=== PATIENT | female | born 1950 | race Caucasian/White ===

== ENCOUNTER 2023-07-10 11:33 | Outpatient (OUT) | payer MEDICARE, SELFPAY ==
[2023-07-10 12:34] LABS: Basophils Absolute Auto 0.1 10^3/uL (0.0-0.1); Basophils Percent Auto 0.8 % (0.2-2.0); Eosinophils Absolute Auto 0.2 10^3/uL (0.0-0.7); Hematocrit 40.8 % (36.0-48.0); Hemoglobin 13.3 g/dL (12.0-16.0); Immature Granulocytes Abs Auto 0.01 10^3/uL (0.00-0.03); Immature Granulocytes Pct Auto 0.2 % (0.0-0.5); Lymphocytes Percent Auto 33.3 % (20.5-60.0); Mean Corpuscular HGB Conc 32.6 g/dL (29.9-35.2); Mean Corpuscular Hemoglobin 31.3 pg (26.7-34.0); Monocytes Absolute Auto 0.5 10^3/uL (0.3-0.8); Monocytes Percent Auto 9.1 % (1.7-12.0); Neutrophils Absolute Auto 3.2 10^3/uL (1.4-6.5); Neutrophils Percent Auto 53.6 % (43.0-75.0); Platelet Count 264 10^3/uL (150-450); Red Blood Count 4.25 10^6/uL (4.20-5.40); White Blood Count 5.9 10^3/uL (4.0-11.0)
[2023-07-10 12:41] LABS: Estimated Average Glucose 114 mg/dL; Glycohemoglobin A1C 5.6 % (4.5-6.2)
[2023-07-10 13:47] LABS: Erythrocyte Sedimentation Rate 62 mm/hr (<=30)
[2023-07-10 13:53] LABS: Alanine Aminotransferase 17 U/L (14-59); Albumin Globulin Ratio 0.9; Albumin Level 3.8 g/dL (3.4-5.0); Alkaline Phosphatase 75 U/L (46-116); Anion Gap 12.5; Aspartate Amino Transferase 24 U/L (15-37); BUN Creatinine Ratio 17.1; Bilirubin Total 0.5 mg/dL (0.2-1.0); Calcium 9.6 mg/dL (8.5-10.1); Carbon Dioxide 29.8 mmol/L (21.0-32.0); Chloride 102 mmol/L (98-107); Chol HDL Ratio 5.9; Cholesterol 287 mg/dL (<=200); Estimated GFR (African America >60 (>=60); Estimated GFR (Non-African Ame >60 (>=60); Glucose 101 mg/dL (74-106); HDL Cholesterol 49 mg/dL (40-60); Potassium 4.3 mmol/L (3.5-5.1); Sodium 140 mmol/L (136-145); Thyroid Stimulating Hormone 1.142 uIU/mL (0.358-3.740); Total Protein 7.8 g/dL (6.4-8.2); Triglycerides 162 mg/dL (<=150); VLDL CHOLESTEROL 32.4 mg/dL
[2023-07-10 16:19] LABS: Free T4 1.15 ng/dL (0.76-1.46)
== END 2023-07-10 11:34 | disposition home or self-care (01) ==
LOC: LAB 11:40
PROVIDERS: PCP Family Medicine; Visit Provider Family Medicine
DX: E55.9 Vitamin D deficiency, unspecified (principal); E78.5 Hyperlipidemia, unspecified; R73.09 Other abnormal glucose
CPT/HCPCS: 36415; 80053; 80061; 83036; 84439; 84443; 85025; 85652

== ENCOUNTER 2024-02-26 09:57 | Outpatient (OUT) | payer MEDICARE, SELFPAY ==
[2024-02-26 10:31] LABS: Basophils Absolute Auto 0.1 10^3/uL (0.0-0.1); Basophils Percent Auto 0.9 % (0.2-2.0); Eosinophils Absolute Auto 0.2 10^3/uL (0.0-0.7); Eosinophils Percent Auto 4.3 % (0.9-7.0); Hematocrit 39.8 % (36.0-48.0); Hemoglobin 12.9 g/dL (12.0-16.0); Immature Granulocytes Abs Auto 0.01 10^3/uL (0.00-0.03); Immature Granulocytes Pct Auto 0.2 % (0.0-0.5); Lymphocytes Absolute Auto 1.8 10^3/uL (1.2-3.8); Lymphocytes Percent Auto 32.4 % (20.5-60.0); Mean Corpuscular HGB Conc 32.4 g/dL (29.9-35.2); Mean Corpuscular Hemoglobin 30.8 pg (26.7-34.0); Mean Platelet Volume 8.8 fL (9.5-13.5); Monocytes Absolute Auto 0.5 10^3/uL (0.3-0.8); Monocytes Percent Auto 9.5 % (1.7-12.0); Neutrophils Absolute Auto 2.9 10^3/uL (1.4-6.5); Neutrophils Percent Auto 52.7 % (43.0-75.0); Platelet Count 247 10^3/uL (150-450); Red Blood Count 4.19 10^6/uL (4.20-5.40); Red Cell Distribution Width 12.8 % (11.0-15.0); White Blood Count 5.6 10^3/uL (4.0-11.0)
[2024-02-26 11:43] LABS: Estimated Average Glucose 117 mg/dL; Glycohemoglobin A1C 5.7 % (4.5-6.2)
[2024-02-26 11:49] LABS: Alanine Aminotransferase 22 U/L (14-59); Albumin Globulin Ratio 0.9; Albumin Level 3.4 g/dL (3.4-5.0); Alkaline Phosphatase 74 U/L (46-116); Aspartate Amino Transferase 18 U/L (15-37); BUN Creatinine Ratio 14.3; Bilirubin Total 0.4 mg/dL (0.2-1.0); Calcium 9.3 mg/dL (8.5-10.1); Carbon Dioxide 29.4 mmol/L (21.0-32.0); Chloride 105 mmol/L (98-107); Chol HDL Ratio 5.8; Cholesterol 280 mg/dL (<=200); Estimated GFR (African America >60 (>=60); Estimated GFR (Non-African Ame >60 (>=60); Free T3 2.71 pg/mL (2.18-3.98); Glucose 95 mg/dL (74-106); HDL Cholesterol 48 mg/dL (40-60); Potassium 4.4 mmol/L (3.5-5.1); Sodium 142 mmol/L (136-145); Thyroid Stimulating Hormone 1.972 uIU/mL (0.358-3.740); Total Protein 7.4 g/dL (6.4-8.2); Triglycerides 233 mg/dL (<=150); VLDL CHOLESTEROL 46.6 mg/dL
== END 2024-02-26 09:58 | disposition home or self-care (01) ==
LOC: LAB 10:00
PROVIDERS: PCP Family Medicine; Visit Provider Family Medicine
DX: R41.3 Other amnesia (principal); E55.9 Vitamin D deficiency, unspecified; M79.7 Fibromyalgia; E78.5 Hyperlipidemia, unspecified; R73.09 Other abnormal glucose; D64.9 Anemia, unspecified
CPT/HCPCS: 36415; 80053; 80061; 82306; 83036; 83540; 84436; 84443; 84481; 85025

== ENCOUNTER 2024-03-02 12:39 | Outpatient (OUT) | payer MEDICARE, SELFPAY ==
--- NOTE | 2024-03-02 12:44 | XR_ITS ---
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 FINDINGS: SPINE ANALYSIS: Average bone mineral density is 0.862 g/cm2. T-score (standard deviation relative to young adult mean): -2.8 . +0.4% change since prior study. HIP ANALYSIS: Lowest bone mineral density is within the right femoral neck, 0.67 g/cm2. T-score (standard deviation relative to young adult mean): -3.0 . -3.3% change since prior study. XR/XR DEXA axial skeleton IMPRESSION: [employer] Classification: Osteoporosis - High Fracture Risk FRAX: Unable to be calculated. Electronically authenticated by: ARMAND BOGGS Date: 03/02/2024 13:38
--- NOTE | 2024-03-02 12:44 | US_ITS ---
[address] [address] Patient Name: DENI WORTHY MRN: [id number] date: 1950 Sex: F Assigned Patient Location: Current Patient Location: Accession/Order Number: [id number] Exam Date: 03/02/2024 12:46 Report Date: 03/03/2024 05:58 At the request of: TOSHIA MAHARAJ Procedure: US carotid duplex BI EXAMINATION: US carotid duplex BI HISTORY: Occlusion and stenosis of bilateral carotid arteries I65.23 COMPARISON: No relevant comparison available. TECHNIQUE: Duplex Doppler ultrasound analysis of carotid and vertebral arteries. . Bilateral carotid arterial duplex examination was performed using B-mode, color flow and spectral analysis. Carotid stenosis is reported according to validated velocity parameters, similar to NASCET criteria. FINDINGS: RIGHT CAROTID ARTERY: Mild plaque without significant stenosis. RIGHT VERTEBRAL: Antegrade flow. Subclavian: PSV: 143.7 cm/s EDV: 0.0 cm/s CCA: Prox: PSV: 118.1 cm/s EDV: 19.5 cm/s Mid: PSV: 112.1 cm/s EDV: 17.5 cm/s Distal: PSV: 98.4 cm/s EDV: 19.5 cm/s BULB: PSV: 78.6 cm/s EDV: 15.6 cm/s ICA: Prox: PSV: 101.6 cm/s EDV: 22.4 cm/s Mid: PSV: 64.4 cm/s EDV: 17.6 cm/s Distal: PSV: 129.0 cm/s EDV: 37.0 cm/s ECA: PSV: 112.3 cm/s EDV: 5.8 cm/s VERTEBRAL: PSV: 72.0 cm/s EDV: 15.5 cm/s ICA/CCA ratio: PSV: 1.3 EDV: 1.9 LEFT CAROTID ARTERY: Mild plaque without significant stenosis. LEFT VERTEBRAL: Antegrade flow. Subclavian: PSV: 189.4 cm/s EDV: 0.0 cm/s CCA: Prox: PSV: 145.1 cm/s EDV: 28.8 cm/s Mid: PSV: 91.4 cm/s EDV: 23.6 cm/s Distal: PSV: 118.9 cm/s EDV: 23.6 cm/s BULB: PSV: 101.1 cm/s EDV: 18.7 cm/s ICA: Prox: PSV: 91.4 cm/s EDV: 31.7 cm/s Mid: PSV: 86.6 cm/s EDV: 22.0 cm/s Distal: PSV: 67.2 cm/s EDV: 18.7 cm/s ECA: PSV: 99.4 cm/s EDV: 5.8 cm/s VERTEBRAL: PSV: 91.4 cm/s EDV: 26.8 cm/s ICA/CCA ratio: PSV: 0.9 EDV: 0.8 US/US carotid duplex BI IMPRESSION: 1. 0-49% flow stenosis within the right and left carotid arteries. 2. Mild atherosclerotic disease bilaterally. Spectral Doppler US Thresholds Stenosis (%) PSV (cm/sec) VICA/VCCA 0-49 <150 <2.5 50-69 150-225 2.5-4.0 >70 >225 >4.0 Electronically authenticated by: ARMAND BOGGS Date: 03/03/2024 05:58
== END 2024-03-02 12:40 | disposition home or self-care (01) ==
LOC: US 12:40
PROVIDERS: PCP Family Medicine; Visit Provider Family Medicine
DX: I65.23 Occlusion and stenosis of bilateral carotid arteries (principal); E28.39 Other primary ovarian failure; M81.0 Age-related osteoporosis without current pathological fracture
CPT/HCPCS: 77080; 93880

== ENCOUNTER 2024-03-17 07:35 | Outpatient (RCR) | payer MEDICARE, SELFPAY ==
--- NOTE | 2024-03-17 14:04 | PC.NURSE ---
1400 tolerated injection without any s/s of reaction, educated on need to be taking calcium 1200 mg with vitamin. patient and daughter verbalize understanding. Released ambulatory
[2024-03-17] MEDS: DENOSUMAB 60 MG/ML SYRINGE SUBQ (14:40)
== END 2024-03-19 23:59 | disposition home or self-care (01) ==
LOC: INF 07:35
PROVIDERS: PCP Family Medicine; Visit Provider Family Medicine
DX: R41.3 Other amnesia (principal); I67.82 Cerebral ischemia; M81.0 Age-related osteoporosis without current pathological fracture
CPT/HCPCS: 70551; 96372; J0897

== ENCOUNTER 2024-03-17 12:27 | Outpatient (OUT) | payer MEDICARE, SELFPAY ==
--- OUTSIDE RECORDS SUMMARY | 2024-03-17 12:31 | XMS_ITS ---
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 Name Role Phone CAROL ANN, DR POPE Attending Unavailable HOY, DR POPE Primary Care Unavailable HOY, DR POPE Admitting Unavailable HOY, DR POPE Primary Care Unavailable HOY, DR POPE Consulting Unavailable HOY, DR POPE Admitting Unavailable HOY, DR POPE Attending Unavailable HOY, DR POPE Attending Unavailable HOY, DR POPE Primary Care Unavailable HOY, DR POPE Consulting Unavailable HOY, DR POPE Admitting Unavailable ZIEBER, DR ARMAND Pedro Consulting Unavailable HOY, DR POPE Attending Unavailable HOY, DR POPE Primary Care Unavailable HOY, DR POPE Consulting Unavailable HOY, DR POPE Admitting Unavailable ZIEBER, DR ARMAND Pedro Consulting Unavailable NILL, DR PARKS Admitting Unavailable HOY, DR POPE Primary Care Unavailable NILL, DR PARKS Consulting Unavailable NILL, DR PARKS Attending Unavailable HOY, DR POPE Attending Unavailable HOY, DR POPE Admitting Unavailable HOY, DR POPE Primary Care Unavailable HOY, DR POPE Primary Care Unavailable HOY, DR POPE Admitting Unavailable HOY, DR POPE Attending Unavailable HOY, DR POPE Primary Care Unavailable HOY, DR POPE Admitting Unavailable HOY, DR POPE Attending Unavailable HEREDIA, DR MIKE Pedro Consulting Unavailable HOY, DR POPE Consulting Unavailable WEST, DR TONJA Gray Consulting Unavailable PAY, DR WRIGHT Consulting Unavailable Violet, Kasey Consulting Unavailable HOY, DR POPE Attending Unavailable HOY, DR POPE Primary Care Unavailable HOY, DR POPE Admitting Unavailable HOY, DR POPE Primary Care Unavailable REQUEST, DR CHATTERJEE LISTED Consulting Unavaila ble REQUEST, DR CHATTERJEE LISTED Attending Unavaila ble REQUEST, DR CHATTERJEE LISTED Admitting Unavaila ble CAROL ANN, DR POPE Primary Care Unavailable REQUEST, NONE LISTED Consulting Unavaila ble REQUEST, NONE LISTED Attending Unavaila ble REQUEST, DR CHATTERJEE LISTED Admitting Unavaila ble HOY, DR POPE Consulting Unavailable HOY, DR POPE Attending Unavailable HOY, DR POPE Admitting Unavailable HOY, DR POPE Primary Care Unavailable HOY, DR POPE Consulting Unavailable HOY, DR POPE Attending Unavailable HOY, DR POPE Admitting Unavailable HOY, DR POPE Primary Care Unavailable WEST, DR TONJA Gray Consulting Unavailable CAROL ANN, DR POPE Primary Care Unavailable RAMCYNKLIZ Admitting Unavailable RAMCYNKLIZ Consulting Unavailable RAMBASEK, LIZ Attending Unavailable Tonja Fink Unavailable Allergies Allergy Classification Reported Allergen(s) Allergy Type Date of Onset Reaction(s) Facility (2 sources) Codeine Drug Allergy [facility] Repository (2 sources) house dust allergenic extract Drug Allergy [facility] (2 sources) [place] Containing Products Drug allergy (disorder) [facility] (2 sources) pine oil (Pinus sylvestris) Drug allergy (disorder) [facility] (2 sources) Codeine Drug Allergy vomiting [facility] Other (2 sources) multiple food allergies Propensity to adverse reactions Unknown Vascular Magnetics [facility] Social Intelligence Other Encounters Encounter Date Encounter Type Care Provider Facility Start: 08-30-2021 End: 08-30-2021 ambulatory Tonja Fink Other [facility] Other Start: 08-30-2021 Telephone encounter Tonja Fink [facility] Gastroenter[facility] Start: 08-10-[address] TOSHIA MAY Facility :[facility] Start: 08-07-2021 Office outpatient visit 25 minutes Tonja Fink [facility] Start: 08-01-2021 End: 08-02-[address] TOSHIA MAY Facility:[facility] Start: 07-10-2021 End: 07-11-[address] TOSHIA MAY Facility:[facility] Start: 06-13-2021 End: 06-13-[address] KASEY URIBE Facility:[facility] Start: 03-30-2021 End: 03-31-[address] TOSHIA MAY Facility:[facility] Start: 03-27-[address] TOSHIA MAY Facility :[facility] Start: 01-09-2021 End: 01-10-[address] TOSHIA MAY Facility:[facility] Start: 12-25-2020 End: 12-26-[address] TOSHIA MAY Facility:[facility] Start: 12-20-2020 End: 12-21-[address] TOSHIA MAY Facility:[facility] Start: 12-19-2020 End: 12-20-[address] TOSHIA MAY Facility:[facility] Start: 12-18-2020 End: 12-19-[address] TOSHIA MAY Facility:[facility] Start: 11-03-2020 End: 11-04-[address] TOSHIA MAY Facility:[facility] Start: 10-31-[address] TOSHIA MAY Facility :[facility] Medications Current Medications Medication Drug Class(es) Dates Sig (Normalized) Sig (Original) Citalopram (2 sources) Serotonin Reuptake Inhibitor CeleXA Active colestipol hydrochloride 1000 mg oral tablet (2 sources) Bile Acid Sequestrant Start: 08-07-2021 take 2 tablets by mouth every twenty-four hours Colestipol HCl 1 GM 2 tablets Orally Once a day for 30 days Jul, Active Completed/Discontinued Medications Medication Drug Class(es) Dates Sig (Normalized) Sig (Original) dicyclomine hydrochloride 20 mg oral tablet (2 sources) Anticholinergic Start: 08-01-2020 take 1 tablet by mouth every twelve hours Dicyclomine HCl 20 MG 1 tablet Orally TWICE A DAY for 30 day(s) Jul, Not-Taking metroNIDAZOLE 500 mg oral tablet (2 sources) Nitroimidazole Antimicrobial Start: 08-01-2020 take 1 tablet by mouth every eight hours metroNIDAZOLE 500 MG 1 tablet Orally Three times a day for 10 day(s) Jul, Not-Taking pantoprazole 40 mg delayed release oral tablet (2 sources) Proton Pump Inhibitor Start: 02-04-2019 take 1 tablet by mouth every twenty-four hours Pantoprazole Sodium 40 MG 1 tablet Orally Once a day for 30 day(s) Jan, Not-Taking Psyllium (2 sources) Metamucil Not-Taking Simvastatin (2 sources) HMG-CoA Reductase Inhibitor Simvastatin Not-Taking Suprep Bowel Prep Kit 17.5-3.13-1.6 GM/180ML (2 sources) Start: 05-07-2019 take 177 mL by mouth in the evening, then take 177 mL by mouth twice daily in the evening Suprep Bowel Prep Kit 17.5-3.13-1.6 GM/180ML 177 ml bottle at 4 pm and 177 ml bottle at 11 pm Orally Twice a day for 1 day(s) PLEASE CHECK ALLERGIES Apr, Not-Taking Payers Date Payer Category Payer Medicare [id number] 1961 Medicare [id number] 1961 Self-pay 1961 Unknown [id number] 1950 Unknown [id number] 2.16.84 [id number] 1950 Unknown [id number] 2.16.84 [id number] 1950 Unknown [id number] 2.16.84 [id number] 1950 Unknown [id number] 2.16.84 0.1.457152.3.579.2.593 1950 Unknown [id number] 2.16.84 0.1.842841.3.579.2.593 1950 Unknown [id number] 2.16.84 0.1.036007.3.579.2.593 1950 Unknown [id number] 2.16.84 0.1.076816.3.579.2.593 1950 Unknown [id number] 2.16.84 0.1.258926.3.579.2.593 1950 Unknown [id number] 2.16.84 0.1.108222.3.579.2.593 1950 Unknown [id number] 2.16.84 0.1.317734.3.579.2.593 1950 Unknown [id number] 2.16.84 0.1.664082.3.579.2.593 1950 Unknown [id number] 2.16.84 0.1.372644.3.579.2.593 Unknown [id number] 2.16.84 0.1.948697.3.579.2.593 Unknown [id number] 2.16.84 0.1.696677.3.579.2.593 Problems Active Problems Problem Classification Problem Date Documented Da te Episodic/Chronic Esophageal disorders (2 sources) Gastro-esophageal reflux disease without esophagitis; Translations: [Esophageal obstruction] Onset: 04-04-2021 Chronic Essential hypertension (1 source) Essential (primary) hypertension; Translations: [ESSENTIAL PRIMARY HYPERTENSION] Onset: 04-04-2021 Chronic Genitourinary symptoms and ill-defined conditions (5 sources) Dysuria; Translations: [Personal history of urinary (tract) infections] Onset: 04-04-2021 Episodic Mood disorders (1 source) Major depressive disorder, single episode, unspecified; Translations: [JULIAN DEPRESS D/O SINGLE EPIS UNS] Onset: 04-04-2021 Chronic Other connective tissue disease (1 source) Presence of unspecified artificial shoulder joint; Translations: [PRESENCE UNS ARTFICIAL SHOULDR JNT] Onset: 04-04-2021 Chronic Other gastrointestinal disorders (2 sources) Irritable bowel syndrome with diarrhea; Translations: [Irritable bowel syndrome with diarrhea] Chronic Other gastrointestinal disorders (1 source) Irritable bowel syndrome with diarrhea; Translations: [Irritable bowel syndrome with diarrhea K58.0] Onset: 08-07-2021 Resolved: 08-07-2021 Chronic Other non-traumatic joint disorders (4 sources) Pain in right hip; Translations: [PAIN IN RIGHT HIP] Onset: 07-10-2021 Episodic Other non-traumatic joint disorders (1 source) Pain in left hip; Translations: [PAIN IN LEFT HIP] Onset: 07-20-2021 Episodic Other skin disorders (4 sources) Sebaceous cyst; Translations: [SEBACEOUS CYST] Onset: 06-13-2021 Episodic Spondylosis; intervertebral disc disorders; other back problems (1 source) Other intervertebral disc degeneration, lumbosacral region; Translations: [OTH IV DISC DEGEN LUMBOSACRAL RGN] Onset: 11-09-2020 Chronic Unclassified (1 source) CONTACT W/AND (SUSP) EXPOS COVID-19; Translations: [CONTACT W/AND (SUSP) EXPOS COVID-19] Onset: 04-04-2021 Past or Other Problems Problem Classification Problem Date Documented Da te Episodic/Chronic Abdominal pain (6 sources) Unspecified abdominal pain; Translations: [Right lower quadrant pain] Onset: 12-19-2020 Resolved: 08-07-2021 Episodic Calculus of urinary tract (1 source) Personal history of urinary calculi; Translations: [PERSONAL HISTORY OF URINARY CALCULI] Onset: 04-04-2021 Episodic Hemorrhoids (1 source) Unspecified hemorrhoids; Translations: [UNSPECIFIED HEMORRHOIDS] Onset: 04-04-2021 Episodic Nonspecific chest pain (5 sources) Chest pain, unspecified; Translations: [Other chest pain] Onset: 03-30-2021 Episodic Other aftercare (1 source) Other coding file clerk (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; Translations: [OTH AMERICAN SIGN LANGUAGE INTERPRETER CURRENT DRUG THERAPY] Onset: 04-04-2021 Episodic Other and unspecified benign neoplasm (2 sources) Personal history of colonic polyps; Translations: [PERSONAL HISTORY OF COLONIC POLYPS] Onset: 04-04-2021 Resolved: 08-07-2021 Episodic Other and unspecified benign neoplasm (2 sources) History of polyp of colon; Translations: [Personal history of colonic polyps] Episodic Other connective tissue disease (1 source) Fibromyalgia; Translations: [FIBROMYALGIA] Onset: 04-04-2021 Episodic Other gastrointestinal disorders (1 source) Diarrhea, unspecified; Translations: [DIARRHEA UNSPECIFIED] Onset: 04-04-2021 Episodic Other lower respiratory disease (1 source) Shortness of breath; Translations: [SHORTNESS OF BREATH] Onset: 04-04-2021 Episodic Other lower respiratory disease (4 sources) Cough; Translations: [COUGH] Onset: 12-25-2020 Episodic Other screening for suspected conditions (not mental disorders or infectious disease) (4 sources) Other abnormal tumor markers; Translations: [OTHER ABNORMAL TUMOR MARKERS] Onset: 12-20-2020 Episodic Residual codes; unclassified (1 source) Acquired absence of both cervix and uterus; Translations: [ACQUIRED ABSENCE BOTH CERVIX AND UTERUS] Onset: 04-04-2021 Episodic Residual codes; unclassified (1 source) Acquired absence of other specified parts of digestive tract; Translations: [ACQ ABSENCE OTH PART DIGESTV TRACT] Onset: 04-04-2021 Episodic Residual codes; unclassified (2 sources) History of partial resection of colon; Translations: [Acquired absence of other specified parts of digestive tract] Episodic Results Test Name Value Interpretation Reference Range Facility CULTURE URINEon 08-01-2021 CULTURE URINE Culture Observations : No growth Normal [facility] Comment on above: Performed By: #### C MADM, CMP #### [facility] [address] [place] [address] Shakila Reardon UA (CLEAN/CATCH) MICROSCOPIC IF INDICATEon 08-01-2021 Bilirubin Ql (U) Negative Normal NEGATIVE [facility] Comment on above: Performed By: #### U ARMICR #### [facility] [address] [place] [address] Dr. Jarett Chou Clarity (U) CLEAR Normal CLEAR [facility] Comment on above: Performed By: #### U ARMICR #### [facility] [address] [place] [address] Dr. Jarett Chou Color (U) YELLOW Normal YELLOW [facility] Comment on above: Performed By: #### U ARMICR #### [facility] [address] [place] [address] Dr. Jarett Chou Glucose Ql (U) Negative Normal NEGATIVE [facility] Comment on above: Performed By: #### U ARMICR #### [facility] [address] [place] [address] Dr. Jarett Chou Hemoglobin Ql (U) Negative Normal NEGATIVE [facility] Comment on above: Performed By: #### U ARMICR #### [facility] [address] [place] [address] Dr. Jarett Chou Ketones Ql (U) Negative Normal NEGATIVE [facility] Comment on above: Performed By: #### U ARMICR #### [facility] [address] [place] [address] Dr. Jarett Chou LEUKOCYTES Negative Normal NEGATIVE [facility] Comment on above: Performed By: #### U ARMICR #### [facility] [address] [place] [address] Dr. Jarett Chou Nitrite Ql (U) Negative Normal NEGATIVE [facility] Comment on above: Performed By: #### U ARMICR #### [facility] [address] [address] [address] Jarett Chou pH (U) 5.5 [pH] Normal 5-9 [facility] Comment on above: Performed By: #### U ARMICR #### [facility] [address] [address] [address] Jarett Chou SPEC GRAVITY 1.025 Normal 1.005-<=1.025 [facility] Comment on above: Performed By: #### U ARMICR #### [facility] [address] [address] [address] Jarett Chou UA PROTEIN Negative Normal NEGATIVE/ TRACE [facility] Comment on above: Performed By: #### U ARMICR #### [facility] [address] [place] [address] Dr. Jarett Chou UR MICRO IND NOT INDICATED Normal [facility] Comment on above: Performed By: #### U ARMICR #### [facility] [address] [address] [address] Jarett Chou Urobilinogen Qn (U) 0.2 {Inocencio'U}/dL Normal 0.2 - 1.0 [facility] Comment on above: Performed By: #### U ARMICR #### [facility] [address] [place] [address] Dr. Jarett Chou Provider Letter [facility]-20 Provider Letter [facility] June 20, 2021 Toshia May, [facility] [place] [address] Re: MARCIA WORTHY Date of : 1950 Thank you for your referral of Marcia Worthy who was seen on consultation on June 19, 2021, for sebaceous cyst right breast. I have enclosed my consultation notes for your review. I will be happy to follow Marcia should her symptoms persist. Sincerely, Kasey Uribe MD General Surgery [facility] Provider Letter [facility] June 20, 2021 Toshia May, [address] [place] [address] Re: MARCIA WORTHY Date of : 1950 Thank you for your referral of Joseph Galarza who was seen on consultation on June 12, 2021, for epigastric pain with cramping, bloating, and nausea. Testing is planned for further evaluation. I have enclosed my consultation note for your review. I will be happy to follow Joseph should his symptoms persist. Sincerely, Kasey Uribe MD General Surgery Normal [facility] Ambulatory Clinical Summaryo n 06-19-2021 Ambulatory Clinical Summary {[id number]}CD:[id number] Normal [facility] General Surgery Office/Clini c Noteon 06-19-2021 General Surgery Office/Clinic Note Chief Complaint follow up I&D HPI Staff 7 day post operative follow up post in-office I&D sebaceous cyst right breast. Scant brown discharge. Redness and tenderness resolved. Keeping area covered with band-aid. History of Present Illness 6 days s/p I & D of left medial chest wall/breast abscess; doing well, no pain, no drainage; cx with light growth of Proteus; completed antibiotic therapy. Review of Systems ROS - Provider Constitutional: no fever, no sweats, no weight loss. Eyes: no glasses, no blurred vision, no visual loss. ENMT: no dentures, no hoarseness, no swallowing difficulties, no hearing loss, no ear infection(s), no nose bleeds. Cardiovascular: normal blood pressure, no chest pain, regular heartbeat, no heart murmur. Respiratory: no shortness of breath, no cough, no asthma, no wheezing. Gastrointestinal: no nausea, no vomiting, no diarrhea, no constipation, no blood in stool, no change in bowel habits, no abdominal pain, no hepatitis. Genitourinary: no kidney stones, no urine infection, no dysuria. Musculoskeletal: mild pain, no weakness. Skin: no changing moles, no rash, no skin lumps. Neurologic: no seizures, no epilepsy, no headache. Psychiatric: no emotional or psychiatric problem. Heme/Lymph: no bleeding problems, no anemia, no blood clots, no transfusions. Allergy/Immunologic: no swollen lymph nodes/glands, no IV drug abuse. Other: Additional ROS info: Except as noted in the above Review of Systems and in the History of Present Illness, all other systems have been reviewed and are negative or noncontributory. Physical Exam Vitals & Measurements T: 36.6 ?C (Temporal Artery) skin: abscess site without drainage; no open areas, minimal induration, no cellulitis, no fluctuance. Assessment/Plan 1. Furuncle of breast (N61.1: Abscess of the breast and nipple) doing well, keep area clean and dry; no ointments; call with problems/questions. Follow-up No qualifying data available Problem List/Past Medical History Ongoing BMI 23.0-23.9, adult Depression Fibromyalgia Furuncle of breast Hypercholesterolemia Infected sebaceous cyst Lumbar disc disease Historical No qualifying data Procedure/Surgical History Colonoscopy, Partial resection of colon, Vaginal hysterectomy. Medications cephalexin 500 mg Cap citalopram 10 mg Tab clindamycin 300 mg oral cap Allergies codeine (Nausea and vomiting) Social History Alcohol - Denies Alcohol Use, 06/12/2021 Substance Abuse - Denies Substance Abuse, 06/12/2021 Tobacco Former smoker, quit more than 30 days ago Tobacco Use:. Never Smokeless Tobacco Use:. Cigarettes, 10 per day. Started age 18.0 Years. Stopped age 29 Years., 06/19/2021 Family History Cardiac arrest: Father. Hypertension: Brother. Primary malignant neoplasm of colon: Mother. Normal [facility] Comment on above: Result Comment: Elec tronically Signed By: RODDY WILSON, Kasey Burton\Date and Time Signed: 06/19/21 14:48 EDT Lab Reportson 06-19-2021 Lab Reports [id number]:[id number] Normal [facility] CULTURE WOUNDon 06-16-2021 CULTURE WOUND Isolate 1 Proteus mirabilis Light growth of ORGANISM 1 Proteus mirabilis ANTIBIOTIC M.I.C RX STATUS Ampicillin >=32 R F Ampicillin/Sulbactam 8 S F Piperacillin/Tazobactam <=4 S F Cefazolin 8 S F Ceftazidime <=1 S F Ceftriaxone <=1 S F Ertapenem <=0.5 S F Imipenem 1 S F Amikacin <=2 S F Gentamicin <=1 S F Tobramycin <=1 S F Ciprofloxacin <=0.25 S F Levofloxacin <=0.12 S F Trimethoprim/Sulfamethoxazo le >=320 R F Normal [facility] Comment on above: Performed By: #### C [place], [facility] #### [facility] [address] [place], [place] [address] Shakila Reardon Ambulatory Clinical Summaryo n 06-12-2021 Ambulatory Clinical Summary {[id number]}CD:61 [id number] Normal [facility] XR pre/post mri xrayon 04-05 XR pre/post mri xray [facility] [place] [address] MRI Report Signed Patient: Marcia Worthy MR#: [id number] : 1950 Acct:[id number] Age/Sex: 70 / F ADM Date: 04/05/21 Loc: [facility] Room: Type: [facility] Attending Dr: Toshia May MD Ordering Provider: Toshia May MD Date of Service: 04/05/21 MR/MR lumbar spine wo con: m32.89, m51.9, r10.31 ([id number]) XR/XR pre/post mri xray: N32.89, M51.9 Copies to: Toshia May MD MRI lumbar spine withoutcontrast TECHNIQUE: Multiplanar T1 and T2-weighted imaging of lumbar spine obtained without contrast. HISTORY:Right-sided radiculopathy. Lower back pain. COMPARISON:None Lumbar lordosis is adequate. No listhesis is identified in supine position. No lumbar spine fracture is identified. No hydronephrosis is identified. No aortic aneurysm is seen. The distal spinal cord is in adequate position without abnormality.No hydronephrosis. T11-12 level is unremarkable. T12-L1 level is unremarkable. L1-2:Disc desiccation. Mild diffuse disc bulge. Patent central canal and neural foramen. L2-3: Disc desiccation. Mild diffuse disc bulge. The central canal. Mild bilateral neural foraminal narrowing. L3-4:Disc desiccation. Mild diffuse disc bulge. Patent central canal. Mild bilateral neural foraminal narrowing. L4-5:Disc desiccation. Mild diffuse disc bulge. Patent central canal. Mild to moderate bilateral neural foraminal narrowing. L5-S1:Disc space narrowing and disc desiccation. Anterior osteophytosis and disc bulge. There are reactive degenerative endplate changes. Posterior diffuse disc bulge. Mild to moderate bilateral neural foraminal narrowing. MR/MR lumbar spine wo con IMPRESSION:Multilevel discovertebral degenerative changes. Diffuse disc bulge. Patent central canal. Neuroforaminal narrowing as above. 2 views of the lumbar spine Diffuse osteopenia. No compression fracture. Disc space narrowing most prevalent the L5-S1 level. Anterior endplate spurring. Lower lumbar hypertrophic facet changes. RIGHT upper quadrant surgical clips. IMPRESSION: Diffuse osteopenia. Lower lumbar degeneration. No acute findings. Impression dictated by: Thomas Morton M.D.04/05/2021 3:05 PM Dictation Location: [place] [address] Transcribed By: [facility] 04/05/21 1505 Dictated By: Thomas Morton DO 04/05/21 1459 Signed By: 04/05/21 1505 [facility] AMYLASEon 03-31-2021 Amylase [Catalytic activity/Vol] 75 U/L Normal 31-110 [facility] Comment on above: Performed By: #### C BC #### [facility] [address] [place], [place] [id number] Shakila Caron CBC AUTO DIFFon 03-31-2021 BASO # 0.0 103/ul Normal 0.0-0.1 [facility] Comment on above: Performed By: #### C BC #### [facility] [address] [place], [place] [id number] Shakila Caron Basophils/100 WBC (Bld) 0.1 % Critically low 0.2-2.0 [facility] Comment on above: Performed By: #### C BC #### [facility] [address] [place], [place] [address] Shakila Caron EO # 0.0 103/ul Normal 0.0-0.7 [facility] Comment on above: Performed By: #### C BC #### [facility] [address] [place], [place] [id number] Shakila Caron Eosinophils/100 WBC (Bld) 0.0 % Critically low 0.9-7.0 [facility] Comment on above: Performed By: #### C BC #### [facility] [address] [place] [address] Shakila Reardon Erythrocyte distribution width (RBC) [Ratio] 12.8 % Normal 11.0-15.0 [facility] Comment on above: Performed By: #### C BC #### [facility] [address] [place] [address] Shakila Reardon Hematocrit (Bld) [Volume fraction] 36.8 % Normal 36.0-48.0 [facility] Comment on above: Performed By: #### C BC #### [facility] [address] [place] [address] Shakila Reardon Hemoglobin (Bld) [Mass/Vol] 12.2 g/dL Normal 12.0-16.0 [facility] Comment on above: Performed By: #### C BC #### [facility] [address] [place] [address] Shakiladomingo Reardon IG # 0.05 10e3/ul Critically high 0.00-0.03 [facility] Comment on above: Performed By: #### C BC #### [facility] [address] [place] [address] Shakila Reardon IG % 0.4 % Normal 0.0-0.5 [facility] Comment on above: Performed By: #### C BC #### [facility] [address] [place] [address] Shakila Tellezen LYMPH # 1.5 103/ul Normal 1.2-3.8 [facility] Comment on above: Performed By: #### C BC #### [facility] [address] [place] [address] Shakila Reardon Lymphocytes/100 WBC (Bld) 11.8 % Critically low 20.5-60.0 [facility] Comment on above: Performed By: #### C BC #### [facility] [address] [place] [address] Shakila Reardon MANUAL DIFF REQ NO Normal [facility] Comment on above: Performed By: #### C BC #### [facility] [address], [place] [address] Shakila Reardon MCH (RBC) [Entitic mass] 31.7 pg Normal 26.7-34.0 [facility] Comment on above: Performed By: #### C BC #### [facility] [address] [id number] Shakila Reardon MCHC (RBC) [Mass/Vol] 33.2 g/dL Normal 29.9-35.2 [facility] Comment on above: Performed By: #### C BC #### [facility] [address] [id number] Shakila Reardon MCV (RBC) [Entitic vol] 95.6 fL Normal 81.0-99.0 [facility] Comment on above: Performed By: #### C BC #### [facility] [address] [place], [place] [id number] Shakila Reardon MONO # 0.4 103/ul Normal 0.3-0.8 [facility] Comment on above: Performed By: #### C BC #### [facility] [address] [id number] Shakila Reardon Monocytes/100 WBC (Bld) 3.0 % Normal 1.7-12.0 [facility] Comment on above: Performed By: #### C BC #### [facility] [address] [id number] Shakila Reardon NEUT # 11.0 103/ul Critically high 1.4-6.5 [facility] Comment on above: Performed By: #### C BC #### [facility] [address] [place], [place] [phone] Shakila Reardon Neutrophils/100 WBC (Bld) 84.7 % Critically high 43.0-75.0 [facility] Comment on above: Performed By: #### C BC #### [facility] [address], [place] [address] Shakiladomingo Reardon Platelet mean volume (Bld) [Entitic vol] 9.0 fL Critically low 9.5-13.5 [facility] Comment on above: Performed By: #### C BC #### [facility] [address] [place] [address] Shakila Caron PLT 223 103/ul Normal 150-450 [facility] Comment on above: Performed By: #### C BC #### [facility] [address] [place] [address] Shakila Caron RBC 3.85 106/ul Critically low 4.20-5.40 [facility] Comment on above: Performed By: #### C BC #### [facility] [address] [place] [address] Shakila Caron WBC 12.9 103/ul Critically high 4.0-11.0 [facility] Comment on above: Performed By: #### C BC #### [facility] [address] [place] [address] Shakila Caron LIPASEon 03-31-2021 Lipase [Catalytic activity/Vol] 205.0 U/L Normal 23.0-300.0 [facility] Comment on above: Performed By: #### C BC #### [facility] [address] [place] [address] Shakila Reardon PROF 14(COMP METB)on 021 Albumin [Mass/Vol] 3.4 g/dL Critically low 3.5-5.0 [facility] Comment on above: Performed By: #### C BC #### [facility] [address] [place] [address] Shakila Caron Albumin/Globulin [Mass ratio] 0.8 {ratio} Normal [facility] Comment on above: Performed By: #### C BC #### [facility] [address] [place] [address] Shakila Caron ALP [Catalytic activity/Vol] 54 U/L Normal 38-126 [facility] Comment on above: Performed By: #### C BC #### [facility] [address] [place] [address] Shakila Caron ALT [Catalytic activity/Vol] 29 U/L Normal 9-52 [facility] Comment on above: Performed By: #### C BC #### [facility] [address] [id number] Shakila Caron Anion gap [Moles/Vol] 15.2 mmol/L Normal [facility] Comment on above: Performed By: #### C BC #### [facility] [address] [id number] Shakila Caron AST [Catalytic activity/Vol] 31 U/L Normal 14-36 [facility] Comment on above: Performed By: #### C BC #### [facility] [address] [place] [address] Shakila Caron Bilirubin [Mass/Vol] 0.3 mg/dL Normal 0.2-1.3 [facility] Comment on above: Performed By: #### C BC #### [facility] [address] [place] [address] Shakila Caron Calcium [Mass/Vol] 9.2 mg/dL Normal 8.4-10.2 [facility] Comment on above: Performed By: #### C BC #### [facility] [address] [place] [address] Shakila Caron Chloride [Moles/Vol] 106 mmol/L Normal 98-107 [facility] Comment on above: Performed By: #### C BC #### [facility] [address] [place] [address] Shakila Caron CO2 [Moles/Vol] 23.4 mmol/L Normal 22.0-30.0 [facility] Comment on above: Performed By: #### C BC #### [facility] [address] [place] [address] Shakila Caron Creatinine [Mass/Vol] 0.89 mg/dL Normal 0.52-1.04 [facility] Comment on above: Performed By: #### C BC #### [facility] [address] [place], [place] [phone] Shakila Caron EGFR-AF DJIBOUTIAN >60 Normal >=60 [facility] Comment on above: Performed By: #### C BC #### [facility] [address] [place], [place] [phone] Shakila Caron EGFR-NON AF DJIBOUTIAN >60 Normal >=60 [facility] Comment on above: Performed By: #### C BC #### [facility] [address], [place] [address] Shakila Caron Globulin (S) [Mass/Vol] 4.1 g/dL Normal [facility] Comment on above: Performed By: #### C BC #### [facility] [address], [place] [address] Shakila Caron Glucose [Mass/Vol] 145 mg/dL Critically high 74-106 [facility] Comment on above: Performed By: #### C BC #### [facility] [address], [place] [address] Shakila Caron Potassium [Moles/Vol] 4.6 mmol/L Normal 3.4-5.0 [facility] Comment on above: Performed By: #### C BC #### [facility] [address] [place], [place] [phone] Shakila Caron Protein [Mass/Vol] 7.5 g/dL Normal 6.1-8.2 [facility] Comment on above: Performed By: #### C BC #### [facility] [address] [place], [place] [phone] Shakila Caron Sodium [Moles/Vol] 140 mmol/L Normal 137-145 [facility] Comment on above: Performed By: #### C BC #### [facility] [address] [place] [address] Shakila Caron Urea nitrogen [Mass/Vol] 31.0 mg/dL Critically high 7.0-17.0 [facility] Comment on above: Performed By: #### C BC #### [facility] [address] [place] [address] Shakila Caron Urea nitrogen/Creatinin e [Mass ratio] 34.8 mg/mg Normal [facility] Comment on above: Performed By: #### C BC #### [facility] [address] [place] [address] Shakila Caron C. DIFF PCRon 03-30-2021 C. DIFFICILE PCR Negative Normal NEGATIVE [facility] Comment on above: Performed By: #### C DIFPOC #### [facility] [address], [place] [address] Shakila Caron CARDIAC MIKE 3-6on 1 CK [Catalytic activity/Vol] 58 U/L Normal 30-135 [facility] Comment on above: Performed By: #### C MREP #### [facility] [address], [place] [address] Shakila Caron CK [Catalytic activity/Vol] 53 U/L Normal 30-135 [facility] Comment on above: Performed By: #### C MADM, CMP #### [facility] [address] [place] [address] Shakila Caron CK.MB [Mass/Vol] 0.84 ng/mL Normal <=2.37 [facility] Comment on above: Performed By: #### C MREP #### [facility] [address] [place] [address] Shakila Caron CK.MB [Mass/Vol] 0.85 ng/mL Normal <=2.37 [facility] Comment on above: Performed By: #### C MADM, CMP #### [facility] [address] [place], [place] [phone] Shakila Caron HSTROP 5.0 pg/mL Normal 4.0-35.5 [facility] Comment on above: Result Comment: CUT- OFF POINTS HAVE BEEN ESTABLISHED BASED ON THE FOURTH UNIVERSAL DEFINITIONS OF MYOCARDIAL INFARCTION. THE UPPER REFERENCE LIMIT (URL) OF TROPONIN, DEFINED THE 99TH PERCENTILE OF cTnI DISTRIBUTION IN A REFERENCE POPULATION, HAS BEEN CONFIRMED THE DECISION THRESHOLD FOR KS DIAGNOSIS. Performed By: #### C MREP #### [facility] [address] [place] [address] Shakila Caron HSTROP 7.9 pg/mL Normal 4.0-35.5 [facility] Comment on above: Result Comment: CUT- OFF POINTS HAVE BEEN ESTABLISHED BASED ON THE FOURTH UNIVERSAL DEFINITIONS OF MYOCARDIAL INFARCTION. THE UPPER REFERENCE LIMIT (URL) OF TROPONIN, DEFINED THE 99TH PERCENTILE OF cTnI DISTRIBUTION IN A REFERENCE POPULATION, HAS BEEN CONFIRMED THE DECISION THRESHOLD FOR [place] DIAGNOSIS. Performed By: #### C MADM, CMP #### [facility] [address] [id number] Shakiladomingo Reardon CARDIAC MIKE ADMITon 021 CK [Catalytic activity/Vol] 53 U/L Normal 30-135 [facility] Comment on above: Performed By: #### C RAIN, CMP #### [facility] [address] [address] Shakila Caron CK.MB [Mass/Vol] 0.62 ng/mL Normal <=2.37 [facility] Comment on above: Performed By: #### C RAIN, CMP #### [facility] [address] [address] Shakila Caron HSTROP <4.0 Normal 4.0-35.5 [facility] Comment on above: Result Comment: CUT- OFF POINTS HAVE BEEN ESTABLISHED BASED ON THE FOURTH UNIVERSAL DEFINITIONS OF MYOCARDIAL INFARCTION. THE UPPER REFERENCE LIMIT (URL) OF TROPONIN, DEFINED THE 99TH PERCENTILE OF cTnI DISTRIBUTION IN A REFERENCE POPULATION, HAS BEEN CONFIRMED THE DECISION THRESHOLD FOR KS DIAGNOSIS. Performed By: #### C RAIN, CMP #### [facility] [address] [place] [address] Shakila Caron JESSICA 28.0 ng/mL Normal <=61.5 [facility] Comment on above: Performed By: #### C RAIN, CMP #### [facility] [address] [place] [address] Shakila Caron CBC AUTO DIFFon 03-30-2021 BASO # 0.1 103/ul Normal 0.0-0.1 [facility] Comment on above: Performed By: #### C BC #### [facility] [address] [place] [address] Shakila Caron Basophils/100 WBC (Bld) 0.8 % Normal 0.2-2.0 [facility] Comment on above: Performed By: #### C BC #### [facility] [address] [place], [place] [address] Shakila Caron EO # 0.2 103/ul Normal 0.0-0.7 [facility] Comment on above: Performed By: #### C BC #### [facility] [address] [place], [place] [address] Shakila Caron Eosinophils/100 WBC (Bld) 3.1 % Normal 0.9-7.0 [facility] Comment on above: Performed By: #### C BC #### [facility] [address] [place], [place] [address] Shakila Caron Erythrocyte distribution width (RBC) [Ratio] 12.6 % Normal 11.0-15.0 [facility] Comment on above: Performed By: #### C BC #### [facility] [address] [place], [place] [address] Shakila Caron Hematocrit (Bld) [Volume fraction] 40.6 % Normal 36.0-48.0 [facility] Comment on above: Performed By: #### C BC #### [facility] [address] [place] [address] Shakila Caron Hemoglobin (Bld) [Mass/Vol] 13.6 g/dL Normal 12.0-16.0 [facility] Comment on above: Performed By: #### C BC #### [facility] [address] [place] [address] Shakila Caron IG # 0.01 10e3/ul Normal 0.00-0.03 [facility] Comment on above: Performed By: #### C BC #### [facility] [address] [place] [address] Shakila Caron IG % 0.2 % Normal 0.0-0.5 [facility] Comment on above: Performed By: #### C BC #### [facility] [address] [place] [address] Shakila Caron LYMPH # 2.0 103/ul Normal 1.2-3.8 [facility] Comment on above: Performed By: #### C BC #### [facility] [address] [place], [place] [phone] Shakila Caron Lymphocytes/100 WBC (Bld) 31.0 % Normal 20.5-60.0 [facility] Comment on above: Performed By: #### C BC #### [facility] [address] [place] [address] Shakila Reardon MANUAL DIFF REQ NO Normal [facility] Comment on above: Performed By: #### C BC #### [facility] [address] [place] [address] Shakila Reardon MCH (RBC) [Entitic mass] 31.9 pg Normal 26.7-34.0 [facility] Comment on above: Performed By: #### C BC #### [facility] [address] [place] [address] Shakila Reardon MCHC (RBC) [Mass/Vol] 33.5 g/dL Normal 29.9-35.2 [facility] Comment on above: Performed By: #### C BC #### [facility] [address] [place] [address] Shakila Reardon MCV (RBC) [Entitic vol] 95.1 fL Normal 81.0-99.0 [facility] Comment on above: Performed By: #### C BC #### [facility] [address] [place] [address] Shakila Reardon MONO # 0.7 103/ul Normal 0.3-0.8 [facility] Comment on above: Performed By: #### C BC #### [facility] [address] [place] [address] Shakila Reardon Monocytes/100 WBC (Bld) 10.7 % Normal 1.7-12.0 [facility] Comment on above: Performed By: #### C BC #### [facility] [address] [place] [address] Shakila Reardon NEUT # 3.5 103/ul Normal 1.4-6.5 [facility] Comment on above: Performed By: #### C BC #### [facility] [address] [place] [address] Shakila Reardon Neutrophils/100 WBC (Bld) 54.2 % Normal 43.0-75.0 [facility] Comment on above: Performed By: #### C BC #### [facility] [address] [place] [address] Shakiladomingo Reardon Platelet mean volume (Bld) [Entitic vol] 8.9 fL Critically low 9.5-13.5 [facility] Comment on above: Performed By: #### C BC #### [facility] [address], [place] [address] Shakila Reardon PLT 231 103/ul Normal 150-450 [facility] Comment on above: Performed By: #### C BC #### [facility] [address], [place] [address] Shakila Tellezen RBC 4.27 106/ul Normal 4.20-5.40 [facility] Comment on above: Performed By: #### C BC #### [facility] [address], [place] [address] Shakila Reardon WBC 6.5 103/ul Normal 4.0-11.0 [facility] Comment on above: Performed By: #### C BC #### [facility] [address], [place] [address] ABD/PELV W CONon 03-30-20 CT ABD/PELV W CON EXAMINATION: CT ABD/ PELV W CON HISTORY: Upper abdominal pain for a day. COMPARISON: CT dated 05/08/2020 TECHNIQUE: A contrast-enhanced scan was performed. Sagittal and coronal reformatted images were produced. Dose reduction techniques were achieved by using automated exposure control and/or adjustment of mA and/or kV according to patient size and/or use of iterative reconstruction technique. FINDINGS: The lung bases are clear. Lower mediastinal structures are stable in appearance. The liver shows stable mild fatty change with stable distention of the central bile ducts after cholecystectomy. The spleen, adrenal glands, and pancreas are normal. There is a simple appearing cyst in the tail of the pancreas. This is stable. The kidneys enhance symmetrically and show no hydronephrosis. There is a 4 mm calcification in the right lower pole kidney. Stable calcified plaque in the aorta and branch vessels. The large and small bowel are normal caliber. Surgical changes of hysterectomy. The urinary bladder is normal. There is no free air or free fluid and no inflammatory stranding is seen. Osseous structures are stable in appearance. IMPRESSION: No acute process. No abnormality is seen to clearly account for the symptoms. Other stable findings as above. Electronically authenticated by: KASEY CAVAZOS Date: 2021-03-30 11:15 Normal [facility] CULTURE URINEon 03-30-2021 CULTURE URINE Culture Observations : NO GROWTH. Normal [facility] Comment on above: Performed By: #### C RAIN, [facility] #### [facility] [address] [place] [address] Shakila Reardon Covid-19 PCR ([facility])on 03-20 SARS-CoV-2 (COVID-19) RNA LISA+probe Ql (Unsp spec) Not detected Normal NOT DETECTED [facility] Comment on above: Result Comment: This test is not yet approved or cleared by the [place] FDA. When there are no FDA-approved or cleared tests available, and other criteria are met, FDA can make tests available under an emergency access mechanism called an Emergency Use Authorization (EUA). The EUA for this test is supported by the [employer] Operator of Health and Human Service's (HHS's) declaration that circumstances exist to justify the emergency use of in vitro diagnostics for the detection and/or diagnosis of the virus that causes COVID-19. This EUA will remain in effect (meaning this test can be used) for the duration of the COVID-19 declaration justifying emergency of IVDs, unless it is terminated or revoked by FDA (after which the test may no longer be used). When diagnostic testing is negative, the possibility of a false negative should be considered in the context of a patient's recent exposures and the presence of clinical signs and symptoms consistent with SARS-CoV-2. Performed By: #### [facility] #### [facility] [address] [place] [address] Shakila Reardon ECHOCARDIO M/2D COMPLETEon 0 03-30-2021 ECHOCARDIO M/2D COMPLETE Patient: MARCIA WORTHY Exam Date: 03/30/2021 : 1950 Gender:F Ordering : DR TOSHIA MAY . Admission #: [id number] Family : Order #: [id number] CLICK HERE TO VIEW EXAM ECHOCARDIOGRAM REPORT PROCEDURE: CARDIO PULMONARY ECHOCARDIO M/2D COMP INDICATIONS: Chest pain, hypertension COMPARISON: None. DESCRIPTION: COMPLETE ECHOCARDIOGRAM Real-time transthoracic echocardiography with 2D, M-mode, spectral and color flow Doppler performed. QUALITY: Technical quality was good. LEFT VENTRICLE: Normal chamber size. Borderline left ventricular hypertrophy. LV EF: Global left ventricular systolic function is hyperdynamic; ejection fraction is estimated to be 65 to 70%. No regional wall motion abnormalities. DIASTOLIC: Normal diastolic function. ATRIAL SEPTUM: Inadequately seen. LEFT ATRIUM: Normal chamber size. RIGHT ATRIUM: Normal chamber size. RIGHT VENTRICLE: Normal chamber size. Normal systolic function. TRICUSPID VALVE: Normal mobility and thickness. No stenosis with trace regurgitation. No evidence of pulmonary hypertension. RVSP 16 mmHg MITRAL VALVE: Normal mobility and thickness. No evidence of mitral valve stenosis. There is no mitral annular calcification. Trace mitral regurgitation. AORTIC VALVE: Normal trileaflet appearance. Thickened aortic valve. Normal leaflet mobility. No evidence of aortic valve stenosis. No aortic regurgitation. AORTIC ROOT: Normal diameter and appearance. PULMONIC VALVE: Normal thickness and mobility. No stenosis. No regurgitation. PERICARDIUM: No evidence of pericardial effusion. IVC: Collapses with inspirations. CONCLUSION: Global left ventricular systolic function is hyperdynamic; visually estimated ejection fraction 65 to 70%. The right ventricle is normal in size and systolic function. No significant valvular abnormalities. Adult Echocardiography Procedure Report Left Ventricle LVEDD (3.7 - 5.6 cm): 2.84 cm LVESD (2.2 - 4.0 cm): 1.85 cm LVIVS thickness (0.6 - 1.2 cm): 9.14 mm LVPW thickness (0.5 - 1.0 cm): 1.01 cm e': 10.30 cm/s E - e': 10 LVOT Area (cm2): 3.46 cm2 LVOT Diameter 2.10 cm Left Ventricular Ejection Fraction: 66 % Left Atrium LA Volume Index (2D A2C): 12.30 ml/m2 Left Atrium Systolic Dimension: 3.30 cm Left Atrium Systolic Area(A2C): 10.00 cm2 Left Atrium Systolic Area(A4C): 12.80 cm2 Left Atrium Systolic Volume(A2C): 27302 mm3 Left Atrium Systolic Volume(A4C): 69529 mm3 Mitral Valve MV E to A Ratio: 1.10 Mitral Valve A-Wave Peak Velocity: 89.80 cm/s Mitral Valve E-Wave Peak Velocity: 103.00 cm/s Deceleration Time: 185 ms Right Ventricle Aorta AO Root Diam: 2.90 cm Aortic Valve AoV Area (Peak Nelson): 2.02 cm2 Peak Velocity(Antegrade Flow): 133.00 cm/s Peak Gradient(Antegrade Flow): 7 mm[Hg] Tricuspid Valve Pulmonic Valve Peak Velocity: 81.90 cm/s Peak Gradient: 3 mm[Hg] Right Atrium Dictated by: Ricardo Tripp M.D. on 03/30/2021 at 16:29 Approved by: Ricardo Tripp M.D. on 03/30/2021 at 16:31 Normal [facility] GI PANEL (PCR)on 03-30-2021 Adenovirus F 40/41 Not detected Normal NOT DETECTED [facility] Comment on above: Performed By: #### C BC #### [facility] [address] [place] [address] Shakila Caron Astrovirus Not detected Normal NOT DETECTED [facility] Comment on above: Performed By: #### C BC #### [facility] [address] [place] [address] Shakiladomingo Reardon C. Diff toxin A/B Not detected Normal NOT DETECTED [facility] Comment on above: Performed By: #### C BC #### [facility] [address] [place] [address] Shakila Caron Campylobacter Not detected Normal NOT DETECTED [facility] Comment on above: Performed By: #### C BC #### [facility] [address] [place] [address] Shakila Caron Cryptosporidium Not detected Normal NOT DETECTED [facility] Comment on above: Performed By: #### C BC #### [facility] [address] [place] [address] Shakila Caron Cyclos. Cayetanensis Not detected Normal NOT DETECTED [facility] Comment on above: Performed By: #### C BC #### [facility] [address] [place] [address] Shakila Caron E. Coli O157 Not Applicable Normal Not Applicable [facility] Comment on above: Performed By: #### C BC #### [facility] [address] [place] [address] Shakila Caron E. histolytica Not detected Normal NOT DETECTED [facility] Comment on above: Performed By: #### C BC #### [facility] [address] [place] [address] Shakila Caron EAEC Not detected Normal NOT DETECTED [facility] Comment on above: Performed By: #### C BC #### [facility] [address] [place] [address] Shakila Caron EIEC Not detected Normal NOT DETECTED [facility] Comment on above: Performed By: #### C BC #### [facility] [address] [place] [address] Shakila Caron EPEC Not detected Normal NOT DETECTED [facility] Comment on above: Performed By: #### C BC #### [facility] [address] [place] [address] Shakila Caron ETEC Not detected Normal NOT DETECTED [facility] Comment on above: Performed By: #### C BC #### [facility] [address] [place] [address] Shakila Caron G. Lamblia Not detected Normal NOT DETECTED [facility] Comment on above: Performed By: #### C BC #### [facility] [address] [place] [address] Shakila Caron GIPANEL CONTROLS PASSED Normal [facility] Comment on above: Performed By: #### C BC #### [facility] [address] [place] [address] Shakila Caron GIPNL RISSA HEADER GI PANEL BACTERIA Normal [facility] Comment on above: Performed By: #### C BC #### [facility] [address] [place] [address] Shakila Caron GIPNLHD ECOLI GI PANEL DIARRHEAGEN IC E.COLI / SHIGELLA Normal [facility] Comment on above: Performed By: #### C BC #### [facility] [address] [place] [address] Shakila Caron GIPNLHD INFO SEE BELOW Normal [facility] Comment on above: Result Comment: EAEC - Enteroaggregative E. Coli EPEC- Enteropathogenic E. Coli ETEC- Enterotoxigenic E. Coli lt/st STEC- Shigella-like toxin-producing E. Coli stx1/stx2 EIEC- Shigella/Enteroinvasive E. Coli Performed By: #### C BC #### [facility] [address] [place] [address] Shakila Caron GIPNLHD PARASITES GI PANEL PARASITES Normal [facility] Comment on above: Performed By: #### C BC #### [facility] [address] [place] [address] Shakila Caron GIPNLHD VIRUS GI PANEL VIRUSES Normal [facility] Comment on above: Performed By: #### C BC #### [facility] [address] [place] [address] Shakila Caron Norovirus GI/GII Not detected Normal NOT DETECTED [facility] Comment on above: Performed By: #### C BC #### [facility] [address] [place] [address] Shakila Caron P. Shigelloides Not detected Normal NOT DETECTED [facility] Comment on above: Performed By: #### C BC #### [facility] [address] [place] [address] Shakila Caron Rotavirus A Not detected Normal NOT DETECTED [facility] Comment on above: Performed By: #### C BC #### [facility] [address] [place] [address] Shakila Caron Salmonella Not detected Normal NOT DETECTED [facility] Comment on above: Performed By: #### C BC #### [facility] [address] [place] [address] Shakila Caron Sapovirus Not detected Normal NOT DETECTED [facility] Comment on above: Performed By: #### C BC #### [facility] [address] [place] [address] Shakila Caron STEC Not detected Normal NOT DETECTED [facility] Comment on above: Performed By: #### C BC #### [facility] [address] [place] [address] Shakila Caron Vibrio Not detected Normal NOT DETECTED [facility] Comment on above: Performed By: #### C BC #### [facility] [address] [place] [address] Shakila Caron Vibrio Cholera Not detected Normal NOT DETECTED [facility] Comment on above: Performed By: #### C BC #### [facility] [address] [place], [place] [id number] Shakila Reardon Y. Enterocolitica Not detected Normal NOT DETECTED [facility] Comment on above: Performed By: #### C BC #### [facility] [address] [place], [place] [id number] Shakila Reardon LIPASEon 03-30-2021 Lipase [Catalytic activity/Vol] 419.0 U/L Critically high 23.0-300.0 [facility] Comment on above: Performed By: #### C BC #### [facility] [address] [place], [place] [id number] Shakila Tellezen OCC BLD IMMUNOASSAYon 2020 OCCULT BLOOD Negative Normal NEGATIVE [facility] Comment on above: Performed By: #### C BC #### [facility] [address] [place], [place] [address] Shakila eRardon PROF 14(COMP METB)on 021 Albumin [Mass/Vol] 4.0 g/dL Normal 3.5-5.0 [facility] Comment on above: Performed By: #### C RAIN, CMP #### [facility] [address] [place], [place] [address] Shakila Reardon Albumin/Globulin [Mass ratio] 0.9 {ratio} Normal [facility] Comment on above: Performed By: #### C RAIN, CMP #### [facility] [address] [place], [place] [address] Shakila Caron ALP [Catalytic activity/Vol] 59 U/L Normal 38-126 [facility] Comment on above: Performed By: #### C RAIN, CMP #### [facility] [address] [place], [place] [address] Shakila Caron ALT [Catalytic activity/Vol] 17 U/L Normal 9-52 [facility] Comment on above: Performed By: #### C RAIN, CMP #### [facility] [address] [place], [place] [address] Shakila Caron Anion gap [Moles/Vol] 17.7 mmol/L Normal [facility] Comment on above: Performed By: #### C RAIN, CMP #### [facility] [address] [place] [address] Shakila Caron AST [Catalytic activity/Vol] 31 U/L Normal 14-36 [facility] Comment on above: Performed By: #### C RAIN, CMP #### [facility] [address] [place] [address] Shakila Caron Bilirubin [Mass/Vol] 0.4 mg/dL Normal 0.2-1.3 [facility] Comment on above: Performed By: #### C RAIN, CMP #### [facility] [address] [place] [address] Shakila Caron Calcium [Mass/Vol] 9.3 mg/dL Normal 8.4-10.2 [facility] Comment on above: Performed By: #### C RAIN, CMP #### [facility] [address] [place] [address] Shakila Caron Chloride [Moles/Vol] 105 mmol/L Normal 98-107 [facility] Comment on above: Performed By: #### C RAIN, CMP #### [facility] [address] [place] [address] Shakila Caron CO2 [Moles/Vol] 24.5 mmol/L Normal 22.0-30.0 [facility] Comment on above: Performed By: #### C RAIN, CMP #### [facility] [address] [place] [address] Shakila Caron Creatinine [Mass/Vol] 0.89 mg/dL Normal 0.52-1.04 [facility] Comment on above: Performed By: #### C RAIN, CMP #### [facility] [address] [place], [place] [address] Shakila Caron EGFR-AF DJIBOUTIAN >60 Normal >=60 [facility] Comment on above: Performed By: #### C RAIN, CMP #### [facility] [address] [place], [place] [address] Shakila Caron EGFR-NON AF DJIBOUTIAN >60 Normal >=60 [facility] Comment on above: Performed By: #### C MILTONM, CMP #### [facility] [address] [id number] Shakila Caron Globulin (S) [Mass/Vol] 4.3 g/dL Normal [facility] Comment on above: Performed By: #### C MILTONM, CMP #### [facility] [address] [id number] Shakila Caron Glucose [Mass/Vol] 104 mg/dL Normal 74-106 [facility] Comment on above: Performed By: #### C RAIN, CMP #### [facility] [address] [id number] Shakila Caron Potassium [Moles/Vol] 4.2 mmol/L Normal 3.4-5.0 [facility] Comment on above: Performed By: #### C RAIN, CMP #### [facility] [address] [place], [place] [address] Shakila Caron Protein [Mass/Vol] 8.3 g/dL Critically high 6.1-8.2 [facility] Comment on above: Performed By: #### C RAIN, CMP #### [facility] [address] [place], [place] [address] Shakila Caron Sodium [Moles/Vol] 143 mmol/L Normal 137-145 [facility] Comment on above: Performed By: #### C RAIN, CMP #### [facility] [address] [id number] Shakila Caron Urea nitrogen [Mass/Vol] 17.0 mg/dL Normal 7.0-17.0 [facility] Comment on above: Performed By: #### C RAIN, CMP #### [facility] [address] [place], [place] [address] Shakila Caron Urea nitrogen/Creatinin e [Mass ratio] 19.1 mg/mg Normal [facility] Comment on above: Performed By: #### C RAIN, CMP #### [facility] [address] [id number] Shakila Caron RAPID COVID-19 ANTIGENon EUA Statement SEE BELOW Normal [facility] Comment on above: Result Comment: This test has not been FDA cleared or approved, but has been authorized by the FDA under an Emergency Use Authorization (EUA) for use by authorized laboratories certified under CLIA that meet the requirements to perform moderate or high complexity testing. This test has been authorized only for the detection of proteins from SARS-CoV-2, not for any other viruses or pathogens. The emergency use of this test is authorized for the duration of the declaration that circumstances exist justifying the authorization of emergency use of in vitro diagnostic tests for detection and/or diagnosis of Covid-19 under section 564(b)(1) of the Act, 21 U.S.C. 360bbb-3(b)(1), unless the declaration is terminated or authorization is revoked sooner. Performed By: #### C VDAG #### [facility] [address] [place] [address] Shakiladomingo Reardon SARS-CoV-2 (COVID-19) RNA LISA+probe Ql (Unsp spec) Negative Normal NEGATIVE [facility] Comment on above: Result Comment: Nega tive results are presumptive. They do not preclude infection and should not be used as the sole basis for treatment decisions. Additional confirmatory testing by a molecular method should be considered. Performed By: #### C VDAG #### [facility] [address] [place] [address] Shakiladomingo Reardon UA RANDOM W/MICROSCOPICon BACTERIA NONE SEEN Normal NONE SEEN [facility] Comment on above: Performed By: #### U AMIC #### [facility] [address] [place] [address] Shakiladomingo Tellezen Bilirubin Ql (U) Negative Normal NEGATIVE [facility] Comment on above: Performed By: #### U AMIC #### [facility] [address] [place] [address] Shakiladomingo Tellezen CAST NONE SEEN Normal NONE SEEN [facility] Comment on above: Performed By: #### U AMIC #### [facility] [address] [place] [address] Shakila Caron Clarity (U) CLEAR Normal CLEAR [facility] Comment on above: Performed By: #### U AMIC #### [facility] [address] [id number] Shakila Caron Color (U) LT. YELLOW Normal YELLOW [facility] Comment on above: Performed By: #### U AMIC #### [facility] [address] [id number] Shakila Caron Crystals LM Nom (Urine sed) NONE SEEN Normal NONE SEEN [facility] Comment on above: Performed By: #### U AMIC #### [facility] [address] [place] [address] Shakila Caron Epithelial cells LM Ql (Urine sed) RARE Normal NONE SEEN /RARE [facility] Comment on above: Performed By: #### U AMIC #### [facility] [address] [place] [address] Shakila Caron Glucose Ql (U) Negative Normal NEGATIVE [facility] Comment on above: Performed By: #### U AMIC #### [facility] [address] [place] [address] Shakila Caron Hemoglobin Ql (U) Negative Normal NEGATIVE [facility] Comment on above: Performed By: #### U AMIC #### [facility] [address] [place] [address] Shakila Caron Ketones Ql (U) Negative Normal NEGATIVE [facility] Comment on above: Performed By: #### U AMIC #### [facility] [address] [place] [address] Shakila Caron LEUKOCYTES Negative Normal NEGATIVE [facility] Comment on above: Performed By: #### U AMIC #### [facility] [address] [place] [address] Shakila Caron MUCOUS NONE SEEN Normal NONE SEEN [facility] Comment on above: Performed By: #### U AMIC #### [facility] [address] [place] [address] Shakila Caron Nitrite Ql (U) Negative Normal NEGATIVE [facility] Comment on above: Performed By: #### U AMIC #### [facility] [address] [place] [address] Shakila Caron pH (U) 7.0 [pH] Normal 5-9 [facility] Comment on above: Performed By: #### U AMIC #### [facility] [address] [place], [place] [address] Shakila Reardon RBC NONE SEEN Abnormal 0-2 [facility] Comment on above: Performed By: #### U AMIC #### [facility] [address] [place], [place] [address] Shakila Reardon SPEC GRAVITY <=1.005 Abnormal 1.005-<=1.025 [facility] Comment on above: Performed By: #### U AMIC #### [facility] [address] [place], [place] [address] Shakila Reardon UA PROTEIN Negative Normal NEGATIVE/ TRACE [facility] Comment on above: Performed By: #### U AMIC #### [facility] [address], [place] [address] Shakila Reardon Urobilinogen Qn (U) 0.2 {Inocencio'U}/dL Normal 0.2 - 1.0 [facility] Comment on above: Performed By: #### U AMIC #### [facility] [address] [place], [place] [address] Shakila Reardon WBC NONE SEEN Normal NONE SEEN [facility] Comment on above: Performed By: #### U AMIC #### [facility] [address] [place], [place] [address] Shakila Reardon XR CHEST 1 Von 03-30-2021 XR CHEST 1 V EXAMINATION: XR CHES T 1 V HISTORY: CHEST PAIN, UNSPECIFIED COMPARISON: No relevant comparison available. TECHNIQUE: FINDINGS: LUNGS: No significant pulmonary parenchymal abnormalities. VASCULATURE: No increased pulmonary vasculature. PLEURA: No pneumothorax, effusion, or pleural thickening. CARDIAC: No cardiomegaly or cardiac silhouette abnormality. MEDIASTINUM: No visible mass or adenopathy. Aortic atherosclerosis BONES: No fracture or visible bone lesion. Right shoulder arthroplasty OTHER: EKG wires IMPRESSION: No acute disease. Electronically authenticated by: TONJA MADSION Date: 2021-03-30 07:02 Normal [facility] CA 19-9on 12-21-2020 CA 19-9 26 U/mL Normal 0-35 [facility] Comment on above: Result Comment: [employer] Electrochemiluminescence Immunoassay (ECLIA) . Values obtained with different assay methods or kits cannot be used interchangeably. Results cannot be interpreted as absolute evidence of the presence or absence of malignant disease. Performed By: #### C BC #### [facility] [address] [address] Shakila Reardon US Dominga 12-19-2020 US ABD EXAMINATION: US ABD HISTORY: Abdominal pain , chronic COMPARISON: No relevant comparison available. TECHNIQUE: High resolution sonographic examination of the abdomen was performed. FINDINGS: LIVER: Normal. Normal size and echotexture. No significant masses. Normal waveform and flow within the main portal vein, 42 cm/s. BILIARY: Cholecystectomy. Normal appearance and caliber of the common bile duct, 6 mm. PANCREAS: 9 mm hypoechoic structure between the kidney and spleen shown on the prior CT study to represent a pancreatic cyst.. No visible mass, abnormal atrophy, or ductal dilatation. SPLEEN: Normal. Normal size and echotexture. KIDNEYS: Normal. No mass or obstruction. AORTA/VASCULAR: Normal. No aneurysm. Duplex Doppler demonstrates normal waveform and flow, 81/13 cm/s. Patent inferior vena cava. OTHER: Negative. IMPRESSION: 1. No acute or suspicious findings to account for the patient's symptoms. 2. Prior cholecystectomy. 3. Incidental small pancreatic pseudocyst projecting from the tail of the pancreas. Electronically authenticated by: ARMAND BOGGS Date: 2020-12-19 09:09 Normal [facility] US PELVISon 12-19-2020 US PELVIS EXAMINATION: US PELV IS HISTORY: Abdominal pain COMPARISON: No relevant comparison available. TECHNIQUE: Transabdominal and transvaginal sonographic examination. FINDINGS: Prior hysterectomy. Suspect bilateral oophorectomy. Neither ovary could be identified. No abnormal or suspicious adnexal findings. CUL-DE-SAC: Unremarkable. No significant free fluid. BLADDER: Unremarkable. OTHER: None. IMPRESSION: 1. No abnormal or suspicious findings. Electronically authenticated by: ARMAND BOGGS Date: 2020-12-19 10:07 Normal [facility] XR LSPINE MIN 4 VIEWSon 10-20 XR LSPINE MIN 4 VIEWS EXAMINATION: XR LSPINE MIN 4 VIEWS HISTORY: Pain in right hip joint ; chronic lumbar pain radiating to hips COMPARISON: No relevant comparison available. FINDINGS: BONES: Mild degenerative facet arthropathy L4-5, L5-S1. No fracture or spondylolisthesis. DISC SPACES: Moderate narrowing L5-S1. PARASPINOUS: Negative. No paraspinous abnormality is seen. OTHER: Negative. IMPRESSION: 1. L5-S1 moderate degenerative disc disease and facet arthropathy. Electronically authenticated by: ARMAND BOGGS Date: 2020-11-03 15:41 Normal [facility] Social History Date Type Detail Facility Sex Assigned At [facility] Other Vital Signs Date Time Vital Sign Value Performing Clinician Masha renner 08-07-2021 17:00-0400 Body height 147.32 cm Tonja Fink Other [facility] Other 08-07-2021 17:00-0400 Body mass index (BMI) [Ratio] 25.91 kg/m2 Tonja Fink Other [facility] Other 08-07-2021 17:00-0400 Body weight 56.25 kg Tonja Fink Other [facility] Other Evaluation note 08-07-2021 Note Date & Type Note Facility 08-07-2021 Evaluation note Encounter Date Diagnosis Assessment Notes Jul, RLQ abdominal pain (ICD-10 - R10.31) Jul, Irritable bowel syndrome with diarrhea (ICD-10 - K58.0) Jul, Personal history of colonic polyps (ICD-10 - Z86.010) Jul, Other START TRIAL OF COLESTIPOL 1 GRAM 2 TABS DAILY IF NOT IMPROVED MAY CONSIDER REPEATING COLONOSCOPY NOW F/U HERE 6 WEEKS [facility] Other Clinical Note 07-10-2021 Note Date & Type Note Facility 07-10-2021 Note PROCEDURE: XR HIP RT 2 3V W PELVIS COMPARISON: None. HISTORY: Pain in right hip joint FINDINGS: BONES:No fracture, acute abnormality, or significant arthropathy. SOFT TISSUES:Negative. No visible soft tissue swelling. EFFUSION:None visible. OTHER: Negative. IMPRESSION: No acute abnormality Electronically authenticated by: TONJA MADISON Date: 2021-07-10 13:15 [facility] Clinical Note 06-14-2021 Note Date & Type Note Facility 06-14-2021 Note Chief Complaint referral for breast lump HPI Staff 70 year old female presents on consultation from Dy. May for right breast lump. Present for 3 months. Prescribed Cipro 500mg BID and Doxycycline 100mg BID; completed roughly half the prescription before changing to Keflex and Clindamycin due to GI upset. History of Present Illness 70 yo female with h/o fibromyalgia, referred by Dr May for infection of right medial breast; patient reports small lump in skin at that site in past, nontender, tried to squeeze area, then developed increased swelling and pain, seen by Dr May, tried to I & D area but did not get anything out; patient treated with Cipro and Doxycycline, had GI upset, so switched to Keflex and Clindamycin; still with swelling and pain in area, no drainage, no fever; no h/o similar problems in past; no asa or NSAID use. Review of Systems PHQ Score Initial Depression Screen Score: 0 ROS - Provider Constitutional: no fever, no sweats, no weight loss. Eyes: no glasses, no blurred vision, no visual loss. ENMT: no dentures, no hoarseness, no swallowing difficulties, no hearing loss, no ear infection(s), no nose bleeds. Cardiovascular: normal blood pressure, no chest pain, regular heartbeat, no heart murmur. Respiratory: no shortness of breath, no cough, no asthma, no wheezing. Gastrointestinal: no nausea, no vomiting, no diarrhea, no constipation, no blood in stool, no change in bowel habits, no abdominal pain, no hepatitis. Genitourinary: no kidney stones, no urine infection, no dysuria. Musculoskeletal: yes pain, no weakness. Skin: no changing moles, no rash, yes skin lumps. Neurologic: no seizures, no epilepsy, no headache. Psychiatric: no emotional or psychiatric problem. Heme/Lymph: no bleeding problems, no anemia, no blood clots, no transfusions. Allergy/Immunologic: no swollen lymph nodes/glands, no IV drug abuse. Other: Additional ROS info: Except as noted in the above Review of Systems and in the History of Present Illness, all other systems have been reviewed and are negative or noncontributory. Physical Exam Vitals & Measurements T: 36.7 ?C (Temporal Artery) HR: 76(Peripheral) RR: 16 BP: 120/66 HT: 154.9 cm HT: 154.94 cm WT: 56.3 kg WT: 56.3 kg BMI: 23.45 HEENT: normal conjunctiva, sclera clear, no scleral icterus, EOM intact, PERRLA. oral mucosa moist without lesions Neck: trachea midline , no mass, symmetric, no thyromegaly or nodules. no adenopathy Respiratory: lungs CTA, respirations non labored. Cardiovascular: regular rate and rhythm, no murmur, , no pedal edema or varicosities. Chest (Breasts): no discharge, right medial beast with 2.5 cm abscess, no drainage, fluctuant with superficial areas of skin necrosis, tender; no surrounding cellulitis. Lymphatic: no cervical adenopathy, Musculoskeletal: normalgait, digits and nails without infection, nodes, cyanosis, clubbing. Skin: no rashes, no lesions, no ulcers, no subcutaneous nodules, induration. Psychiatric/Neuro: oriented to time, place, person, judgement normal, affect appropriate for age, insight intact, no focal deficits. Tests: review of old records completed, Discussed surgical options, risks, and possible complications with patient. Procedure patient placed in supine position, abscess prepped and draped, anesthetized with 1 % lidocaine with epinephrine; fluctuant area incised with # 11 blade, 1.5 cm incision, thick purulent material expressed; sent for culture; sterile gauze dressing applied; ebl < 1 ml; patient tolerated well. Assessment/Plan 1. Infected sebaceous cyst (L72.3: Sebaceous cyst) drained under local anesthesia, culture obtained; area completely decompressed; keep clean and dry, wash with soap and water and cover with gauze dressing; follow up in 1 week, call sooner if problems/questions. Follow-up No qualifying data available Problem List/Past Medical History Ongoing BMI 23.0-23.9, adult Depression Fibromyalgia Furuncle of breast Hypercholesterolemia Infected sebaceous cyst Lumbar disc disease Historical No qualifying data Procedure/Surgical History Colonoscopy, Partial resection of colon, Vaginal hysterectomy. Medications cephalexin 500 mg Cap citalopram 10 mg Tab clindamycin 300 mg oral cap Allergies codeine (Nausea and vomiting) Social History Alcohol - Denies Alcohol Use, 06/12/2021 Substance Abuse - Denies Substance Abuse, 06/12/2021 Tobacco Former smoker, quit more than 30 days ago Tobacco Use:. Never Smokeless Tobacco Use:. Cigarettes, 10 per day. Started age 18.0 Years. Stopped age 29 Years., 06/12/2021 Family History Cardiac arrest: Father. Hypertension: Brother. Primary malignant neoplasm of colon: Mother. [facility] [place] Comment on above: Result Comment: Elec tronically Signed By: RODDY WILSON, Kasey Burton\Date and Time Signed: 06/14/21 10:22 EDT Clinical Note 11-03-2020 Note Date & Type Note Facility 11-03-2020 Note PROCEDURE: XR HIPS B IL 5V W PELVIS HISTORY: Pain in right hip joint ; chronic lumbar pain radiating to bilateral hips COMPARISON: None. FINDINGS: BONES:No fracture, acute abnormality, or significant arthropathy. SOFT TISSUES:No visible soft tissue swelling. EFFUSION:None visible. OTHER: Bowel sutures within the right abdomen. IMPRESSION: 1. Minimal degenerative changes of the hip joints. No suspicious bone abnormality. Electronically authenticated by: ARMAND BOGGS Date: 2020-11-03 15:33 [facility] Evaluation note Note Date & Type Note Facility Evaluation note No Information [facility] Other History general Narrative - Reported Note Date & Type Note Facility History general Narrative - Reported Type Medical History anxiety Medical History colon polyps Surgical History appendectomy Surgical History colon resection Surgical History CHOLECYSTECTOMY Hospitalization History SEE ABOVE [facility] Other Summary Purpose Family History No Family History Records FoundNo Family History Records FoundNo Family History Records Found Advance Directives No Advanced Directives Records FoundNo Advanced Directives Records FoundNo Advanced Directives Records Found Additional Source Comments INFORMATION SOURCE (unrecogn ized section and content) DATE CREATED AUTHOR 04/09/2021 [facility] DATE CREATED AUTHOR AUTHOR'S ORGANIZ ATION 06/21/2021 [facility] DATE CREATED AUTHOR AUTHOR'S ORGANIZ ATION 08/11/2021 [facility] REASON FOR VISIT (unrecogniz ed section and content) PATIENT HERE AT THE REQUEST OF DR MAY FOR DIARRHEA, HER DIARRHEA HAS BEEN CHRONIC FOR SEVERAL YEARS UP TO 4 TIMES DAILY, SHE DENIES BLOOD IN STOOLNo Information FOR RECORDS PERTAINING TO PATIENTS WHO ARE OR HAVE BEEN ENROLLED IN A CHEMICAL DEPENDENCY/SUBSTANCEABUSE PROGRAM, SOME INFORMATION MAY BE OMITTED. This clinical summary was aggregated from multiple sources. Caution should be exercised in using it in the provision of clinical care. This summary normalizes information from multiple sources, and as a consequence, information in this document may materially change the coding, format and clinical context of patient data. In addition, data may be omitted in some cases. CLINICAL DECISIONS SHOULD BE BASED ON THE PRIMARY CLINICAL RECORDS. [facility]. provides no warranty or guarantee of the accuracy or completeness of information in this document.
--- NOTE | 2024-03-17 12:33 | MR_ITS ---
The [address] [address] Patient Name: DENI WORTHY MRN: [id number] date: 1950 Sex: F Assigned Patient Location: MRI Current Patient Location: MRI Accession/Order Number: [id number] Exam Date: 03/17/2024 12:40 Report Date: 03/17/2024 15:12 At the request of: TOSHIA MAHARAJ Procedure: MR head/brain wo con EXAM: MR head/brain wo con HISTORY: Memory loss R41.3 COMPARISON: None. TECHNIQUE: MRI of the brain was performed without contrast. FINDINGS: There is no restricted diffusion to suggest acute infarct. There is no midline shift, mass effect, or abnormal extraaxial fluid collections. The cortical sulci are mildly enlarged, consistent with mild age appropriate cerebral atrophy. There is no hydrocephalus. There are a few nonspecific scattered foci of T2/FLAIR signal abnormality in the subcortical and periventricular white matter, likely reflect chronic microvascular ischemic changes. The major intracranial flow voids are visualized. The cerebellar tonsils are normal in position. The orbits are unremarkable. The paranasal sinuses show no air-fluid level. The mastoid air cells are clear. The calvarium and extracranial soft tissues are unremarkable. MR/MR head/brain wo con IMPRESSION: No acute intracranial abnormality. Mild chronic microvascular ischemia and involutional changes. Electronically authenticated by: CHARLIE KRISHNA Date: 03/17/2024 15:12
== END 2024-03-17 12:28 | disposition home or self-care (01) ==
LOC: MRI 12:27
PROVIDERS: PCP Family Medicine; Visit Provider Family Medicine
DX: R41.3 Other amnesia (principal); I67.82 Cerebral ischemia
CPT/HCPCS: 70551

== ENCOUNTER 2024-05-31 09:33 | Outpatient (OUT) | payer MEDICARE, SELFPAY ==
--- OUTSIDE RECORDS SUMMARY | 2024-05-31 09:59 | XMS_ITS | CCD ---
Author Organization [facility]iniSy[facility] Care Team Providers Care Smoke Jumper Name Role Phone LALO, DR POPE Attending Unavailable HOY, DR POPE [...] Consulting Unavailable PAY, DR WRIGHT Consulting Unavailable VioletKasey Consulting Unavailable HOY, DR POPE Attending Unavailable HOY, DR POPE Primary Care Unavailable HOY, DR POPE Admitting Unavailable HOY, DR POPE Primary Care Unavailable REQUEST, DR CHATTERJEE LISTED Consulting Unavaila ble REQUEST, DR CHATTERJEE LISTED Attending Unavaila ble REQUEST, DR CHATTERJEE LISTED Admitting Unavaila ble HOY, DR POPE Primary Care Unavailable REQUEST, DR CHATTERJEE LISTED Consulting Unavaila ble REQUEST, NONE LISTED Attending Unavaila ble REQUEST, DR CHATTERJEE LISTED Admitting Unavaila brandt MAY, DR POPE Consulting Unavailable JANAEY, DR POPE Attending Unavailable HOY, DR POPE Admitting Unavailable JANAEY, DR POPE Primary Care Unavailable JANAEY, DR POPE Consulting Unavailable JANAEY, DR POPE Attending Unavailable HOY, DR POPE Admitting Unavailable HOY, DR POPE Primary Care Unavailable WEST, DR TONJA Gray Consulting Unavailable LALO, DR POPE Primary Care Unavailable RAMBASEKLIZ Admitting Unavailable RAMBASEK, ILZ Consulting Unavailable RAMBASEK, LIZ Attending Unavailable Tonja Fink Unavailable Allergies Allergy Classification Reported Allergen(s) Allergy Type Date of Onset Reaction(s) Facility (2 sources) Codeine Drug Allergy [facility] Repository (2 sources) house dust allergenic extract Drug Allergy [facility] Repository (2 sources) Pelican Containing Products Drug allergy (disorder) [facility] Repository (2 sources) pine oil (Pinus sylvestris) Drug allergy (disorder) [facility] Repository (2 sources) Codeine Drug Allergy vomiting [employer]ify Other (2 sources) multiple food allergies Propensity to adverse reactions Unknown [employer] [facility] Immy Other Medications Current Medications Medication Drug Class(es) Dates [...] 1 day(s) PLEASE CHECK ALLERGIES Apr, Not-Taking Problems Active Problems Problem Classification Problem Date [...] 03-30-2021 Episodic Other aftercare (1 source) Other emt intermediate (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; Translations: [OTH COMMERCIAL TITLE EXAMINER CURRENT DRUG THERAPY] Onset: 04-04-2021 Episodic Other [...] URINE Culture Observations : No growth Normal [facility] Comment on above: Performed By: #### C RAIN, CMP #### [facility] [address] [place] [address] Shakila Reardon UA (CLEAN/CATCH) MICROSCOPIC IF INDICATEon 08-01-2021 Bilirubin Ql (U) Negative Normal NEGATIVE [facility] Comment on above: Performed By: #### U ARMICR #### [facility] [address] [place] [address] Dr. Jarett Chou Clarity (U) CLEAR Normal CLEAR [facility] Comment on above: Performed By: #### U ARMICR #### [facility] [address] [place] [address] Dr. Jarett Chou Color (U) YELLOW Normal YELLOW [facility] Comment on above: Performed By: #### U ARMICR #### [facility] [address] [place] [address] Dr. Jarett Chou Glucose Ql (U) Negative Normal NEGATIVE [facility] Comment on above: Performed By: #### U ARMICR #### [facility] [address] [place] [address] Dr. Jarett Chou Hemoglobin Ql (U) Negative Normal NEGATIVE [facility] Comment on above: Performed By: #### U ARMICR #### [facility] [address] [place] [address] Dr. Jarett Chou Ketones Ql (U) Negative Normal NEGATIVE [facility] Comment on above: Performed By: #### U ARMICR #### [facility] [address] [address] [address] Jarett hCou LEUKOCYTES Negative Normal NEGATIVE [facility] Comment on above: Performed By: #### U ARMICR #### [facility] [address] [address] [address] Jarett Chou Nitrite Ql (U) Negative Normal NEGATIVE [facility] Comment on above: Performed By: #### U ARMICR #### [facility] [address] [address] [address] Jarett Chou pH (U) 5.5 [pH] Normal 5-9 [facility] Comment on above: Performed By: #### U ARMICR #### [facility] [address] [place] [address] Dr. Jarett Chou SPEC GRAVITY 1.025 Normal 1.005-<=1.025 [facility] Comment on above: Performed By: #### U ARMICR #### [facility] [address] [place] [address] Dr. Jarett Chou UA PROTEIN Negative Normal NEGATIVE/ TRACE [facility] Comment on above: Performed By: #### U ARMICR #### [facility] [address] [place] [address] Dr. Jarett Chou UR MICRO IND NOT INDICATED Normal [facility] Comment on above: Performed By: #### U ARMICR #### [facility] [address] [place] [address] Dr. Jarett Chou Urobilinogen Qn (U) 0.2 {Inocencio'U}/dL Normal 0.2 - 1.0 [facility] Comment on above: Performed By: #### U ARMICR #### [facility] [address] [place] [address] Dr. Jarett Chou Provider [facility] Provider Letter [facility] June 20, 2021 Toshia Lalo, [address] [facility] [place] [address] [place] [address] Re: MARCIA WORTHY Date of : 1950 [...] persist. Sincerely, Kasey Uribe MD General Surgery [facility] Provider Letter [facility] June 20, 2021 Toshia May, [address] [facility] [place] [address] [place] [address] Re: MARCIA WORTHY Date of : 1950 Thank you for your referral of Marcia Worthy who was seen on consultation on June 19, 2021, for sebaceous cyst right breast. I have enclosed my consultation notes for your review. I will be happy to follow Marcia should her symptoms persist. Sincerely, Kasey Uribe MD General Surgery [facility] Ambulatory Clinical Summaryo n 06-19-2021 Ambulatory Clinical Summary {[id number]}CD:61 4368 Normal [facility] General Surgery Office/Clini c Noteon 06-19-2021 General [...] Primary malignant neoplasm of colon: Mother. Normal [facility] Comment on above: Result Comment: Elec tronically Signed By: RODDY WILSON, Kasey Burton\Date and Time Signed: 06/19/21 14:48 EDT Lab Reportson 06-19-2021 Lab Reports [id number]:127 Normal [facility] CULTURE WOUNDon 06-16-2021 CULTURE WOUND Isolate 1 [...] Trimethoprim/Sulfamethoxazo le >=[address] F Normal [facility] Comment on above: Performed By: #### C [employer] #### [facility] [address] [place] [address] Shakila Reardon Ambulatory Clinical Summaryo n 06-12-2021 Ambulatory Clinical Summary {[id number]}CD:61 4368 Normal [facility] XR pre/post mri xrayon 04-05 XR pre/post mri xray [facility] [place] [address] MRI Report Signed Patient: Marcia Worthy MR#: [id number] : 1950 Acct:[id number] Age/Sex: 70 / F ADM Date: 04/05/21 Loc: [facility] Room: Type: [facility] Attending Dr: Toshia May MD Ordering Provider: Toshia May MD Date of Service: 04/05/21 MR/MR lumbar spine wo con: m32.89, m51.9, r10.31 ([id number]) XR/XR pre/post mri xray: N32.89, M51.9 Copies [...] Thomas Morton M.D.04/05/2021 3:05 PM Dictation Location: [place] [address] Transcribed By: [facility] 04/05/21 1505 Dictated By: Thomas Morton DO 04/05/21 1459 Signed By: 04/05/21 1505 [facility] AMYLASEon 03-31-2021 Amylase [Catalytic activity/Vol] 75 U/L Normal 31-110 [facility] Comment on above: Performed By: #### C BC #### [facility] [address] [place], [place] [address] Shakila Reardon CBC AUTO DIFFon 03-31-2021 BASO # 0.0 103/ul Normal 0.0-0.1 [facility] Comment on above: Performed By: #### C BC #### [facility] [address] [place], [place] [address] Shakila Reardon Basophils/100 WBC (Bld) 0.1 % Critically low 0.2-2.0 [facility] Comment on above: Performed By: #### C BC #### [facility] [address] [place] [address] Shakila Caron EO # 0.0 103/ul Normal 0.0-0.7 [facility] Comment on above: Performed By: #### C BC #### [facility] [address] [place] [address] Shakila Caron Eosinophils/100 WBC (Bld) 0.0 % Critically low 0.9-7.0 [facility] Comment on above: Performed By: #### C BC #### [facility] [address] [place] [address] Shakila Caron Erythrocyte distribution width (RBC) [Ratio] 12.8 % Normal 11.0-15.0 [facility] Comment on above: Performed By: #### C BC #### [facility] [address] [place] [address] Shakila Caron Hematocrit (Bld) [Volume fraction] 36.8 % Normal 36.0-48.0 [facility] Comment on above: Performed By: #### C BC #### [facility] [address] [place] [address] Shakila Caron Hemoglobin (Bld) [Mass/Vol] 12.2 g/dL Normal 12.0-16.[address] [facility] Comment on above: Performed By: #### C BC #### [facility] [address] [place] [address] Shakila Caron IG # 0.05 10e3/ul Critically high 0.00-0.03 [facility] Comment on above: Performed By: #### C BC #### [facility] [address] [place] [address] Shakila Caron IG % 0.4 % Normal 0.0-0.5 [facility] Comment on above: Performed By: #### C BC #### [facility] [address] [place] [address] Shakila Caron LYMPH # 1.5 103/ul Normal 1.2-3.8 [facility] Comment on above: Performed By: #### C BC #### [facility] [address] [place], [place] [address] Shakila Caron Lymphocytes/100 WBC (Bld) 11.8 % Critically low 20.5-60.0 [facility] Comment on above: Performed By: #### C BC #### [facility] [address] [place], [place] [address] Shakila Caron MANUAL DIFF REQ NO Normal [facility] Comment on above: Performed By: #### C BC #### [facility] [address] [place], [place] [address] Shakiladomingo Reardon MCH (RBC) [Entitic mass] 31.7 pg Normal 26.7-34.[address] [facility] Comment on above: Performed By: #### C BC #### [facility] [address] [place] [address] Shakiladomingo Reardon MCHC (RBC) [Mass/Vol] 33.2 g/dL Normal 29.9-35.[address] [facility] Comment on above: Performed By: #### C BC #### [facility] [address] [place], [place] [address] Shakiladomingo Reardon MCV (RBC) [Entitic vol] 95.6 fL Normal 81.0-99.0 [facility] Comment on above: Performed By: #### C BC #### [facility] [address] [place], [place] [address] Shakila Caron MONO # 0.4 103/ul Normal 0.3-0.[address] [facility] Comment on above: Performed By: #### C BC #### [facility] [address] [place], [place] [address] Shakila Caron Monocytes/100 WBC (Bld) 3.0 % Normal 1.7-12.[address] [facility] Comment on above: Performed By: #### C BC #### [facility] [address] [place], [place] [address] Shakila Caron NEUT # 11.0 103/ul Critically high 1.4-6.[address] [facility] Comment on above: Performed By: #### C BC #### [facility] [address] [place], [place] [address] Shakila Reardon Neutrophils/100 WBC (Bld) 84.7 % Critically high 43.0-75.0 [facility] Comment on above: Performed By: #### C BC #### [facility] [address] [place] [address] Shakila Reardon Platelet mean volume (Bld) [Entitic vol] 9.0 fL Critically low 9.5-13.5 [facility] Comment on above: Performed By: #### C BC #### [facility] [address] [place] [address] Shakila Tellezen PLT 223 103/ul Normal 150-[address] [facility] Comment on above: Performed By: #### C BC #### [facility] [address] [place] [address] Shakila Reardon RBC 3.85 106/ul Critically low 4.20-5.40 [facility] Comment on above: Performed By: #### C BC #### [facility] [address] [place] [address] Shakila Reardon WBC 12.9 103/ul Critically high 4.0-11.0 [facility] Comment on above: Performed By: #### C BC #### [facility] [address] [place] [address] Shakila Reardon LIPASEon 03-31-2021 Lipase [Catalytic activity/Vol] 205.0 U/L Normal 23.0-300.0 [facility] Comment on above: Performed By: #### C BC #### [facility] [address] [place] [address] Shakila Reardon PROF 14(COMP METB)on 021 Albumin [Mass/Vol] 3.4 g/dL Critically low 3.5-5.0 [facility] Comment on above: Performed By: #### C BC #### [facility] [address] [place] [address] Shakila Reardon Albumin/Globulin [Mass ratio] 0.8 {ratio} Normal [facility] Comment on above: Performed By: #### C BC #### [facility] [address] [place], [place] [address] Shakila Caron ALP [Catalytic activity/Vol] 54 U/L Normal 38-[address] [facility] Comment on above: Performed By: #### C BC #### [facility] [address] [place], [place] [address] Shakila Caron ALT [Catalytic activity/Vol] 29 U/L Normal 9-[address] [facility] Comment on above: Performed By: #### C BC #### [facility] [address] [place], [place] [address] Shakila Caron Anion gap [Moles/Vol] 15.2 mmol/L Normal [facility] Comment on above: Performed By: #### C BC #### [facility] [address] [place] [address] Shakila Caron AST [Catalytic activity/Vol] 31 U/L Normal 14-[address] [facility] Comment on above: Performed By: #### C BC #### [facility] [address] [place] [address] Shakila Caron Bilirubin [Mass/Vol] 0.3 mg/dL Normal 0.2-1.[address] [facility] Comment on above: Performed By: #### C BC #### [facility] [address] [place], [place] [address] Shakila Caron Calcium [Mass/Vol] 9.2 mg/dL Normal 8.4-10.[address] [facility] Comment on above: Performed By: #### C BC #### [facility] [address] [place], [place] [address] Shakila Caron Chloride [Moles/Vol] 106 mmol/L Normal 98-[address] [facility] Comment on above: Performed By: #### C BC #### [facility] [address] [place], [place] [address] Shakila Caron CO2 [Moles/Vol] 23.4 mmol/L Normal 22.0-30.[address] [facility] Comment on above: Performed By: #### C BC #### [facility] [address] [place], [place] [address] Shakila Caron Creatinine [Mass/Vol] 0.89 mg/dL Normal 0.52-1.04 [facility] Comment on above: Performed By: #### C BC #### [facility] [address] [place], [place] [address] Shakila Caron EGFR-AF CROATIAN >60 Normal >=60 [facility] Comment on above: Performed By: #### C BC #### [facility] [address] [place], [place] [address] Shakila Caron EGFR-NON AF CROATIAN >60 Normal >=60 [facility] Comment on above: Performed By: #### C BC #### [facility] [address] [place], [place] [address] Shakila Caron Globulin (S) [Mass/Vol] 4.1 g/dL Normal [facility] Comment on above: Performed By: #### C BC #### [facility] [address] [place], [place] [address] Shakila Caron Glucose [Mass/Vol] 145 mg/dL Critically high 74-106 [facility] Comment on above: Performed By: #### C BC #### [facility] [address] [place] [address] Shakila Caron Potassium [Moles/Vol] 4.6 mmol/L Normal 3.4-5.0 [facility] Comment on above: Performed By: #### C BC #### [facility] [address] [place], [place] [address] Shakila Caorn Protein [Mass/Vol] 7.5 g/dL Normal 6.1-8.2 [facility] Comment on above: Performed By: #### C BC #### [facility] [address] [place] [address] Shakila Caron Sodium [Moles/Vol] 140 mmol/L Normal 137-145 [facility] Comment on above: Performed By: #### C BC #### [facility] [address] [place] [address] Shakila Caron Urea nitrogen [Mass/Vol] 31.0 mg/dL Critically high 7.0-17.0 [facility] Comment on above: Performed By: #### C BC #### [facility] [address] [place] [address] Shakila Reardon Urea nitrogen/Creatinin e [Mass ratio] 34.8 mg/mg Normal [facility] Comment on above: Performed By: #### C BC #### [facility] [address] [place] [address] Shakila Reardon C. DIFF PCRon 03-30-2021 C. DIFFICILE PCR Negative Normal NEGATIVE [facility] Comment on above: Performed By: #### C DIFPOC #### [facility] [address] [place] [address] Shakila Tellezen CARDIAC MIKE 3-6on 1 CK [Catalytic activity/Vol] 53 U/L Normal 30-[address] [facility] Comment on above: Performed By: #### C RAIN, CMP #### [facility] [address] [place], [place] [address] Shakila Caron CK.MB [Mass/Vol] 0.85 ng/mL Normal <=2.[address] [facility] Comment on above: Performed By: #### C MADM, CMP #### [facility] [address] [place], [place] [address] Shakila Reardon HSTROP 7.9 pg/mL Normal 4.0-35.[address] [facility] Comment on above: Result Comment: CUT- OFF POINTS HAVE BEEN ESTABLISHED BASED ON THE FOURTH UNIVERSAL DEFINITIONS OF MYOCARDIAL INFARCTION. THE UPPER REFERENCE LIMIT (URL) OF TROPONIN, DEFINED THE 99TH PERCENTILE OF cTnI DISTRIBUTION IN A REFERENCE POPULATION, HAS BEEN CONFIRMED THE DECISION THRESHOLD FOR [place] DIAGNOSIS. Performed By: #### C MADM, CMP #### [facility] [address] [place] [address] Shakila Caron CK [Catalytic activity/Vol] 58 U/L Normal 30-[address] [facility] Comment on above: Performed By: #### C MREP #### [facility] [address] [place] [address] Shakila Caron CK.MB [Mass/Vol] 0.84 ng/mL Normal <=2.[address] [facility] Comment on above: Performed By: #### C MREP #### [facility] [address] [place] [address] Shakila Reardon HSTROP 5.0 pg/mL Normal 4.0-35.[address] [facility] Comment on above: Result Comment: CUT- OFF POINTS HAVE BEEN ESTABLISHED BASED ON THE FOURTH UNIVERSAL DEFINITIONS OF MYOCARDIAL INFARCTION. THE UPPER REFERENCE LIMIT (URL) OF TROPONIN, DEFINED THE 99TH PERCENTILE OF cTnI DISTRIBUTION IN A REFERENCE POPULATION, HAS BEEN CONFIRMED THE DECISION THRESHOLD FOR [place] DIAGNOSIS. Performed By: #### C MREP #### [facility] [address] [place] [address] Shakila Reardon CARDIAC MIKE ADMITon 021 CK [Catalytic activity/Vol] 53 U/L Normal 30-[address] [facility] Comment on above: Performed By: #### C RAIN, CMP #### [facility] [address] [place] [address] Shakila Reardon CK.MB [Mass/Vol] 0.62 ng/mL Normal <=2.[address] [facility] Comment on above: Performed By: #### C RAIN, CMP #### [facility] [address] [place] [address] Shakila Reardon HSTROP <4.0 Normal 4.0-35.[address] [facility] Comment on above: Result Comment: CUT- OFF POINTS HAVE BEEN ESTABLISHED BASED ON THE FOURTH UNIVERSAL DEFINITIONS OF MYOCARDIAL INFARCTION. THE UPPER REFERENCE LIMIT (URL) OF TROPONIN, DEFINED THE 99TH PERCENTILE OF cTnI DISTRIBUTION IN A REFERENCE POPULATION, HAS BEEN CONFIRMED THE DECISION THRESHOLD FOR [place] DIAGNOSIS. Performed By: #### C RAIN, CMP #### [facility] [address] [place] [address] Shakila Reardon JESSICA 28.0 ng/mL Normal <=61.[address] [facility] Comment on above: Performed By: #### C RAIN, CMP #### [facility] [address] [place] [address] Shakila Reardon CBC AUTO DIFFon 03-30-2021 BASO # 0.1 103/ul Normal 0.0-0.[address] [facility] Comment on above: Performed By: #### C BC #### [facility] [address] [place], [place] [address] Shakila Caron Basophils/100 WBC (Bld) 0.8 % Normal 0.2-2.[address] [facility] Comment on above: Performed By: #### C BC #### [facility] [address] [place] [id number] Shakila Caron EO # 0.2 103/ul Normal 0.0-0.[address] [facility] Comment on above: Performed By: #### C BC #### [facility] [address] [place], [place] [address] Shakila Caron Eosinophils/100 WBC (Bld) 3.1 % Normal 0.9-7.[address] [facility] Comment on above: Performed By: #### C BC #### [facility] [address] [place] [address] Shakila Caron Erythrocyte distribution width (RBC) [Ratio] 12.6 % Normal 11.0-15.[address] [facility] Comment on above: Performed By: #### C BC #### [facility] [address] [place], [place] [address] Shakila Caron Hematocrit (Bld) [Volume fraction] 40.6 % Normal 36.0-48.0 [facility] Comment on above: Performed By: #### C BC #### [facility] [address] [place], [place] [address] Shakila Caron Hemoglobin (Bld) [Mass/Vol] 13.6 g/dL Normal 12.0-16.[address] [facility] Comment on above: Performed By: #### C BC #### [facility] [address] [place], [place] [address] Shakila Caron IG # 0.01 10e3/ul Normal 0.00-0.[address] [facility] Comment on above: Performed By: #### C BC #### [facility] [address] [place], [place] [address] Shakila Caron IG % 0.2 % Normal 0.0-0.[address] [facility] Comment on above: Performed By: #### C BC #### [facility] [address] [place] [address] Shakila Caron LYMPH # 2.0 103/ul Normal 1.2-3.8 [facility] Comment on above: Performed By: #### C BC #### [facility] [address] [place], [place] [address] Shakila Reardon Lymphocytes/100 WBC (Bld) 31.0 % Normal 20.5-60.0 [facility] Comment on above: Performed By: #### C BC #### [facility] [address] [place] [address] Shakila Reardon MANUAL DIFF REQ NO Normal [facility] Comment on above: Performed By: #### C BC #### [facility] [address] [place] [address] Shakila Reardon MCH (RBC) [Entitic mass] 31.9 pg Normal 26.7-34.0 [facility] Comment on above: Performed By: #### C BC #### [facility] [address] [place] [address] Shakiladomingo Reardon MCHC (RBC) [Mass/Vol] 33.5 g/dL Normal 29.9-35.[address] [facility] Comment on above: Performed By: #### C BC #### [facility] [address] [place] [address] Shakila Reardon MCV (RBC) [Entitic vol] 95.1 fL Normal 81.0-99.0 [facility] Comment on above: Performed By: #### C BC #### [facility] [address] [place] [address] Shakiladomingo Tellezen MONO # 0.7 103/ul Normal 0.3-0.[address] [facility] Comment on above: Performed By: #### C BC #### [facility] [address] [place] [address] Shakila Reardon Monocytes/100 WBC (Bld) 10.7 % Normal 1.7-12.0 [facility] Comment on above: Performed By: #### C BC #### [facility] [address] [place] [address] Shakila Caron NEUT # 3.5 103/ul Normal 1.4-6.5 [facility] Comment on above: Performed By: #### C BC #### [facility] [address] [place], [place] [address] Shakila Reardon Neutrophils/100 WBC (Bld) 54.2 % Normal 43.0-75.0 [facility] Comment on above: Performed By: #### C BC #### [facility] [address] [place] [address] Shakila Reardon Platelet mean volume (Bld) [Entitic vol] 8.9 fL Critically low 9.5-13.5 [facility] Comment on above: Performed By: #### C BC #### [facility] [address] [place], [place] [id number] Shakila Reardon PLT 231 103/ul Normal 150-[address] [facility] Comment on above: Performed By: #### C BC #### [facility] [address] [place], [place] [id number] Shakila Tellezen RBC 4.27 106/ul Normal 4.20-5.40 [facility] Comment on above: Performed By: #### C BC #### [facility] [address] [place] [address] Shakila Reardon WBC 6.5 103/ul Normal 4.0-11.0 [facility] Comment on above: Performed By: #### C BC #### [facility] [address] [place] [address] ABD/PELV W CONon 03-30-[address] ABD/PELV W CON EXAMINATION: CT ABD/ [...] KASEY CAVAZOS Date: 2021-03-30 11:[address] [facility] CULTURE URINEon 03-30-2021 CULTURE URINE Culture Observations : NO GROWTH. Normal [facility] Comment on above: Performed By: #### C RAIN, [facility] #### [facility] [address] [place] [address] Shakila Reardon Covid-19 PCR (CVDTB)on 03-20 SARS-CoV-2 (COVID-19) RNA LISA+probe Ql (Unsp spec) Not detected Normal NOT DETECTED [facility] Comment on above: Result Comment: This test is not yet approved or cleared by the [place] FDA. When there are no FDA-approved or cleared tests available, and other criteria are met, FDA can make tests available under an emergency access mechanism called an Emergency Use Authorization (EUA). The EUA for this test is supported by the [place] of Health and Human Service's (HHS's) declaration [...] consistent with SARS-CoV-2. Performed By: #### C VDTBH #### [facility] [address] [place] [address] Shakila Reardon ECHOCARDIO M/2D COMPLETEon 0 03-30-2021 ECHOCARDIO M/2D COMPLETE Patient: MARCIA WORTHY Exam Date: 03/30/2021 : 1950 Gender:F Ordering : DR TOSHIA MAY . Admission #: [id number] Family : Order #: [id number] CLICK HERE TO VIEW EXAM ECHOCARDIOGRAM REPORT [...] Area(A4C): 12.80 cm2 Left Atrium Systolic Volume(A2C): 42957 mm3 Left Atrium Systolic Volume(A4C): 08370 mm3 Mitral Valve MV E to A [...] M.D. on 03/30/2021 at 16:[address] [facility] GI PANEL (PCR)on 03-30-2021 Adenovirus F 40/41 Not detected Normal NOT DETECTED [facility] Comment on above: Performed By: #### C BC #### [facility] [address] [place] [address] Shakila Reardon Astrovirus Not detected Normal NOT DETECTED [facility] Comment on above: Performed By: #### C BC #### [facility] [address] [place] [address] Shakila Reardon C. Diff toxin A/B Not detected Normal NOT DETECTED [facility] Comment on above: Performed By: #### C BC #### [facility] [address] [place] [address] Shakila Caron Campylobacter Not detected Normal NOT DETECTED [facility] Comment on above: Performed By: #### C BC #### [facility] [address] [place] [address] Shakila Reardon Cryptosporidium Not detected Normal NOT DETECTED [facility] Comment on above: Performed By: #### C BC #### [facility] [address] [place] [address] Shakila Caron Cyclos. Cayetanensis Not detected Normal NOT DETECTED [facility] Comment on above: Performed By: #### C BC #### [facility] [address] [place] [address] Shakiladomingo Reardon E. Coli O157 Not Applicable Normal Not Applicable [facility] Comment on above: Performed By: #### C BC #### [facility] [address] [place] [address] Shakila Caron E. histolytica Not detected Normal NOT DETECTED [facility] Comment on above: Performed By: #### C BC #### [facility] [address] [place] [address] Shakila Caron EAEC Not detected Normal NOT DETECTED [facility] Comment on above: Performed By: #### C BC #### [facility] [address] [place] [address] Shakila Caron EIEC Not detected Normal NOT DETECTED [facility] Comment on above: Performed By: #### C BC #### [facility] [address] [place] [address] Shakiladomingo Reardon EPEC Not detected Normal NOT DETECTED [facility] Comment on above: Performed By: #### C BC #### [facility] [address] [place] [address] Shakila Caron ETEC Not detected Normal NOT DETECTED [facility] Comment on above: Performed By: #### C BC #### [facility] [address] [place] [address] Shakila Caron G. Lamblia Not detected Normal NOT DETECTED [facility] Comment on above: Performed By: #### C BC #### [facility] [address] [place] [address] Shakila Caron GIPANEL CONTROLS PASSED Normal [facility] Comment on above: Performed By: #### C BC #### [facility] [address] [place] [address] Shakila Caron GIPNL RISSA HEADER GI PANEL BACTERIA Normal [facility] Comment on above: Performed By: #### C BC #### [facility] [address] [place] [address] Shakila Caron ROBERTO ECOLI GI PANEL DIARRHEAGEN IC E.COLI / SHIGELLA Normal [facility] Comment on above: Performed By: #### C BC #### [facility] [address] [place] [address] Shakila Caron GIPESTELITA INFO SEE BELOW Normal [facility] Comment on above: Result Comment: EAEC - Enteroaggregative E. Coli EPEC- Enteropathogenic E. Coli ETEC- Enterotoxigenic E. Coli lt/st STEC- Shigella-like toxin-producing E. Coli stx1/stx2 EIEC- Shigella/Enteroinvasive E. Coli Performed By: #### C BC #### [facility] [address] [place] [address] Shakila Caron GIPESTELITA PARASITES GI PANEL PARASITES Normal [facility] Comment on above: Performed By: #### C BC #### [facility] [address] [place] [address] Shakila Caron GIPJACEK VIRUS GI PANEL VIRUSES Normal [facility] Comment on above: Performed By: #### C BC #### [facility] [address] [place] [address] Shakila Caron Norovirus GI/GII Not detected Normal NOT DETECTED [facility] Comment on above: Performed By: #### C BC #### [facility] [address] [place] [address] Shakila Caron P. Shigelloides Not detected Normal NOT DETECTED [facility] Comment on above: Performed By: #### C BC #### [facility] [address] [place] [address] Shakila Caron Rotavirus A Not detected Normal NOT DETECTED [facility] Comment on above: Performed By: #### C BC #### [facility] [address] [place] [address] Shakila Caron Salmonella Not detected Normal NOT DETECTED [facility] Comment on above: Performed By: #### C BC #### [facility] [address] [place] [address] Shakila Caron Sapovirus Not detected Normal NOT DETECTED [facility] Comment on above: Performed By: #### C BC #### [facility] [address] [place] [address] Shakila Reardon STEC Not detected Normal NOT DETECTED [facility] Comment on above: Performed By: #### C BC #### [facility] [address] [place] [address] Shakila Reardon Vibrio Not detected Normal NOT DETECTED [facility] Comment on above: Performed By: #### C BC #### [facility] [address] [place] [address] Shakila Reardon Vibrio Cholera Not detected Normal NOT DETECTED [facility] Comment on above: Performed By: #### C BC #### [facility] [address] [place] [address] Shakila Reardon Y. Enterocolitica Not detected Normal NOT DETECTED [facility] Comment on above: Performed By: #### C BC #### [facility] [address] [place] [address] Shakila Reardon LIPASEon 03-30-2021 Lipase [Catalytic activity/Vol] 419.0 U/L Critically high 23.0-300.0 [facility] Comment on above: Performed By: #### C BC #### [facility] [address] [place] [address] Shakila Reardon OCC BLD IMMUNOASSAYon 2020 OCCULT BLOOD Negative Normal NEGATIVE [facility] Comment on above: Performed By: #### C BC #### [facility] [address] [place] [address] Shakila Reardon PROF 14(COMP METB)on 021 Albumin [Mass/Vol] 4.0 g/dL Normal 3.5-5.0 [facility] Comment on above: Performed By: #### C RAIN, CMP #### [facility] [address] [place] [address] Shakila Reardon Albumin/Globulin [Mass ratio] 0.9 {ratio} Normal [facility] Comment on above: Performed By: #### C RAIN, CMP #### [facility] [address] [place] [address] Shakila Reardon ALP [Catalytic activity/Vol] 59 U/L Normal 38-[address] [facility] Comment on above: Performed By: #### C RAIN, CMP #### [facility] [address] [place], [place] [address] Shakila Caron ALT [Catalytic activity/Vol] 17 U/L Normal 9-[address] [facility] Comment on above: Performed By: #### C RAIN, CMP #### [facility] [address] [place] [id number] Shakila Caron Anion gap [Moles/Vol] 17.7 mmol/L Normal [facility] Comment on above: Performed By: #### C RAIN, CMP #### [facility] [address] [place] [address] Shakila Caron AST [Catalytic activity/Vol] 31 U/L Normal 14-[address] [facility] Comment on above: Performed By: #### C RAIN, CMP #### [facility] [address] [place] [address] Shakila Caron Bilirubin [Mass/Vol] 0.4 mg/dL Normal 0.2-1.[address] [facility] Comment on above: Performed By: #### C RAIN, CMP #### [facility] [address] [place] [address] Shakila Caron Calcium [Mass/Vol] 9.3 mg/dL Normal 8.4-10.[address] [facility] Comment on above: Performed By: #### C RAIN, CMP #### [facility] [address] [place] [address] Shakila Caron Chloride [Moles/Vol] 105 mmol/L Normal 98-[address] [facility] Comment on above: Performed By: #### C RAIN, CMP #### [facility] [address] [place], [place] [address] Shakila Caron CO2 [Moles/Vol] 24.5 mmol/L Normal 22.0-30.[address] [facility] Comment on above: Performed By: #### C RAIN, CMP #### [facility] [address] [place] [address] Shakila Caron Creatinine [Mass/Vol] 0.89 mg/dL Normal 0.52-1.04 [facility] Comment on above: Performed By: #### C MILTONM, CMP #### [facility] [address] [place], [place] [address] Shakila Caron EGFR-AF CROATIAN >60 Normal >=60 [facility] Comment on above: Performed By: #### C MADM, CMP #### [facility] [address] [place], [place] [address] Shakila Caron EGFR-NON AF CROATIAN >60 Normal >=60 [facility] Comment on above: Performed By: #### C MILTONM, CMP #### [facility] [address] [place], [place] [address] Shakila Caron Globulin (S) [Mass/Vol] 4.3 g/dL Normal [facility] Comment on above: Performed By: #### C MADM, CMP #### [facility] [address] [place] [id number] Shakila Caron Glucose [Mass/Vol] 104 mg/dL Normal 74-106 [facility] Comment on above: Performed By: #### C MILTONM, CMP #### [facility] [address] [place] [id number] Shakila Caron Potassium [Moles/Vol] 4.2 mmol/L Normal 3.4-5.0 [facility] Comment on above: Performed By: #### C MADM, CMP #### [facility] [address] [place] [id number] Shakila Caron Protein [Mass/Vol] 8.3 g/dL Critically high 6.1-8.2 [facility] Comment on above: Performed By: #### C MADM, CMP #### [facility] [address] [place] [id number] Shakila Caron Sodium [Moles/Vol] 143 mmol/L Normal 137-145 [facility] Comment on above: Performed By: #### C MADM, CMP #### [facility] [address] [place], [place] [address] Shakila Caron Urea nitrogen [Mass/Vol] 17.0 mg/dL Normal 7.0-17.[address] [facility] Comment on above: Performed By: #### C RAIN, CMP #### [facility] [address] [place] [address] Shakila Reardon Urea nitrogen/Creatinin e [Mass ratio] 19.1 mg/mg Normal [facility] Comment on above: Performed By: #### C RAIN, CMP #### [facility] [address] [place] [address] Shakila Reardon RAPID COVID-19 ANTIGENon EUA Statement SEE BELOW Normal [facility] Comment on above: Result Comment: This test [...] sooner. Performed By: #### C VDAG #### [facility] [address] [place] [address] Shakila Reardon SARS-CoV-2 (COVID-19) RNA LISA+probe Ql (Unsp spec) Negative Normal NEGATIVE [facility] Comment on above: Result Comment: Nega tive results are presumptive. They do not preclude infection and should not be used as the sole basis for treatment decisions. Additional confirmatory testing by a molecular method should be considered. Performed By: #### C VDAG #### [facility] [address] [place] [address] Shakila Reardon UA RANDOM W/MICROSCOPICon BACTERIA NONE SEEN Normal NONE SEEN [facility] Comment on above: Performed By: #### U AMIC #### [facility] [address] [place] [address] Shakila Caron Bilirubin Ql (U) Negative Normal NEGATIVE [facility] Comment on above: Performed By: #### U AMIC #### [facility] [address] [place] [address] Shakila Caron CAST NONE SEEN Normal NONE SEEN [facility] Comment on above: Performed By: #### U AMIC #### [facility] [address] [place] [address] Shakila Caron Clarity (U) CLEAR Normal CLEAR [facility] Comment on above: Performed By: #### U AMIC #### [facility] [address] [place] [address] Shakila Caron Color (U) LT. YELLOW Normal YELLOW [facility] Comment on above: Performed By: #### U AMIC #### [facility] [address] [place] [address] Shakila Caron Crystals LM Nom (Urine sed) NONE SEEN Normal NONE SEEN [facility] Comment on above: Performed By: #### U AMIC #### [facility] [address] [place] [address] Shakila Caron Epithelial cells LM Ql (Urine sed) RARE Normal NONE SEEN /RARE [facility] Comment on above: Performed By: #### U AMIC #### [facility] [address] [place] [address] Shakila Caron Glucose Ql (U) Negative Normal NEGATIVE [facility] Comment on above: Performed By: #### U AMIC #### [facility] [address] [place] [address] Shakila Caron Hemoglobin Ql (U) Negative Normal NEGATIVE [facility] Comment on above: Performed By: #### U AMIC #### [facility] [address] [place] [address] Shakila Caron Ketones Ql (U) Negative Normal NEGATIVE [facility] Comment on above: Performed By: #### U AMIC #### [facility] [address] [place] [address] Shakila Caron LEUKOCYTES Negative Normal NEGATIVE [facility] Comment on above: Performed By: #### U AMIC #### [facility] [address] [place] [id number] Shakila Caron MUCOUS NONE SEEN Normal NONE SEEN [facility] Comment on above: Performed By: #### U AMIC #### [facility] [address] [place] [id number] Shakila Caron Nitrite Ql (U) Negative Normal NEGATIVE [facility] Comment on above: Performed By: #### U AMIC #### [facility] [address] [place], [place] [address] Shakila Caron pH (U) 7.0 [pH] Normal 5-9 [facility] Comment on above: Performed By: #### U AMIC #### [facility] [address] [place], [place] [id number] Shakila Caron RBC NONE SEEN Abnormal 0-2 [facility] Comment on above: Performed By: #### U AMIC #### [facility] [address] [place], [place] [address] Shakila Caron SPEC GRAVITY <=1.005 Abnormal 1.005-<=1.[address] [facility] Comment on above: Performed By: #### U AMIC #### [facility] [address] [place], [place] [address] Shakila Caron UA PROTEIN Negative Normal NEGATIVE/ TRACE [facility] Comment on above: Performed By: #### U AMIC #### [facility] [address] [place], [place] [address] Shakila Caron Urobilinogen Qn (U) 0.2 {Inocencio'U}/dL Normal 0.2 - 1.[address] [facility] Comment on above: Performed By: #### U AMIC #### [facility] [address] [place], [place] [id number] Shakila Caron WBC NONE SEEN Normal NONE SEEN [facility] Comment on above: Performed By: #### U AMIC #### [facility] [address] [place], [place] [id number] Shakila Caron XR CHEST 1 Von 03-30-2021 XR CHEST [...] No acute disease. Electronically authenticated by: TONJA MADISON Date: 2021-03-30 07:02 Normal [facility] CA 19-9on 12-21-2020 CA 19-9 26 U/mL Normal 0-35 [facility] Comment on above: Result Comment: Guang Lian Shi Dai Electrochemiluminescence Immunoassay (ECLIA) . Values obtained with different assay methods or kits cannot be used interchangeably. Results cannot be interpreted as absolute evidence of the presence or absence of malignant disease. Performed By: #### C BC #### [facility] [address] [place] [address] Shakila Reardon US Dominga 12-19-2020 US ABD [...] by: ARMAND BOGGS Date: 2020-12-19 09:[address] [facility] US PELVISon 12-19-2020 US PELVIS EXAMINATION: US [...] by: ARMAND BOGGS Date: 2020-12-19 10:07 Normal [facility] XR LSPINE MIN 4 VIEWSon 10-20 XR [...] by: ARMAND BOGGS Date: 2020-11-03 15:[address] [facility] Vital Signs Date Time Vital Sign Value Performing Clinician Masha renner 08-07-2021 17:00-0400 Body height 147.32 cm Tonja Tyshawnvaishali Other [facility] Other 08-07-2021 17:00-0400 Body mass index (BMI) [Ratio] 25.91 kg/m2 Tonja Tyshawnvaishali Other [facility] Other 08-07-2021 17:00-0400 Body weight 56.25 kg Tonja Tyshawnvaishali Other [facility] Other Encounters Encounter Date Encounter Type Care Provider Facility Start: 08-30-2021 End: 08-30-2021 ambulatory Tonja Fink Other [facility] Other Start: 08-30-2021 Telephone encounter Tonja Fink [facility] Start: 08-10-[address] TOSHIA MAY Facility : Start: 08-07-2021 Office outpatient visit 25 minutes Tonja Fink [facility] Start: 08-01-2021 End: 08-02-[address] [...] 10-31-[address] TOSHIA MAY Facility :[facility] Payers Date Payer Category Payer Medicare [id number] 1961 Medicare [id number] 1961 Self-pay 1961 Unknown [id number] 1950 Unknown [id number] 1950 Unknown [id number] ..[id number] [id number] 1950 Unknown [id number] ..[id number] [id number] 1950 Unknown [id number] ..[id number] [id number] 1950 Unknown [id number] 2..84 0.1.023990.3.579.2.59 1950 Unknown [id number] 2.16.84 [id number] 1950 Unknown [id number] 2.16.84 0.1.950011.3.579.2.593 1950 Unknown [id number] 2.16.84 0.1.692183.3.579.2.593 1950 Unknown [id number] 2.16.84 0.1.961082.3.579.2.593 1950 Unknown [id number] 2.16.84 0.1.642768.3.579.2.593 1950 Unknown [id number] 2.16.84 0.1.335180.3.579.2.593 1950 Unknown [id number] 2.16.84 0.1.340469.3.579.2.593 Unknown [id number] 2.16.84 [id number] Unknown [id number] 2.16.84 [id number] Social History Date Type Detail Facility Sex Assigned At [facility] Other Evaluation note 08-07-2021 Note Date & [...] REPEATING COLONOSCOPY NOW F/U HERE 6 WEEKS [facility] Other Clinical Note 07-10-2021 Note Date & Type Note Facility 07-10-2021 Note PROCEDURE: XR HIP RT 2 3V W PELVIS COMPARISON: None. HISTORY: Pain in right hip joint FINDINGS: BONES:No fracture, acute abnormality, or significant arthropathy. SOFT TISSUES:Negative. No visible soft tissue swelling. EFFUSION:None visible. OTHER: Negative. IMPRESSION: No acute abnormality Electronically authenticated by: TONJA MADISON Date: 2021-07-10 13:[address] [facility] Clinical Note 06-14-2021 Note Date & Type [...] Brother. Primary malignant neoplasm of colon: Mother. [facility] Comment on above: Result Comment: Elec tronically Signed By: RODDY WILSON, Kasey Tirado.br\Date and Time Signed: 06/14/21 10:22 EDT Clinical [...] by: ARMAND BOGGS Date: 2020-11-03 15:[address] [facility] Evaluation note Note Date & Type Note Facility Evaluation note No Information [facility] [employer] Other History general Narrative - Reported Note Date & Type Note Facility History general Narrative - Reported Type Medical History anxiety Medical History colon polyps Surgical History appendectomy Surgical History colon resection Surgical History CHOLECYSTECTOMY Hospitalization History SEE ABOVE [facility] Other Summary Purpose Family History No Family History Records FoundNo Family History Records FoundNo Family History Records Found Advance Directives No Advanced Directives Records FoundNo Advanced Directives Records FoundNo Advanced Directives Records Found Additional Source Comments INFORMATION SOURCE (unrecogn ized section and content) DATE CREATED AUTHOR 04/09/2021 [facility] DATE CREATED AUTHOR AUTHOR'S ORGANIZ ATION 06/21/2021 [facility] DATE CREATED AUTHOR AUTHOR'S ORGANIZ ATION 08/11/2021 [facility] REASON FOR VISIT (unrecogniz ed section and [...] BE BASED ON THE PRIMARY CLINICAL RECORDS. [employer] [facility] provides no warranty or guarantee of the accuracy or completeness of information in this document.
[2024-05-31 11:16] LABS: Alanine Aminotransferase 13 U/L (14-59); Albumin Level 3.5 g/dL (3.4-5.0); Alkaline Phosphatase 65 U/L (46-116); Aspartate Amino Transferase 15 U/L (15-37); Bilirubin Direct 0.1 mg/dL (0.0-0.2); Bilirubin Total 0.4 mg/dL (0.2-1.0); Chol HDL Ratio 5.2; Cholesterol 254 mg/dL (<=200); Globulin 3.6 g/dL; HDL Cholesterol 49 mg/dL (40-60); Total Protein 7.1 g/dL (6.4-8.2); Triglycerides 230 mg/dL (<=150)
== END 2024-05-31 09:34 | disposition home or self-care (01) ==
LOC: LAB 09:36
PROVIDERS: PCP Family Medicine; Visit Provider Family Medicine
DX: E78.00 Pure hypercholesterolemia, unspecified (principal)
CPT/HCPCS: 36415; 80061; 80076

== ENCOUNTER 2024-09-02 15:12 | Outpatient (OUT) | payer MEDICARE, SELFPAY ==
--- OUTSIDE RECORDS SUMMARY | 2024-09-02 15:29 | XMS_ITS | CCD ---
Author Organization [facility] CliniSynv Care Team Providers Care Biological Scientist Name Role Phone LALO, DR POPE Attending [...] HOY, DR POPE Consulting Unavailable WEST, DR TOJNA Gray Consulting Unavailable PAY, DR WRIGHT Consulting [...] Primary Care Unavailable RAMBASEKLIZ Admitting Unavailable RAMBASEK, LIZ Consulting Unavailable RAMBASEK, LIZ Attending Unavailable Tonja Fink Unavailable Allergies Allergy Classification Reported Allergen(s) Allergy Type Date of Onset Reaction(s) Facility (2 sources) Codeine Drug Allergy [facility] (2 sources) house dust allergenic extract Drug Allergy [facility] (2 sources) [place] Containing Products Drug allergy (disorder) [facility] (2 sources) pine oil (Pinus sylvestris) Drug allergy (disorder) [facility] (2 sources) Codeine Drug Allergy vomiting ServiceRelated Other (2 sources) multiple food allergies Propensity to adverse reactions Unknown [facility] Other Medications Current Medications Medication Drug Class(es) [...] 03-30-2021 Episodic Other aftercare (1 source) Other tire balancer (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; Translations: [OTH RESIDENTIAL CURRENT DRUG THERAPY] Onset: 04-04-2021 Episodic Other [...] URINE Culture Observations : No growth Normal [facility] Comment on above: Performed By: #### C RAIN, CMP #### [facility] [address] [place] [address] Shakila Reardon UA (CLEAN/CATCH) MICROSCOPIC IF INDICATEon 08-01-2021 Bilirubin Ql (U) Negative Normal NEGATIVE [facility] Comment on above: Performed By: #### U ARMICR #### [facility] [address] [place] [address] Dr. Jarett Chou Clarity (U) CLEAR Normal CLEAR [facility] Comment on above: Performed By: #### U ARMICR #### [facility] [address] [place] [address] Dr. Jarett Chou Color (U) YELLOW Normal YELLOW [facility] Comment on above: Performed By: #### U ARMICR #### [facility] [address] [place] [address] Dr. Jarett Chou Glucose Ql (U) Negative Normal NEGATIVE [facility] Comment on above: Performed By: #### U ARMICR #### [facility] [address] [place] [address] Dr. Jarett Chou Hemoglobin Ql (U) Negative Normal NEGATIVE [facility] Comment on above: Performed By: #### U ARMICR #### [facility] [address] [place] [address] Dr. Jarett Chou Ketones Ql (U) Negative Normal NEGATIVE [facility] Comment on above: Performed By: #### U ARMICR #### [facility] [address] [address] [address] Jarett Chou LEUKOCYTES Negative Normal NEGATIVE [facility] Comment on above: Performed By: #### U ARMICR #### [facility] [address] [address] [address] Jarett Chou Nitrite Ql (U) Negative Normal NEGATIVE [facility] Comment on above: Performed By: #### U ARMICR #### [facility] [address] [address] [address] Jarett Chou pH (U) 5.5 [pH] Normal 5-9 [facility] Comment on above: Performed By: #### U ARMICR #### [facility] [address] [place] [address] Dr. Jarett Chou SPEC GRAVITY 1.025 Normal 1.005-<=1.025 [facility] Comment on above: Performed By: #### U ARMICR #### [facility] [address] [place] [address] Dr. Jarett Chou UA PROTEIN Negative Normal NEGATIVE/ TRACE [facility] Comment on above: Performed By: #### U ARMICR #### [facility] [address] [place] [address] Dr. Jarett Chou UR MICRO IND NOT INDICATED Normal [facility] Comment on above: Performed By: #### U ARMICR #### [facility] [address] [place] [address] Dr. Jarett Chou Urobilinogen Qn (U) 0.2 {Inocencio'U}/dL Normal 0.2 - 1.0 [facility] Comment on above: Performed By: #### U ARMICR #### [facility] [address] [place] [address] Dr. Jarett Chou Provider Letter [facility]06-20 Provider Letter [facility] June 20, 2021 Toshia Lalo, [address] [place] [address] [place] [address] Re: MARCIA WORTHY Date of : 1950 [...] persist. Sincerely, Kasey Uribe MD General Surgery [facility] Provider Letter [facility] June 20, 2021 Toshia May, [address] [place] [address] [place] [address] Re: MARCIA WORTHY Date of : 1950 Thank you for your referral of Marcia Worthy who was seen on consultation on June 19, 2021, for sebaceous cyst right breast. I have enclosed my consultation notes for your review. I will be happy to follow Marcia should her symptoms persist. Sincerely, Kasey Uribe MD General Surgery [facility] Ambulatory Clinical Summaryo n 06-19-2021 Ambulatory Clinical Summary {[id number]}CD:61 [id number] Normal [facility] General Surgery Office/Clini c Noteon 06-19-2021 General [...] Primary malignant neoplasm of colon: Mother. Normal [facility] Comment on above: Result Comment: Elec tronically Signed By: RODDY WILSON, Kasey Burton\Date and Time Signed: 06/19/21 14:48 EDT Lab Reportson 06-19-2021 Lab Reports [id number]:[id number] Normal [facility] CULTURE WOUNDon 06-16-2021 CULTURE WOUND Isolate 1 [...] Trimethoprim/Sulfamethoxazo le >=320 R F Normal [facility] Comment on above: Performed By: #### C [facility], [facility] #### [facility] [address] [place] [address] Shakila Reardon Ambulatory Clinical Summaryo n 06-12-2021 Ambulatory Clinical Summary {[id number]}CD:61 4368 Normal [facility] XR pre/post mri xrayon 04-05 XR pre/post mri xray [facility] [place] [address] MRI Report Signed Patient: Marcia Worthy MR#: [id number] : 1950 Acct:[id number] Age/Sex: 70 / F ADM Date: 04/05/21 Loc: [facility] Room: Type: [facility] Attending Dr: Toshia May MD Ordering Provider: Toshia May MD Date of Service: 04/05/21 MR/MR lumbar spine wo con: m32.89, m51.9, r10.31 ([id number]) XR/XR pre/post mri xray: N32.89, M51.9 Copies [...] Thomas Morton M.D.04/05/2021 3:05 PM Dictation Location: [place] [address] Transcribed By: [facility] 04/05/21 1505 Dictated By: Thomas Morton DO 04/05/21 1459 Signed By: 04/05/21 1505 [facility] AMYLASEon 03-31-2021 Amylase [Catalytic activity/Vol] 75 U/L Normal 31-110 [facility] Comment on above: Performed By: #### C BC #### [facility] [address], [place] [address] Shakila Reardon CBC AUTO DIFFon 03-31-2021 BASO # 0.0 103/ul Normal 0.0-0.1 [facility] Comment on above: Performed By: #### C BC #### [facility] [address] [place], [place] [address] Shakila Reardon Basophils/100 WBC (Bld) 0.1 % Critically low 0.2-2.0 [facility] Comment on above: Performed By: #### C BC #### [facility] [address] [place] [address] Shakila Caron EO # 0.0 103/ul Normal 0.0-0.7 [facility] Comment on above: Performed By: #### C BC #### [facility] [address] [place] [address] Shakila Caron Eosinophils/100 WBC (Bld) 0.0 % Critically low 0.9-7.0 [facility] Comment on above: Performed By: #### C BC #### [facility] [address] [place] [address] Shakila Caron Erythrocyte distribution width (RBC) [Ratio] 12.8 % Normal 11.0-15.0 [facility] Comment on above: Performed By: #### C BC #### [facility] [address] [place] [address] Shakila Caron Hematocrit (Bld) [Volume fraction] 36.8 % Normal 36.0-48.0 [facility] Comment on above: Performed By: #### C BC #### [facility] [address] [place] [address] Shakila Caron Hemoglobin (Bld) [Mass/Vol] 12.2 g/dL Normal 12.0-16.0 [facility] Comment on above: Performed By: #### C BC #### [facility] [address] [place] [address] Shakila Caron IG # 0.05 10e3/ul Critically high 0.00-0.03 [facility] Comment on above: Performed By: #### C BC #### [facility] [address] [place] [address] Shakila Caron IG % 0.4 % Normal 0.0-0.5 [facility] Comment on above: Performed By: #### C BC #### [facility] [address] [place] [address] Shakila Caron LYMPH # 1.5 103/ul Normal 1.2-3.8 [facility] Comment on above: Performed By: #### C BC #### [facility] [address] [place], [place] [address] Shakila Caron Lymphocytes/100 WBC (Bld) 11.8 % Critically low 20.5-60.0 [facility] Comment on above: Performed By: #### C BC #### [facility] [address] [place], [place] [address] Shakila Caron MANUAL DIFF REQ NO Normal [facility] Comment on above: Performed By: #### C BC #### [facility] [address] [place], [place] [id number] Shakiladomingo Reardon MCH (RBC) [Entitic mass] 31.7 pg Normal 26.7-34.0 [facility] Comment on above: Performed By: #### C BC #### [facility] [address] [place] [address] Shakiladomingo Reardon MCHC (RBC) [Mass/Vol] 33.2 g/dL Normal 29.9-35.2 [facility] Comment on above: Performed By: #### C BC #### [facility] [address] [place], [place] [address] Shakil[place]omingo Reardon MCV (RBC) [Entitic vol] 95.6 fL Normal 81.0-99.0 [facility] Comment on above: Performed By: #### C BC #### [facility] [address] [place], [place] [address] Shakila Caron MONO # 0.4 103/ul Normal 0.3-0.8 [facility] Comment on above: Performed By: #### C BC #### [facility] [address] [place], [place] [address] Shakila Caron Monocytes/100 WBC (Bld) 3.0 % Normal 1.7-12.0 [facility] Comment on above: Performed By: #### C BC #### [facility] [address] [place], [place] [address] Shakila Caron NEUT # 11.0 103/ul Critically high 1.4-6.5 [facility] Comment on above: Performed By: #### C BC #### [facility] [address], [place] [address] Shakila Reardon Neutrophils/100 WBC (Bld) 84.7 % Critically high 43.0-75.0 [facility] Comment on above: Performed By: #### C BC #### [facility] [address] [place] [address] Shakila Reardon Platelet mean volume (Bld) [Entitic vol] 9.0 fL Critically low 9.5-13.5 [facility] Comment on above: Performed By: #### C BC #### [facility] [address] [place] [address] Sahkila Tellezen PLT 223 103/ul Normal 150-450 [facility] Comment on above: Performed By: #### C BC #### [facility] [address] [place] [address] Shakila Reardon RBC 3.85 106/ul Critically low 4.20-5.40 [facility] Comment on above: Performed By: #### C BC #### [facility] [address] [place] [address] Shakila Reradon WBC 12.9 103/ul Critically high 4.0-11.0 [facility] Comment on above: Performed By: #### C BC #### [facility] [address] [place] [address] Shakila Reardon LIPASEon 03-31-2021 Lipase [Catalytic activity/Vol] 205.0 U/L Normal 23.0-300.0 [facility] Comment on above: Performed By: #### C BC #### [facility] [address] [place] [address] Shakila Reardon PROF 14(COMP METB)on 021 Albumin [Mass/Vol] 3.4 g/dL Critically low 3.5-5.0 [facility] Comment on above: Performed By: #### C BC #### [facility] [address] [place] [address] Shakila Reardon Albumin/Globulin [Mass ratio] 0.8 {ratio} Normal [facility] Comment on above: Performed By: #### C BC #### [facility] [address], [place] [address] Shakila Caron ALP [Catalytic activity/Vol] 54 U/L Normal 38-126 [facility] Comment on above: Performed By: #### C BC #### [facility] [address] [place], [place] [address] Shakila Caron ALT [Catalytic activity/Vol] 29 U/L Normal 9-52 [facility] Comment on above: Performed By: #### C BC #### [facility] [address] [place], [place] [address] Shakila Caron Anion gap [Moles/Vol] 15.2 mmol/L Normal [facility] Comment on above: Performed By: #### C BC #### [facility] [address] [place] [address] Shakila Caron AST [Catalytic activity/Vol] 31 U/L Normal 14-36 [facility] Comment on above: Performed By: #### C BC #### [facility] [address] [place] [address] Shakila Caron Bilirubin [Mass/Vol] 0.3 mg/dL Normal 0.2-1.3 [facility] Comment on above: Performed By: #### C BC #### [facility] [address] [place], [place] [address] Shakila Caron Calcium [Mass/Vol] 9.2 mg/dL Normal 8.4-10.2 [facility] Comment on above: Performed By: #### C BC #### [facility] [address] [place], [place] [address] Shakila Caron Chloride [Moles/Vol] 106 mmol/L Normal 98-107 [facility] Comment on above: Performed By: #### C BC #### [facility] [address] [place], [place] [address] Shakila Caron CO2 [Moles/Vol] 23.4 mmol/L Normal 22.0-30.0 [facility] Comment on above: Performed By: #### C BC #### [facility] [address] [place], [place] [address] Shakila Caron Creatinine [Mass/Vol] 0.89 mg/dL Normal 0.52-1.04 [facility] Comment on above: Performed By: #### C BC #### [facility] [address], [place] [address] Shakila Caron EGFR-AF EMIRATI >60 Normal >=60 [facility] Comment on above: Performed By: #### C BC #### [facility] [address], [place] [address] Shakila Caron EGFR-NON AF EMIRATI >60 Normal >=60 [facility] Comment on above: Performed By: #### C BC #### [facility] [address], [place] [address] Shakila Caron Globulin (S) [Mass/Vol] 4.1 g/dL Normal [facility] Comment on above: Performed By: #### C BC #### [facility] [address] [place], [place] [address] Shakila Caron Glucose [Mass/Vol] 145 mg/dL Critically high 74-106 [facility] Comment on above: Performed By: #### C BC #### [facility] [address] [place] [address] Shakila Caron Potassium [Moles/Vol] 4.6 mmol/L Normal 3.4-5.0 [facility] Comment on above: Performed By: #### C BC #### [facility] [address] [place], [place] [address] Shakila Caron Protein [Mass/Vol] 7.5 g/dL Normal 6.1-8.2 [facility] Comment on above: Performed By: #### C BC #### [facility] [address] [place] [address] Shakila Caron Sodium [Moles/Vol] 140 mmol/L Normal 137-145 [facility] Comment on above: Performed By: #### C BC #### [facility] [address] [place] [address] Shakila Caron Urea nitrogen [Mass/Vol] 31.0 mg/dL Critically high 7.0-17.0 [facility] Comment on above: Performed By: #### C BC #### [facility] [address] [place] [address] Shakila Reardon Urea nitrogen/Creatinin e [Mass ratio] 34.8 mg/mg Normal [facility] Comment on above: Performed By: #### C BC #### [facility] [address] [place] [address] Shakila Reardon C. DIFF PCRon 03-30-2021 C. DIFFICILE PCR Negative Normal NEGATIVE [facility] Comment on above: Performed By: #### C DIFPOC #### [facility] [address] [place] [address] Shakila Tellezen CARDIAC MIKE 3-6on 1 CK [Catalytic activity/Vol] 53 U/L Normal 30-135 [facility] Comment on above: Performed By: #### C RAIN, CMP #### [facility] [address] [place], [place] [address] Shakila Caron CK.MB [Mass/Vol] 0.85 ng/mL Normal <=2.37 [facility] Comment on above: Performed By: #### C MADM, CMP #### [facility] [address] [place], [place] [address] Shakila Reardon HSTROP 7.9 pg/mL Normal 4.0-35.5 [facility] Comment on above: Result Comment: CUT- OFF POINTS HAVE BEEN ESTABLISHED BASED ON THE FOURTH UNIVERSAL DEFINITIONS OF MYOCARDIAL INFARCTION. THE UPPER REFERENCE LIMIT (URL) OF TROPONIN, DEFINED THE 99TH PERCENTILE OF cTnI DISTRIBUTION IN A REFERENCE POPULATION, HAS BEEN CONFIRMED THE DECISION THRESHOLD FOR [place] DIAGNOSIS. Performed By: #### C MADM, CMP #### [facility] [address] [place] [address] Shakila Caron CK [Catalytic activity/Vol] 58 U/L Normal 30-135 [facility] Comment on above: Performed By: #### C MREP #### [facility] [address] [place] [address] Shakila Caron CK.MB [Mass/Vol] 0.84 ng/mL Normal <=2.37 [facility] Comment on above: Performed By: #### C MREP #### [facility] [address] [place] [address] Shakila Reardon HSTROP 5.0 pg/mL Normal 4.0-35.5 [facility] Comment on above: Result Comment: CUT- OFF POINTS HAVE BEEN ESTABLISHED BASED ON THE FOURTH UNIVERSAL DEFINITIONS OF MYOCARDIAL INFARCTION. THE UPPER REFERENCE LIMIT (URL) OF TROPONIN, DEFINED THE 99TH PERCENTILE OF cTnI DISTRIBUTION IN A REFERENCE POPULATION, HAS BEEN CONFIRMED THE DECISION THRESHOLD FOR [place] DIAGNOSIS. Performed By: #### C MREP #### [facility] [address] [place] [address] Shakila Reardon CARDIAC MIKE ADMITon 021 CK [Catalytic activity/Vol] 53 U/L Normal 30-135 [facility] Comment on above: Performed By: #### C RAIN, CMP #### [facility] [address] [place] [address] Shakila Reardon CK.MB [Mass/Vol] 0.62 ng/mL Normal <=2.37 [facility] Comment on above: Performed By: #### C RAIN, CMP #### [facility] [address] [place] [address] Shakila Reardon HSTROP <4.0 Normal 4.0-35.5 [facility] Comment on above: Result Comment: CUT- OFF POINTS HAVE BEEN ESTABLISHED BASED ON THE FOURTH UNIVERSAL DEFINITIONS OF MYOCARDIAL INFARCTION. THE UPPER REFERENCE LIMIT (URL) OF TROPONIN, DEFINED THE 99TH PERCENTILE OF cTnI DISTRIBUTION IN A REFERENCE POPULATION, HAS BEEN CONFIRMED THE DECISION THRESHOLD FOR [place] DIAGNOSIS. Performed By: #### C RAIN, CMP #### [facility] [address] [place] [address] Shakila Reardon JESSICA 28.0 ng/mL Normal <=61.5 [facility] Comment on above: Performed By: #### C RAIN, CMP #### [facility] [address] [place] [address] Shakila Reardon CBC AUTO DIFFon 03-30-2021 BASO # 0.1 103/ul Normal 0.0-0.1 [facility] Comment on above: Performed By: #### C BC #### [facility] [address] [place], [place] [address] Shakila Caron Basophils/100 WBC (Bld) 0.8 % Normal 0.2-2.0 [facility] Comment on above: Performed By: #### C BC #### [facility] [address] [id number] Shakila Caron EO # 0.2 103/ul Normal 0.0-0.7 [facility] Comment on above: Performed By: #### C BC #### [facility] [address] [place], [place] [address] Shakila Caron Eosinophils/100 WBC (Bld) 3.1 % Normal 0.9-7.0 [facility] Comment on above: Performed By: #### C BC #### [facility] [address] [place] [address] Shakila Caron Erythrocyte distribution width (RBC) [Ratio] 12.6 % Normal 11.0-15.0 [facility] Comment on above: Performed By: #### C BC #### [facility] [address] [place], [place] [address] Shakila Caron Hematocrit (Bld) [Volume fraction] 40.6 % Normal 36.0-48.0 [facility] Comment on above: Performed By: #### C BC #### [facility] [address] [place], [place] [address] Shakila Caron Hemoglobin (Bld) [Mass/Vol] 13.6 g/dL Normal 12.0-16.0 [facility] Comment on above: Performed By: #### C BC #### [facility] [address] [place], [place] [address] Shakila Caron IG # 0.01 10e3/ul Normal 0.00-0.03 [facility] Comment on above: Performed By: #### C BC #### [facility] [address] [place], [place] [address] Shakila Caron IG % 0.2 % Normal 0.0-0.5 [facility] Comment on above: Performed By: #### C BC #### [facility] [address] [place] [address] Shakila Caron LYMPH # 2.0 103/ul Normal 1.2-3.8 [facility] Comment on above: Performed By: #### C BC #### [facility] [address] [place], [place] [address] Shakila Reardon Lymphocytes/100 WBC (Bld) 31.0 % Normal 20.5-60.0 [facility] Comment on above: Performed By: #### C BC #### [facility] [address] [place] [address] Shakila Reardon MANUAL DIFF REQ NO Normal [facility] Comment on above: Performed By: #### C BC #### [facility] [address] [place] [address] Shakila Reardon MCH (RBC) [Entitic mass] 31.9 pg Normal 26.7-34.0 [facility] Comment on above: Performed By: #### C BC #### [facility] [address] [place] [address] Shakiladomingo Reardon MCHC (RBC) [Mass/Vol] 33.5 g/dL Normal 29.9-35.2 [facility] Comment on above: Performed By: #### C BC #### [facility] [address] [place] [address] Shakila Reardon MCV (RBC) [Entitic vol] 95.1 fL Normal 81.0-99.0 [facility] Comment on above: Performed By: #### C BC #### [facility] [address] [place] [address] Shakiladomingo Tellezen MONO # 0.7 103/ul Normal 0.3-0.8 [facility] Comment on above: Performed By: #### C BC #### [facility] [address] [place] [address] Shakila Reardon Monocytes/100 WBC (Bld) 10.7 % Normal 1.7-12.0 [facility] Comment on above: Performed By: #### C BC #### [facility] [address] [place] [address] Shakila Caron NEUT # 3.5 103/ul Normal 1.4-6.5 [facility] Comment on above: Performed By: #### C BC #### [facility] [address] [place], [place] [address] Shakila Reardon Neutrophils/100 WBC (Bld) 54.2 % Normal 43.0-75.0 [facility] Comment on above: Performed By: #### C BC #### [facility] [address] [place] [address] Shakila Reardon Platelet mean volume (Bld) [Entitic vol] 8.9 fL Critically low 9.5-13.5 [facility] Comment on above: Performed By: #### C BC #### [facility] [address] [place], [place] [address] Shakila Reardon PLT 231 103/ul Normal 150-450 [facility] Comment on above: Performed By: #### C BC #### [facility] [address] [place], [place] [address] Shakila Tellezen RBC 4.27 106/ul Normal 4.20-5.40 [facility] Comment on above: Performed By: #### C BC #### [facility] [address] [place] [address] Shakila Reardon WBC 6.5 103/ul Normal 4.0-11.0 [facility] Comment on above: Performed By: #### C BC #### [facility] [address] [place] [id number] ABD/PELV W CONon 03-30-20 [...] KASEY CAVAZOS Date: 2021-03-30 11:15 Normal [facility] CULTURE URINEon 03-30-2021 CULTURE URINE Culture Observations : NO GROWTH. Normal [facility] Comment on above: Performed By: #### C RAIN, [facility] #### [facility] [address] [place] [address] Shakila Reardon Covid-19 PCR (CVDTB)on 03-20 SARS-CoV-2 (COVID-19) RNA LISA+probe Ql (Unsp spec) Not detected Normal NOT DETECTED [facility] Comment on above: Result Comment: This test is not yet approved or cleared by the [place] FDA. When there are no FDA-approved or cleared tests available, and other criteria are met, FDA can make tests available under an emergency access mechanism called an Emergency Use Authorization (EUA). The EUA for this test is supported by the [employer] of Health and Human Service's (HHS's) declaration [...] SARS-CoV-2. Performed By: #### C VDTBH #### [facility] [address] [place] [address] Shakila Reardon ECHOCARDIO M/2D COMPLETEon 0 03-30-2021 ECHOCARDIO M/2D COMPLETE Patient: MARCIA WORTHY Exam Date: 03/30/2021 : 1950 Gender:F Ordering : DR TOSHIA MAY . Admission #: [id number] Family : Order #: [id number] CLICK HERE TO VIEW EXAM ECHOCARDIOGRAM REPORT [...] Area(A4C): 12.80 cm2 Left Atrium Systolic Volume(A2C): 46971 mm3 Left Atrium Systolic Volume(A4C): 29094 mm3 Mitral Valve MV E to A [...] M.D. on 03/30/2021 at 16:31 Normal [facility] GI PANEL (PCR)on 03-30-2021 Adenovirus F 40/41 Not detected Normal NOT DETECTED [facility] Comment on above: Performed By: #### C BC #### [facility] [address] [place] [address] Shakila Reardon Astrovirus Not detected Normal NOT DETECTED [facility] Comment on above: Performed By: #### C BC #### [facility] [address] [place] [address] Shakila Reardon C. Diff toxin A/B Not detected Normal NOT DETECTED [facility] Comment on above: Performed By: #### C BC #### [facility] [address] [place] [address] Shakila Caron Campylobacter Not detected Normal NOT DETECTED [facility] Comment on above: Performed By: #### C BC #### [facility] [address] [place] [address] Shakila Reardon Cryptosporidium Not detected Normal NOT DETECTED [facility] Comment on above: Performed By: #### C BC #### [facility] [address] [place] [address] Shakila Caron Cyclos. Cayetanensis Not detected Normal NOT DETECTED [facility] Comment on above: Performed By: #### C BC #### [facility] [address] [place] [address] Shakiladomingo Reardon E. Coli O157 Not Applicable Normal Not Applicable [facility] Comment on above: Performed By: #### C BC #### [facility] [address] [place] [address] Shakila Caron E. histolytica Not detected Normal NOT DETECTED [facility] Comment on above: Performed By: #### C BC #### [facility] [address] [place] [address] Shakila Caron EAEC Not detected Normal NOT DETECTED [facility] Comment on above: Performed By: #### C BC #### [facility] [address] [place] [address] Shakila Caron EIEC Not detected Normal NOT DETECTED [facility] Comment on above: Performed By: #### C BC #### [facility] [address] [place] [address] Shakiladomingo Reardon EPEC Not detected Normal NOT DETECTED [facility] Comment on above: Performed By: #### C BC #### [facility] [address] [place] [address] Shakila Caron ETEC Not detected Normal NOT DETECTED [facility] Comment on above: Performed By: #### C BC #### [facility] [address] [place] [address] Shakila Caron G. Lamblia Not detected Normal NOT DETECTED [facility] Comment on above: Performed By: #### C BC #### [facility] [address] [place] [address] Shakila Caron GIPANEL CONTROLS PASSED Normal [facility] Comment on above: Performed By: #### C BC #### [facility] [address] [place] [address] Shakila Caron GIPNL RISSA HEADER GI PANEL BACTERIA Normal [facility] Comment on above: Performed By: #### C BC #### [facility] [address] [place] [address] Shakila Caron ROBERTO ECOLI GI PANEL DIARRHEAGEN IC E.COLI / SHIGELLA Normal [facility] Comment on above: Performed By: #### C BC #### [facility] [address] [place] [address] Shakila Caron GIPESTELITA INFO SEE BELOW Normal [facility] Comment on above: Result Comment: EAEC - Enteroaggregative E. Coli EPEC- Enteropathogenic E. Coli ETEC- Enterotoxigenic E. Coli lt/st STEC- Shigella-like toxin-producing E. Coli stx1/stx2 EIEC- Shigella/Enteroinvasive E. Coli Performed By: #### C BC #### [facility] [address] [place] [address] Shakila Caron GIPESTELITA PARASITES GI PANEL PARASITES Normal [facility] Comment on above: Performed By: #### C BC #### [facility] [address] [place] [address] Shakila Caron GIPJACEK VIRUS GI PANEL VIRUSES Normal [facility] Comment on above: Performed By: #### C BC #### [facility] [address] [place] [address] Shakila Caron Norovirus GI/GII Not detected Normal NOT DETECTED [facility] Comment on above: Performed By: #### C BC #### [facility] [address] [place] [address] Shakila Caron P. Shigelloides Not detected Normal NOT DETECTED [facility] Comment on above: Performed By: #### C BC #### [facility] [address] [place] [address] Shakila Caron Rotavirus A Not detected Normal NOT DETECTED [facility] Comment on above: Performed By: #### C BC #### [facility] [address] [place] [address] Shakila Caron Salmonella Not detected Normal NOT DETECTED [facility] Comment on above: Performed By: #### C BC #### [facility] [address] [place] [address] Shakila Caron Sapovirus Not detected Normal NOT DETECTED [facility] Comment on above: Performed By: #### C BC #### [facility] [address] [place] [address] Shakila Reardon STEC Not detected Normal NOT DETECTED [facility] Comment on above: Performed By: #### C BC #### [facility] [address] [place] [address] Shakila Reardon Vibrio Not detected Normal NOT DETECTED [facility] Comment on above: Performed By: #### C BC #### [facility] [address] [place] [address] Shakila Reardon Vibrio Cholera Not detected Normal NOT DETECTED [facility] Comment on above: Performed By: #### C BC #### [facility] [address] [place] [address] Shakila Reardon Y. Enterocolitica Not detected Normal NOT DETECTED [facility] Comment on above: Performed By: #### C BC #### [facility] [address] [place] [address] Shakila Reardon LIPASEon 03-30-2021 Lipase [Catalytic activity/Vol] 419.0 U/L Critically high 23.0-300.0 [facility] Comment on above: Performed By: #### C BC #### [facility] [address] [place] [address] Shakila Reardon OCC BLD IMMUNOASSAYon 2020 OCCULT BLOOD Negative Normal NEGATIVE [facility] Comment on above: Performed By: #### C BC #### [facility] [address] [place] [address] Shakila Reardon PROF 14(COMP METB)on 021 Albumin [Mass/Vol] 4.0 g/dL Normal 3.5-5.0 [facility] Comment on above: Performed By: #### C RAIN, CMP #### [facility] [address] [place] [address] Shakila Reardon Albumin/Globulin [Mass ratio] 0.9 {ratio} Normal [facility] Comment on above: Performed By: #### C RAIN, CMP #### [facility] [address] [place] [address] Shakila Reardon ALP [Catalytic activity/Vol] 59 U/L Normal 38-126 [facility] Comment on above: Performed By: #### C RAIN, CMP #### [facility] [address] [place], [place] [id number] Shakila Caron ALT [Catalytic activity/Vol] 17 U/L Normal 9-52 [facility] Comment on above: Performed By: #### C RAIN, CMP #### [facility] [address] [id number] Shakila Caron Anion gap [Moles/Vol] 17.7 mmol/L Normal [facility] Comment on above: Performed By: #### C RAIN, CMP #### [facility] [address] [place] [address] Shakila Caron AST [Catalytic activity/Vol] 31 U/L Normal 14-36 [facility] Comment on above: Performed By: #### C RAIN, CMP #### [facility] [address] [place] [address] Shakila Caron Bilirubin [Mass/Vol] 0.4 mg/dL Normal 0.2-1.3 [facility] Comment on above: Performed By: #### C RAIN, CMP #### [facility] [address] [place] [address] Shakila Caron Calcium [Mass/Vol] 9.3 mg/dL Normal 8.4-10.2 [facility] Comment on above: Performed By: #### C RAIN, CMP #### [facility] [address] [place] [address] Shakila Caron Chloride [Moles/Vol] 105 mmol/L Normal 98-107 [facility] Comment on above: Performed By: #### C RAIN, CMP #### [facility] [address] [place], [place] [id number] Shakila Caron CO2 [Moles/Vol] 24.5 mmol/L Normal 22.0-30.0 [facility] Comment on above: Performed By: #### C RAIN, CMP #### [facility] [address] [place] [address] Shakila Caron Creatinine [Mass/Vol] 0.89 mg/dL Normal 0.52-1.04 [facility] Comment on above: Performed By: #### C MILTONM, CMP #### [facility] [address] [place], [place] [address] Shakila Caron EGFR-AF EMIRATI >60 Normal >=60 [facility] Comment on above: Performed By: #### C MADM, CMP #### [facility] [address] [place], [place] [address] Shakila Caron EGFR-NON AF EMIRATI >60 Normal >=60 [facility] Comment on above: Performed By: #### C MILTONM, CMP #### [facility] [address] [place], [place] [address] Shakila Caron Globulin (S) [Mass/Vol] 4.3 g/dL Normal [facility] Comment on above: Performed By: #### C MADM, CMP #### [facility] [address] [id number] Shakila Caron Glucose [Mass/Vol] 104 mg/dL Normal 74-106 [facility] Comment on above: Performed By: #### C MILTONM, CMP #### [facility] [address] [id number] Shakila Caron Potassium [Moles/Vol] 4.2 mmol/L Normal 3.4-5.0 [facility] Comment on above: Performed By: #### C MADM, CMP #### [facility] [address] [id number] Shakila Caron Protein [Mass/Vol] 8.3 g/dL Critically high 6.1-8.2 [facility] Comment on above: Performed By: #### C MADM, CMP #### [facility] [address] [id number] Shakila Caron Sodium [Moles/Vol] 143 mmol/L Normal 137-145 [facility] Comment on above: Performed By: #### C MADM, CMP #### [facility] [address] [place], [place] [address] Shakila Caron Urea nitrogen [Mass/Vol] 17.0 mg/dL Normal 7.0-17.0 [facility] Comment on above: Performed By: #### C RAIN, CMP #### [facility] [address] [place] [address] Shakila Reardon Urea nitrogen/Creatinin e [Mass ratio] 19.1 mg/mg Normal [facility] Comment on above: Performed By: #### C RAIN, CMP #### [facility] [address] [place] [address] Shakila Reardon RAPID COVID-19 ANTIGENon EUA Statement SEE BELOW Normal [facility] Comment on above: Result Comment: This test [...] sooner. Performed By: #### C VDAG #### [facility] [address] [place] [address] Shakila Reardon SARS-CoV-2 (COVID-19) RNA LISA+probe Ql (Unsp spec) Negative Normal NEGATIVE [facility] Comment on above: Result Comment: Nega tive results are presumptive. They do not preclude infection and should not be used as the sole basis for treatment decisions. Additional confirmatory testing by a molecular method should be considered. Performed By: #### C VDAG #### [facility] [address] [place] [address] Shakila Reardon UA RANDOM W/MICROSCOPICon BACTERIA NONE SEEN Normal NONE SEEN [facility] Comment on above: Performed By: #### U AMIC #### [facility] [address] [place] [address] Shakila Caron Bilirubin Ql (U) Negative Normal NEGATIVE [facility] Comment on above: Performed By: #### U AMIC #### [facility] [address] [place] [address] Shakila Caron CAST NONE SEEN Normal NONE SEEN [facility] Comment on above: Performed By: #### U AMIC #### [facility] [address] [address] Shakila Caron Clarity (U) CLEAR Normal CLEAR [facility] Comment on above: Performed By: #### U AMIC #### [facility] [address] [address] Shakila Caron Color (U) LT. YELLOW Normal YELLOW [facility] Comment on above: Performed By: #### U AMIC #### [facility] [address] [place] [address] Shakila Caron Crystals LM Nom (Urine sed) NONE SEEN Normal NONE SEEN [facility] Comment on above: Performed By: #### U AMIC #### [facility] [address] [place] [address] Shakila Caron Epithelial cells LM Ql (Urine sed) RARE Normal NONE SEEN /RARE [facility] Comment on above: Performed By: #### U AMIC #### [facility] [address] [place] [address] Shakila Caron Glucose Ql (U) Negative Normal NEGATIVE [facility] Comment on above: Performed By: #### U AMIC #### [facility] [address] [place] [address] Shakila Caron Hemoglobin Ql (U) Negative Normal NEGATIVE [facility] Comment on above: Performed By: #### U AMIC #### [facility] [address] [place] [address] Shakila Caron Ketones Ql (U) Negative Normal NEGATIVE [facility] Comment on above: Performed By: #### U AMIC #### [facility] [address] [place] [address] Sahkila Caron LEUKOCYTES Negative Normal NEGATIVE [facility] Comment on above: Performed By: #### U AMIC #### [facility] [address] [id number] Shakila Caron MUCOUS NONE SEEN Normal NONE SEEN [facility] Comment on above: Performed By: #### U AMIC #### [facility] [address] [id number] Shakila Caron Nitrite Ql (U) Negative Normal NEGATIVE [facility] Comment on above: Performed By: #### U AMIC #### [facility] [address] [place], [place] [id number] Shakila Caron pH (U) 7.0 [pH] Normal 5-9 [facility] Comment on above: Performed By: #### U AMIC #### [facility] [address] [place], [place] [id number] Shakila Caron RBC NONE SEEN Abnormal 0-2 [facility] Comment on above: Performed By: #### U AMIC #### [facility] [address] [place], [place] [address] Shakila Caron SPEC GRAVITY <=1.005 Abnormal 1.005-<=1.025 [facility] Comment on above: Performed By: #### U AMIC #### [facility] [address] [place], [place] [address] Shakila Caron UA PROTEIN Negative Normal NEGATIVE/ TRACE [facility] Comment on above: Performed By: #### U AMIC #### [facility] [address] [place], [place] [address] Shakila Caron Urobilinogen Qn (U) 0.2 {Inocencio'U}/dL Normal 0.2 - 1.0 [facility] Comment on above: Performed By: #### U AMIC #### [facility] [address] [place], [place] [id number] Shakila Caron WBC NONE SEEN Normal NONE SEEN [facility] Comment on above: Performed By: #### U AMIC #### [facility] [address] [place], [place] [id number] Shakila Caron XR CHEST 1 Von 03-30-2021 [...] by: TONJA MADISON Date: 2021-03-30 07:02 Normal [facility] CA 19-9on 12-21-2020 CA 19-9 26 U/mL Normal 0-35 [facility] Comment on above: Result Comment: Arrogene Electrochemiluminescence Immunoassay (ECLIA) . Values obtained with different assay methods or kits cannot be used interchangeably. Results cannot be interpreted as absolute evidence of the presence or absence of malignant disease. Performed By: #### C BC #### [facility] [address] [place] [address] Shakila Reardon US Dominga 12-19-2020 US ABD [...] ARMAND BOGGS Date: 2020-12-19 09:09 Normal [facility] US PELVISon 12-19-2020 US PELVIS EXAMINATION: US [...] by: ARMAND BOGGS Date: 2020-12-19 10:07 Normal [facility] XR LSPINE MIN 4 VIEWSon 10-20 XR [...] ARMAND BOGGS Date: 2020-11-03 15:41 Normal [facility] Vital Signs Date Time Vital Sign Value Performing Clinician Masha renner 08-07-2021 17:00-0400 Body height 147.32 cm Tonja Tyshawnvaishali Other [facility] Other 08-07-2021 17:00-0400 Body mass index (BMI) [Ratio] 25.91 kg/m2 Tonja Tyshawnvaishali Other [facility] Other 08-07-2021 17:00-0400 Body weight 56.25 kg Tonja Tyshawnvaishali Other [facility] Other Encounters Encounter Date Encounter Type Care Provider Facility Start: 08-30-2021 End: 08-30-2021 ambulatory Tonja Fink Other [facility] Other Start: 08-30-2021 Telephone encounter Tonja Fink [facility] Gastroenterology Start: 08-10-[address] TOSHIA MAY Facility : Start: 08-07-2021 Office outpatient visit 25 minutes Tonja Fink [facility] Gastroenter[facility] Start: 08-01-2021 End: 08-02-2021 [...] :H1 Payers Date Payer Category Payer Medicare [id number] 1961 Medicare [id number] 1961 Self-pay 1961 Unknown [id number] 1950 Unknown [id number] ..[id number] 1950 Unknown [id number] ..[id number] [id number] 1950 Unknown [id number] ..[id number] 0.1.136090.3.579.2.59 1950 Unknown [id number] ..[id number] [id number] 1950 Unknown [id number] 2..84 0.1.842314.3.579.2.59 1950 Unknown [id number] 2.16.84 0.1.643441.3.579.2.593 1950 Unknown [id number] 2.16.84 0.1.269639.3.579.2.593 1950 Unknown [id number] 2.16.84 0.1.701041.3.579.2.593 1950 Unknown [id number] 2.16.84 0.1.977283.3.579.2.593 1950 Unknown [id number] 2.16.84 0.1.370329.3.579.2.593 1950 Unknown [id number] 2.16.84 0.1.006508.3.579.2.593 1950 Unknown [id number] 2.16.84 0.1.484412.3.579.2.593 Unknown [id number] 2.16.84 0.1.241739.3.579.2.593 Unknown [id number] 2.16.84 [id number] Social History Date Type Detail Facility Sex Assigned At [facility] Other Evaluation note 08-07-2021 Note Date & [...] REPEATING COLONOSCOPY NOW F/U HERE 6 WEEKS [facility] Other Clinical Note 07-10-2021 Note Date & Type Note Facility 07-10-2021 Note PROCEDURE: XR HIP RT 2 3V W PELVIS COMPARISON: None. HISTORY: Pain in right hip joint FINDINGS: BONES:No fracture, acute abnormality, or significant arthropathy. SOFT TISSUES:Negative. No visible soft tissue swelling. EFFUSION:None visible. OTHER: Negative. IMPRESSION: No acute abnormality Electronically authenticated by: TONJA MADISON Date: 2021-07-10 13:15 [facility] Clinical Note 06-14-2021 Note Date & Type [...] Brother. Primary malignant neoplasm of colon: Mother. [facility] Comment on above: Result Comment: Elec tronically [...] by: ARMAND BOGGS Date: 2020-11-03 15:33 [facility] Evaluation note Note Date & Type Note Facility Evaluation note No Information [facility] [employer] Other History general Narrative - Reported Note Date & Type Note Facility History general Narrative - Reported Type Medical History anxiety Medical History colon polyps Surgical History appendectomy Surgical History colon resection Surgical History CHOLECYSTECTOMY Hospitalization History SEE ABOVE [facility] Other Summary Purpose Family History No Family History Records FoundNo Family History Records FoundNo Family History Records Found Advance Directives No Advanced Directives Records FoundNo Advanced Directives Records FoundNo Advanced Directives Records Found Additional Source Comments INFORMATION SOURCE (unrecogn ized section and content) DATE CREATED AUTHOR 04/09/2021 [facility] DATE CREATED AUTHOR AUTHOR'S ORGANIZ ATION 06/21/2021 [facility] DATE CREATED AUTHOR AUTHOR'S ORGANIZ [...] BE BASED ON THE PRIMARY CLINICAL RECORDS. [employer] [facility]. provides no warranty or guarantee of the accuracy or completeness of information in this document.
[2024-09-04 04:08] LABS: Vitamin B12 395 pg/mL (232-1245)
== END 2024-09-02 15:13 | disposition home or self-care (01) ==
LOC: LAB 15:14
PROVIDERS: PCP Family Medicine; Visit Provider Psychiatry & Neurology Neurology
DX: Z79.899 Other long term (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 (principal)
CPT/HCPCS: 36415; 82607

== ENCOUNTER 2024-10-23 04:06 | Emergency (ER) | payer MEDICARE, SELFPAY ==
--- NOTE | 2024-10-23 04:10 | ECG_ITS ---
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
--- NOTE | 2024-10-23 04:10 | XR_ITS ---
The [address] [address] Patient Name: DENI WORTHY MRN: [id number] date: 1950 Sex: F Assigned Patient Location: ED.MAIN Current Patient Location: ER Accession/Order Number: [id number] Exam Date: 10/23/2024 04:25 Report Date: 10/23/2024 05:20 At the request of: GONZALEZ ESTRADA Procedure: XR chest 1V EXAM: XR chest 1V HISTORY: SOB COMPARISON: Portable chest radiograph dated 03/30/2021. TECHNIQUE: AP erect portable chest radiograph performed. FINDINGS: The trachea is midline. The heart size is normal. Stable moderate atheromatous calcification at the aortic arch. Stable hilar shadows which are unremarkable. There is no consolidation, pleural effusion or pulmonary vascular congestion. There is no pneumothorax. The bony structures are osteopenic. Partially imaged right shoulder replacement. XR/XR chest 1V IMPRESSION: There is no acute cardiopulmonary process. Electronically authenticated by: LEILA VIZCARRA Date: 10/23/2024 05:20
--- NOTE | 2024-10-23 04:10 | ED.GENADUL1 ---
HPI HPI - General Adult General Chief complaint: Shortness of Breath/Dyspnea Stated complaint: sob Time Seen by Provider: 10/23/24 04:08 History of Present Illness HPI narrative: 74-year-old female presents for shortness of breath. This came on suddenly and it woke her up just before coming into the emergency department. She was transported here by paramedics. She was noted to be tachycardic. She has not had a fever. She feels like she has some drainage in her throat. No hemoptysis fever or vomiting. She smokes and believes that she was diagnosed with COPD. She does not use inhalers, and never has. Related Data Home Medications ?Medication ?Instructions ?Recorded ?Confirmed citalopram 10 mg tablet 10 mg PO DAILY 03/17/24 10/23/24 denosumab 60 mg/mL subcutaneous 60 mg subcut .6 months 03/17/24 10/23/24 syringe (Prolia) simvastatin 20 mg tablet 20 mg PO DAILY 03/17/24 10/23/24 donepezil 5 mg tablet 5 mg PO DAILY 10/23/24 10/23/24 Previous Rx's ?Medication ?Instructions ?Recorded albuterol sulfate 90 mcg/actuation 2 inh inhalation Q4H PRN shortness 10/23/24 aerosol inhaler of breath or wheezing #8.5 grams benzonatate 100 mg capsule 100 mg PO TID PRN cough #20 caps 10/23/24 doxycycline hyclate 100 mg capsule 100 mg PO BID 10 days #20 caps 10/23/24 Allergies Allergy/AdvReac Type Severity Reaction Status Date / Time No Known Drug Allergies Allergy Verified 03/17/24 13:32 Opioid HPI Opioid Management Most Recent Opioid Data: No Data to Display Review of Systems ROS Narrative A ten point review of systems is negative except as noted above. PFSH PFSH Social History Little interest or pleasure in doing things: not at all Feeling down, depressed, or hopeless: not at all Exam Narrative Exam Narrative: Nurses note and vital signs reviewed and patient is not hypoxic. General: The patient appears well and in no apparent distress. Patient is resting comfortably on cart. Skin: Warm, dry, no pallor noted. There is no rash noted. Head: Normocephalic, atraumatic Eye: Normal conjunctiva, no drainage Ears, Nose, Mouth, and Throat: oral mucosa is moist. Nares patent. Cardiovascular: Regular Rate and Rhythm, tachycardic Respiratory: Lungs are clear with good air movement. No rales or rhonchi appreciated. Breath sounds are equal Back: non-tender GI: Soft and nontender Musculoskeletal: The patient has no evidence of calf tenderness, no pitting edema, symmetrical pulses noted bilaterally Neurological: A&O, normal speech Psychiatric: Cooperative Constitutional Vital Signs, click to edit/add: Last Vital Signs Temp 97.6 F 10/23/24 04:50 Pulse 129 H 10/23/24 04:12 Resp 22 H 10/23/24 04:12 BP 151/83 H 10/23/24 04:12 Pulse Ox 98 10/23/24 04:20 O2 Del Method Room Air 10/23/24 04:20 Course Vital Signs Vital signs: Vital Signs Temperature 98.2 F 10/23/24 04:12 Pulse Rate 129 H 10/23/24 04:12 Respiratory Rate 22 H 10/23/24 04:12 Blood Pressure 151/83 H 10/23/24 04:12 Pulse Oximetry 98 10/23/24 04:12 Oxygen Delivery Method Room Air 10/23/24 04:12 Temperature 97.6 F 10/23/24 04:50 Pulse Rate 129 H 10/23/24 04:12 Respiratory Rate 22 H 10/23/24 04:12 Blood Pressure 151/83 H 10/23/24 04:12 Pulse Oximetry 98 10/23/24 04:20 Oxygen Delivery Method Room Air 10/23/24 04:20 Medical Decision Making MDM Narrative Medical decision making narrative: Her workup is negative. Chest x-ray shows no infiltrate and her COVID and influenza test are negative. She was given aerosol treatment and seems to be coughing less. Findings are discussed thoroughly with the patient and her family and she is provided prescriptions for albuterol, doxycycline, and Tessalon. Follow-up with PCP and return to ED if symptoms worsen. Treatment diagnosis and follow-up were discussed with the patient. D-dimer is negative. I do not suspect pulmonary embolism. Differential Diagnosis Differential Diagnosis: Pneumonia, Upper Respiratory Infection, COVID, influenza Lab Data Lab results reviewed: Yes I reviewed the patient's lab results Labs: Lab Results 10/23/24 Range/Units 04:15 WBC 8.8 (4.0-11.0) 10^3/uL RBC 4.27 (4.20-5.40) 10^6/uL Hgb 13.5 (12.0-16.0) g/dL Hct 40.0 (36.0-48.0) % MCV 93.7 (81.0-99.0) fL MCH 31.6 (26.7-34.0) pg MCHC 33.8 (29.9-35.2) g/dL RDW 12.7 (11.0-15.0) % Plt Count 269 (150-450) 10^3/uL MPV 8.8 L (9.5-13.5) fL Neut % (Auto) 55.9 (43.0-75.0) % Lymph % (Auto) 29.3 (20.5-60.0) % Churchill % (Auto) 11.8 (1.7-12.0) % Eos % (Auto) 2.1 (0.9-7.0) % Baso % (Auto) 0.7 (0.2-2.0) % Neut # (Auto) 4.9 (1.4-6.5) 10^3/uL Lymph # (Auto) 2.6 (1.2-3.8) 10^3/uL Churchill # (Auto) 1.0 H (0.3-0.8) 10^3/uL Eos # (Auto) 0.2 (0.0-0.7) 10^3/uL Baso # (Auto) 0.1 (0.0-0.1) 10^3/uL Abs Immat Gran (auto) 0.02 (0.00-0.03) 10^3/uL Imm/Tot Granulo (auto) 0.2 (0.0-0.5) % D-Dimer 0.27 (<=0.59) mg/L FEU Sodium 142 (136-145) mmol/L Potassium 3.8 (3.5-5.1) mmol/L Chloride 104 (98-107) mmol/L Carbon Dioxide 26.3 (21.0-32.0) mmol/L Anion Gap 15.5 BUN 8.0 (7.0-18.0) mg/dL Creatinine 1.12 H (0.55-1.02) mg/dL Est GFR ( Amer) 57 L (>=60 mL/min/1.73m^2) Est GFR (Non-Af Amer) 47 L (>=60 mL/min/1.73m^2) BUN/Creatinine Ratio 7.1 Glucose 120 H (74-106) mg/dL Calcium 9.3 (8.5-10.1) mg/dL Troponin I High Sens 23.2 (4.0-51.3) pg/mL Influenza Type A Ag Negative Influenza Type B Ag Negative SARS-CoV-2 Ag (CV2AG) Negative (NEGATIVE) Imaging Data Chest x-ray: Radiologist's impression: ITS Impressions Chest X-Ray 10/23/24 04:10 IMPRESSION: There is no acute cardiopulmonary process. Electronically authenticated by: LEILA VIZCARRA Date: 10/23/2024 05:20 ECG Data Attestation: I personally reviewed and interpreted this ECG as follows: (EKG on my interpretation shows sinus rhythm with a rate of 119) Discharge Plan Discharge Chief Complaint: Shortness of Breath/Dyspnea Clinical Impression: Upper respiratory infection Patient Disposition: Home, Self-Care Time of Disposition Decision: 05:46 Condition: Good Mode of Transportation: Private Vehicle Prescriptions / Home Meds: New doxycycline hyclate 100 mg capsule 100 mg PO BID 10 Days Qty: 20 0RF benzonatate 100 mg capsule 100 mg PO TID PRN (Reason: cough) Qty: 20 0RF albuterol sulfate 90 mcg/actuation HFA aerosol inhaler 2 inh inhalation Q4H PRN (Reason: shortness of breath or wheezing) Qty: 8.5 0RF No Action citalopram 10 mg tablet 10 mg PO DAILY simvastatin 20 mg tablet 20 mg PO DAILY Prolia 60 mg/mL syringe 60 mg subcut .6 months donepezil 5 mg tablet 5 mg PO DAILY Print Language: Bots[place] Instructions: Upper Respiratory Infection (ED) Referrals: Shar May MD [Primary Care Provider] - 1 week
[2024-10-23 04:12] VITALS: BP 151/83; PULSE 129; TEMP 36.8; O2SAT 98; BMI 22.7
[2024-10-23 04:20] VITALS: O2SAT 98
[2024-10-23 04:31] LABS: Basophils Absolute Auto 0.1 10^3/uL (0.0-0.1); Basophils Percent Auto 0.7 % (0.2-2.0); Eosinophils Absolute Auto 0.2 10^3/uL (0.0-0.7); Eosinophils Percent Auto 2.1 % (0.9-7.0); Hemoglobin 13.5 g/dL (12.0-16.0); Immature Granulocytes Abs Auto 0.02 10^3/uL (0.00-0.03); Immature Granulocytes Pct Auto 0.2 % (0.0-0.5); Lymphocytes Absolute Auto 2.6 10^3/uL (1.2-3.8); Lymphocytes Percent Auto 29.3 % (20.5-60.0); Mean Corpuscular HGB Conc 33.8 g/dL (29.9-35.2); Mean Corpuscular Hemoglobin 31.6 pg (26.7-34.0); Mean Corpuscular Volume 93.7 fL (81.0-99.0); Mean Platelet Volume 8.8 fL (9.5-13.5); Monocytes Percent Auto 11.8 % (1.7-12.0); Neutrophils Absolute Auto 4.9 10^3/uL (1.4-6.5); Neutrophils Percent Auto 55.9 % (43.0-75.0); Platelet Count 269 10^3/uL (150-450); Red Blood Count 4.27 10^6/uL (4.20-5.40); Red Cell Distribution Width 12.7 % (11.0-15.0); White Blood Count 8.8 10^3/uL (4.0-11.0)
[2024-10-23 04:44] LABS: D Dimer 0.27 mg/L FEU (<=0.59)
[2024-10-23] MEDS: ALBUTEROL SULFATE 2.5 MG/3 ML VIAL NEB IH (04:46)
[2024-10-23 04:48] LABS: Anion Gap 15.5; BUN Creatinine Ratio 7.1; Calcium 9.3 mg/dL (8.5-10.1); Carbon Dioxide 26.3 mmol/L (21.0-32.0); Chloride 104 mmol/L (98-107); Estimated GFR (African America 57 (>=60 mL/min/1.73m^2); Estimated GFR (Non-African Ame 47 (>=60 mL/min/1.73m^2); Glucose 120 mg/dL (74-106); Potassium 3.8 mmol/L (3.5-5.1); Sodium 142 mmol/L (136-145); Troponin I High Sensitivity 23.2 pg/mL (4.0-51.3)
[2024-10-23 04:49] LABS: Influenza Virus A Antigen Negative; Influenza Virus B Antigen Negative; Internal Control Within Normal Limits; SARS-CoV-2 Ag NEGATIVE (NEGATIVE)
[2024-10-23 04:50] VITALS: TEMP 36.4
[2024-10-23] MEDS: BENZONATATE 100 MG CAPSULE PO (06:11)
[2024-10-23] MEDS: DOXYCYCLINE MONOHYDRATE 100 MG CAPSULE PO (06:11)
== END 2024-10-23 06:20 | disposition home or self-care (01) ==
PROVIDERS: Emergency Provider Emergency Medicine; PCP Family Medicine
DX: J06.9 Acute upper respiratory infection, unspecified (principal); R06.02 Shortness of breath; F17.200 Nicotine dependence, unspecified, uncomplicated
CPT/HCPCS: 36415; 71045; 80048; 84484; 85025; 85378; 87804; 87811; 93005; 94640; 99285

== ENCOUNTER 2025-03-24 14:44 | Outpatient (OUT) | payer MEDICARE, SELFPAY ==
--- OUTSIDE RECORDS SUMMARY | 2024-10-29 10:45 | XMS_ITS ---
Author Organization [facility] in [place] Address [address] [place] [address] Care Team Providers Care Reinsurance Claims Analyst Name Role Phone Taras May Primary Care Provider REASON FOR VISIT er f/u Encounters Encounter Location Date Provider Diagnosis [facility] [address] [facility] [place] [address] 10/29/2024 Taras May Plan Of Treatment No Information Progress Notes * Marcia WORTHY KDOB:1949 (74 yo F)Acc No.[id number]:10/29/2024 UNLOCKED PROGRESS NOTE Progress Note Patient: Marcia MARIE Provider: Sharla May MD (TTC) :1950 A ge:74 Y S ex:Female Date:10/29/2024 [id number] Subjective: * Chief Complaints: * 1 . Er f/u. * Medical History: Objective: * Vitals: Assessment: Plan: * Treatment: * * Electronic signature of Taras May MD, [id number] on 03/24/2025 at 02:51 PM EDT Sign off status: Pending Visit Status: C ANC (Cancelled) * Provider: Sharla May MD (TTC) Date: 0 10/29/2024 Generated for Printi ng/Faxing/eTransmitting on: 0 03/24/2025 02:51 PM EDT
--- OUTSIDE RECORDS SUMMARY | 2025-03-24 10:00 | XMS_ITS ---
Author Organization The [facility] in [place] Address [address] [place] [address] Care Team Providers Care Yarn Handler Name Role Phone Taras May Primary Care Provider [phone] Allergies No Known Allergies REASON FOR VISIT Medicare Wellness Medications Medication SIG (Take, Route, Frequency, Duration) Notes Start Date End Date Status Namenda XR 21 MG 1 capsule Orally Onc e a day for 14 days 02/25/2024 Not-Taking Simvastatin 40 MG 1 tablet in the even ing Orally Once a day for 30 days 07/11/2023 Not-Taking Citalopram Hydrobromide 10 MG TAKE 1 TABLET BY MOUTH EVERY DAY FOR 30 DAYS for 90 Not-Taking Social History Tobacco Use: Social History Observation Description Date Details (start date - stop date) Former Smoker 10/20/1965 - 10/20/2018 Tobacco Control (Standard) Question Answer Notes Tobacco use: Former smoker When did you start smoking? 10/20/1965 When did you stop smoking? 10/20/2018 Additional Findings: Tobacco non-user Ex-moderat e cigarette smoker (10-19/day) AUDIT-C (Standard) Question Answer Notes Did you have a drink containing alcohol in the p ast year? No Points 0 Interpretation Negative Vital Signs Blood pressure systolic 102 mm Hg 03/24/20 25 Blood pressure diastolic 58 mm Hg 025 Height 62 in 03/24/2025 Weight 116.2 lbs 03/24/2025 BMI 21.25 kg/m2 03/24/2025 Encounters Encounter Location Date Provider Diagnosis [facility] [address] [place] [address] 03/24/2025 Taras May Elevated glucose R73.09 and Encounter for Medicare annual wellness exam Z00.00 Assessments Encounter Date Diagnosis (ICD Code) Assessment Notes Treatment Notes Treatment Clinical Notes Section Notes 03/24/2025 Elevated glucose (ICD-10 - R73.09) patient presents to the office for a subsequent medicare wellness appointment, safety screening, anxiety and depression screenings were completed with no concerns, a slums memory test was completed and the patient scored a 18/30, patient struggled with answering the questions and admits having trouble with her memory. patient made several comments about a ringing in her hears and would like a referral to an ent, patient said today the ringing is very loud and does bother her a lot and just wants it to go away. patient is also not taking any of her medications and cannot remember the last time she took any of her meds. she also use to see neurology for her memory but also couldnt remember why she stopped going, daughter reports patient can be very stubborn and noncomplient with appointments and medications patient did start crying during the appointment and promises to follow through with any referrals and labs. patient is due for an A1C and that was ordered, patient is also due for a mammogram. also patient was supposed to have her prolia injection in aug but refused to get the shot, she is now asking what she needs to do to get that restarted 03/24/2025 Encounter for Medicare annual wellness exam (ICD-10 - Z00.00) patient presents to the office for a subsequent medicare wellness appointment, safety screening, anxiety and depression screenings were completed with no concerns, a slums memory test was completed and the patient scored a 18/30, patient struggled with answering the questions and admits having trouble with her memory. patient made several comments about a ringing in her hears and would like a referral to an ent, patient said today the ringing is very loud and does bother her a lot and just wants it to go away. patient is also not taking any of her medications and cannot remember the last time she took any of her meds. she also use to see neurology for her memory but also couldnt remember why she stopped going, daughter reports patient can be very stubborn and noncomplient with appointments and medications patient did start crying during the appointment and promises to follow through with any referrals and labs. patient is due for an A1C and that was ordered, patient is also due for a mammogram. also patient was supposed to have her prolia injection in aug but refused to get the shot, she is now asking what she needs to do to get that restarted Plan Of Treatment Pending Test Test Name Order Date GLYCOHEMOGLOBIN A1C 03/24/2025 Progress Notes * Marcia WORTHY KDOB:1949 (74 yo F)Acc No.[id number]:03/24/2025 UNLOCKED PROGRESS NOTE Progress Note Patient: Marcia MARIE Provider: Sharla May ([facility])MD :1950 A ge:74 Y S ex:Female Date:03/24/2025 Address:[place], [id number] Check In:01:48 PM EST Subjective: * Chief Complaints: * 1 . Medicare Wellness. * HPI: Erika frias Annual Wellness Visit: Type of Visit: [facility]ness [place] (SAWV).? Visual Acuity: N /A. Other Providers of Care: C are Team reviewed with patient: Neena lindo, and updates made in [place] of Care Physical Activity: D o you exercise regularly? Y es T ype of exercise: _ __ F requency: _ __ Nutrition/Diet: O n a typical day, how many servings of fruits and vegetables do you consume? 0 I n a typical week, how many servings of fried or high fat (such as cheese, fatty meat) do you consume? 0 I n a typical week, how many servings of high fiber or whole grain foods do you consume? 0 Seat Belt: D o you always use your seat belt in your car??Yes A re you having difficulties driving your car??No C an you get to places out of walking distance without help? Y es Dental: H ow would you describe the condition of your mouth and teeth, including any false teeth or dentures? E xcellent Medication List Follow-Up: D uring the past four weeks, how much bodily pain do you have? N o pain D o you have a current opioid prescription??No Self Assessment of Health: H ow would you rate your overall health the past four weeks? E xcellent H ow confident are you that you can control and manage most of your health problems? V shahab confident H ow have things been going for you during the past four weeks? V shahab well; could hardly be better D uring the past four weeks, was someone available to help you if you needed and wanted help? Y es, as much as I wanted (Example: if you felt nervous, lonely, or blue; got sick and had to stay in bed; needed someone to talk to; help with daily chores; or needed help just taking care of yourself) D o you have any sexual problems? N o D o you have any troubles eating well? N o D o you have any problems with tiredness or fatigue? N o H ave you noticed any hearing difficulties??No Sun Exposure: D o you protect yourself from over exposure to the sun when outdoors? Y es Mental Wellness: D uring the past four weeks, how much have you been bothered by emotional problems such as feeling anxious, depressed, irritable, sad, or downhearted and blue? N ot at all D uring the past four weeks, has your physical and emotional health limited your social activities with family, friends, neighbors, or groups??Not at all Functional Ability and Safety Screening: D o you need assistance with any of the following? Select all that apply. N one D oes your home have rugs in the hallway, lack grab bars in the bathroom, lack handrails on the stairs or have poor lighting? N o D o you feel unsteady and/or dizzy when standing or walking? N o D o you have smoke detectors in your home and routinely change the batteries? Y es D o you have a fire extinguisher and know how to use it properly? Y es D o you have any problems with your living situation, food, transportation, utilities, or safety? N o Cognitive Screening: H ave you experienced any memory issues or problems with thinking? N o H ave your family members, friends, caretakers, or others raised any concerns? N o D o you get confused or easily distracted more than you used to? N o H as your ability to concentrate seem to have declined recently? N o End of Life Planning: D o you have a living will? Y es D o you have a Durable Power of Permit Agent? Y es W ould you like to discuss this topic today??Yes SDOH A gree to complete Social Determinants of Health questionnaire Y es W ithin the past 12 months, did you worry that your food would run out before you got money to buy more? N o W ithin the past 12 months, did the food you bought just not last and you didn't have money to buy more? N o W ithin the past 12 months, have you ever stayed: outside, in a car, in a a tent, in an overnight half-way, or temporarily in someone else's home??No A re you worried about losing your housing??No W ithin the past 12 months, have you been able to get utilities (heat, electricity) when it was really needed? N o W ithin the past 12 months, has a lack of transportation kept you from medical appointments or from doing things needed for daily living? N o D o you feel physically or emotionally unsafe where you currently live? N o W ould you like help with any of these needs that you have identified? N o * Medical History: A cute Cystitis, Furuncle of Breast, Bladder Spasms, Near Syncope, Dysphagia, Seasonal Allergies. * Surgical History: H ysterectomy , right shoulder surgery . * Family History: F ather: , diagnosed with Diabetes mellitus without mention of complication, type II or unspecified type, not stated as uncontrolled. M other: . B rother(s): alive, lung cancer, diagnosed with Other malignant neoplasm of unspecified site. S on(s): alive. D hans(s): alive. 4 brother(s) , 5 sister(s) . 1 son(s) , 4 daughter(s) . . * Social History: T obacco Use: T obacco Control (Standard) T obacco use: F ormer smoker W hen did you start smoking? 0 10/20/1965 W hen did you stop smoking? 0 10/20/2018 A dditional Findings: Tobacco non-user E x-moderate cigarette smoker (10-19/day) D rug/Alcohol: A TIMMY-C (Standard) D id you have a drink containing alcohol in the past year? N o P oints 0 I nterpretation N egative * Medications: N ot-Taking/PRN Citalopram Hydrobromide 10 MG Tablet TAKE 1 TABLET BY MOUTH EVERY DAY FOR 30 DAYS , Not-Taking/PRN Namenda XR 21 MG Capsule Extended Release 24 Hour 1 capsule Orally Once a day , Not-Taking/PRN Simvastatin 40 MG Tablet 1 tablet in the evening Orally Once a day , Medication List reviewed and reconciled with the patient * Allergies: N .K.D.A. Objective: * Vitals: W t:116.2lbs, Ht: 62 in, BP:102/58mm Hg, BMI:21.25Index, Ht-cm: 157.48 cm, Wt-k.71 kg. Assessment: * Assessment: 1. E levated glucose - R73.09 (Primary) 2 . E ncounter for Medicare annual wellness exam - Z00.00 patient [facility] for a subsequent medicare wellness appointment, safety screening, anxiety and depression screenings were completed with no concerns, a slums memory test was completed and the patient scored a 18/30, patient struggled with answering the questions and admits having trouble with her memory. patient made several comments about a ringing in her hears and would like a referral to an ent, patient said today the ringing is very loud and does bother her a lot and just wants it to go away. patient is also not taking any of her medications and cannot remember the last time she took any of her meds. s he also use to see neurology for her memory but also couldnt remember why she stopped going, daughter reports patient can be very stubborn and noncomplient with appointments and medications patient did start crying during the appointment and promises to follow through with any referrals and labs. patient is due for an A1C and that was ordered, patient is also due for a mammogram. also patient was supposed to have her prolia injection in aug but refused to get the shot, she is now asking what she needs to do to get that restarted Plan: * Treatment: * Procedure Codes: G 0439 ANNUAL WELLNESS, SUBSEQ * Preventive Medicine: Screenings/Counseling: F ALL RISK SCREENING Fall Risk Assessment: N o falls in the past year * * Electronic signature of Taras May MD, [id number] on 03/24/2025 at 02:51 PM EDT Sign off status: Pending Visit Status: A RR (Check-In) * Provider: Sharla May ([facility])MD Date: 0 03/24/2025 Generated for Juan yoder/Barry on: 03/24/2025 02:51 PM EDT History and Physical Notes * HPI (History of Present Illness) Category Sub-Category Detail Notes Category Not es Medicare Annual Wellness Visit Type of Visit: Subsequent Annual Wellness Visit (SAWV) Cognitive Screening: Have you experience d any memory issues or problems with thinking?: No Have your family members, fr iends, caretakers, or others raised any concerns?: No Do you get confused or easily distracted more than you used to?: No Has your ability to concentrate seem to have declined recently?: No Self Assessment of Health: How would you rate your overall health the past four weeks?: Excellent How confident are you that y ou can control and manage most of your health problems?: Very confident How have things been going f or you during the past four weeks?: Very well; could hardly be better During the past four weeks, was someone available to help you if you needed and wanted help?: Yes, as much as I wanted (Example: if you felt nervous, lonely, o r blue; got sick and had to stay in bed; needed someone to talk to; help with daily chores; or needed help just taking care of yourself) Do you have any sexual problems?: No Do you have any troubles eating well?: N o Do you have any problems wit h tiredness or fatigue?: No Have you noticed any hearing difficulties?: No Physical Activity: Do you exercise regularly?: Y es Type of exercise:: ___ Frequency:: ___ Functional Ability and Safety Screening: Do you need assistance with any of the following? Select all that apply.: None Does your home have rugs in the hallway, lack grab bars in the bathroom, lack handrails on the stairs or have poor lighting?: No Do you feel unsteady and/or dizzy when s tanding or walking?: No Do you have smoke detectors in your home and routinely change the batteries?: Yes Do you have a fire extinguisher and know how to use it properly?: Yes Do you have any problems wit h your living situation, food, transportation, utilities, or safety?: No Visual Acuity: N/A Nutrition/Diet: On a typical day, ho w many servings of fruits and vegetables do you consume?: 0 In a typical week, how many servings of fried or high fat (such as cheese, fatty meat) do you consume?: 0 In a typical week, how many servings of high fiber or whole grain foods do you consume?: 0 Seat Belt: Do you always use your seat belt in your car?: Yes Are you having difficulties driving your car?: No Can you get to places out of walking dis tance without help?: Yes Dental: How would you descri be the condition of your mouth and teeth, including any false teeth or dentures?: Excellent Medication List Follow-Up: During the pa st four weeks, how much bodily pain do you have?: No pain Do you have a current opioid prescriptio n?: No Mental Wellness: During the past four weeks, how much have you been bothered by emotional problems such as feeling anxious, depressed, irritable, sad, or downhearted and blue?: Not at all During the past four weeks, has your physical and emotional health limited your social activities with family, friends, neighbors, or groups?: Not at all Sun Exposure: Do you protect yours elf from over exposure to the sun when outdoors?: Yes End of Life Planning: Do you have a living will? : Yes Do you have a Durable Power of Permit Agent? : Yes Would you like to discuss this topic tod ay?: Yes Other Providers of Care: Care Team haydee carballo with patient:: Yes, and updates made in [place] of Care [facility] Agree to complete [facility] Determinants of Health questionnaire: Yes Within the past 12 months, did you worry that your food would run out before you got money to buy more?: No Within the past 12 months, did the food you bought just not last and you didn't have money to buy more?: No Within the past 12 months, have you ever stayed: outside, in a car, in a a tent, in an overnight half-way, or temporarily in someone else's home?: No Are you worried about losing your housing?: No Within the past 12 months, have you been able to get utilities (heat, electricity) when it was really needed?: No Within the past 12 months, has a lack of transportation kept you from medical appointments or from doing things needed for daily living?: No Do you feel physically or emotionally unsafe where you currently live?: No Would you like help with any of these needs that you have identified?: No
--- OUTSIDE RECORDS SUMMARY | 2025-03-24 10:43 | XMS_ITS ---
Author Organization [facility] in [place] Address [address] [place] [address] Care Team Providers Care Take Off Man Name Role Phone Keithcaryl Taras Primary Care Provider REASON FOR VISIT medicare wellness Medications Medication SIG (Take, Route, Frequency, Duration) Notes Start Date End Date Status Citalopram Hydrobromide 10 MG TAKE 1 TABLET BY MOUTH EVERY DAY FOR 30 DAYS for 90 Active Namenda XR 21 MG 1 capsule Orally Onc e a day for 14 days 02/25/2024 Active Simvastatin 40 MG 1 tablet in the even ing Orally Once a day for 30 days 07/11/2023 Active Encounters Encounter Location Date Provider Diagnosis [address] [address] 03/24/2025 Taras May Memory loss R41.3 Assessments Encounter Date Diagnosis (ICD Code) Assessment Notes Treatment Notes Treatment Clinical Notes Section Notes 03/24/2025 Memory loss (ICD-10 - R41.3) Plan Of Treatment Medication Medication Name Sig Start Date Stop Date Notes Citalopram Hydrobromide 10 MG TAKE 1 TAB LET BY MOUTH EVERY DAY FOR 30 DAYS for 90 Namenda XR 21 MG 1 capsule Orally Onc e a day for 14 days 02/25/2024 Simvastatin 40 MG 1 tablet in the even ing Orally Once a day for 30 days 07/11/2023 Progress Notes * Marcia WORTHY KDOB:1949 (74 yo F)Acc No.[id number]:03/24/2025 UNLOCKED PROGRESS NOTE Patient: Marcia MARIE :1950 A ge:74 Y S ex:Female Address:[facility] [place] [address] * Refills Refill Simvastatin Tablet, 40 MG, Orally, 30, 1 tablet in the evening, Once a day, 30 days, Refills=11 Refill Citalopram Hydrobromide Tablet, 10 MG, 90 Tablet, TAKE 1 TABLET BY MOUTH EVERY DAY FOR 30 DAYS, 90, Refills=1 Refill Namenda XR Capsule Extended Release 24 Hour, 21 MG, Orally, 14 Capsule, 1 capsule, Once a day, 14 days, Refills=0 * * Date:
--- OUTSIDE RECORDS SUMMARY | 2025-03-24 14:51 | XMS_ITS | Clinical Summary ---
Author Organization The [facility] Address [address] [place] [address] Care Team Providers Care Building Trades Instructor Name Role Phone Unavailable Primary Care Provider Unavailabl e Social History Tobacco Use Types Packs/Day Years Used Date Smoking Tobacco: Never Assessed [place] Safety & Environment Answer Date Rec orded Fear of Current or Ex-Partner Not on file Emotionally Abused Not on file 12/11/2023 Physically Abused Not on file 12/11/2023 Sexually Abused Not on file 12/11/2023 Physically or Sexually Abused Not on file Sex and Gender Information Value Date Recorded Sex Assigned at Not on file Gender Identity Not on file Sexual Orientation Not on file Plan of Treatment Not on file
--- OUTSIDE RECORDS SUMMARY | 2025-03-24 14:51 | XMS_ITS | Referral Summary ---
Author Organization The [facility] Address [address] [place] [address] Care Team Providers Care Entry Tech Name Role Phone Unavailable Primary Care Provider [...]
--- OUTSIDE RECORDS SUMMARY | 2025-03-24 14:51 | XMS_ITS | Clinical Summary ---
Author Organization [facility] Address [address] [place] [address] Care Team Providers Care Senior Assistant Manager Name Role Phone Shar May MD Primary Care Provider [phone] Allergies No known active allergies Medications citalopram (CeleXA) 10 MG tablet Take 10 mg by mouth Daily Active simvastatin (Zocor) 40 MG tablet Take 40 mg by mouth at bedtime Active donepezil (Aricept) 5 MG tabletIndication s:Mild late onset Alzheimer's dementia, unspecified whether behavioral, psychotic, or mood disturbance or anxiety (CMS/HCC) Take 1 tablet (5 mg) by mouth at bedtime 30 tablet 11 09/02/2024 09/02/20 25 Active QUEtiapine (SEROquel) 25 MG tabletIndication s:Mild late onset Alzheimer's dementia, unspecified whether behavioral, psychotic, or mood disturbance or anxiety (CMS/HCC) Take 1/2 tablet at bedtime. 15 tablet 2 10/25/2024 Active Social History Tobacco Use Types Packs/Day Years Used Date Smoking Tobacco: Never Assessed Comments Unknown Sex and Gender Information Value Date Recorded Sex Assigned at Not on file Legal Sex Female 8:29 PM EDT Gender Identity Not on file Sexual Orientation Not on file Last Filed Vital Signs Vital Sign Reading Time Taken Comments Blood Pressure 138/72 09/02/2024 1:59 PM EST Pulse 83 09/02/2024 1:59 PM EST Temperature - - Respiratory Rate - - Oxygen Saturation 97% 09/02/2024 1:59 PM EST Inhaled Oxygen Concentration - - Weight 57.6 kg (127 lb) 09/02/2024 1:59 PM EST Height 154.9 cm (5' 1 ) 09/02/2024 1:59 PM EST Body Mass Index 24 09/02/2024 1:59 PM EST Plan of Treatment Health Maintenance Due Date Last Done Comments Pneumococcal Vaccine: 65+ Ye ars (2 of 2 - PPSV23) 08/28/2020 08/28/2019 Influenza Vaccine (Season Ended) 2025 08/28/2021, 07/21/2020, 08/28/2019, Additional history exists Colonoscopy Discontinued 10/04/2015 Colorectal Cancer Screening Discontinued Mammogram Discontinued 09/06/2021 CT Colonography Discontinued FIT-DNA Discontinued FIT Discontinued FOBT Discontinued Sigmoidoscopy Discontinued Procedures Procedure Name Priority Date/Time Associated Diagnosis Comments BI MAMMOGRAM SCREENING TOMOSYNTHESIS BILATERAL Routine 09/06/2021 Encounter for screening mammogram for malignant neoplasm of breast Candidiasis of vulva and vagina Acute vulvitis Encounter for gynecological examination (general) (routine) without abnormal findings Encounter for screening for malignant neoplasm of vagina Encounter for screening for osteoporosis Asymptomatic menopausal state Stress incontinence (female) (male) Right lower quadrant pain COLONOSCOPY Routine 10/04/2015 12:00 PM EST from Last 3 Months or Most Recently Relevant to Health Maintenance Results * Bilateral screening mammogram with tomosynthesis (09/06/2021) Anatomical Region Laterality Modality Breast Bilateral Mammography Impressions 09/06/2021 12:00 AM EST BIRADS 2 : BENIGN FINDINGS, NORMAL INTERVAL FOLLOW UP. FOLLOW-UP: 12 months DENSITY: Scattered MAMMOGRAPHY IS VERY IMPORTANT TO YOUR HEALTH. THE CURRENT [employer] GUIDELINES RECOMMENDS ANNUAL MAMMOGRAPHY BEGINNING AT AGE 38 THIS FACILITY USES A REMINDER SYSTEM TO ENSURE ALL PATIENTS RECEIVE REMINDER NOTIFICATIONS AT THE APPROPRIATE TIME BASED ON THE RECOMMENDATIONS OF THIS EXAM. Board Certified Radiologist. Accredited by the ACR and FDA. Report reported and signed by Rudi Urban on 09/07/2021 1113 Narrative 09/06/2021 12:00 AM EST PERFORMED AT [facility] LOCATION:[place] [address] CLINICAL HISTORY: Screening Mammogram COMPARISON: None available TECHNIQUE: 2D and 3D mammogram imaging of both breasts was performed. RESULT: DENSITY: There are scattered areas of fibroglandular density. There is no suspicious mass, asymmetry, architectural distortion, or calcification. Scattered benign calcifications. Procedure Note CONVERSION, GENERIC - 04/25/2023 PERFORMED AT [facility] LOCATION:[place] [id number] CLINICAL HISTORY: Screening Mammogram COMPARISON: None available TECHNIQUE: 2D and 3D mammogram imaging of both breasts was performed. RESULT: DENSITY: There are scattered areas of fibroglandular density. There is no suspicious mass, asymmetry, architectural distortion, orcalcification. Scattered benign calcifications. IMPRESSION: BIRADS 2 : BENIGN FINDINGS, NORMAL INTERVAL FOLLOW UP. FOLLOW-UP: 12 months DENSITY: Scattered MAMMOGRAPHY IS VERY IMPORTANT TO YOUR HEALTH. THE [employer] GUIDELINES RECOMMENDS ANNUALMAMMOGRAPHY BEGINNING AT AGE 38 THIS FACILITY USES A REMINDER SYSTEM TO ENSURE ALL PATIENTS RECEIVEREMINDER NOTIFICATIONS AT THE APPROPRIATE TIME BASED ON THE RECOMMENDATIONS OF THIS EXAM. Board Certified Radiologist. Accredited by the ACR and FDA. Report reported and signed by Rudi Urban on 09/07/2021 1113 Alex Corado MD IMG BI PROCEDURES Final Result * Colonoscopy (10/04/2015 12:00 PM EST) Anatomical Region Laterality Modality Endoscopy 10/04/2015 12:0 0 PM EST Narrative 10/04/2015 12:00 PM EST PERFORMED AT [facility] LOCATION:[id number] Abnormal see scanned document. Procedure Note CONVERSION, GENERIC - 03/06/2023 PERFORMED AT [facility] LOCATION:[id number] Abnormal see scanned document. Jacob Parr MD ENDOSCOPY PROCEDURE ORDERABL ES Final Result from Last 3 Months or Most Recently Relevant to Health Maintenance Insurance MEDICARE AAR Care Teams Senior Assistant Manager Relationship Specialty Start Date End Date Shar May MD PCP - General Family Medicine 08/18/24
[2025-03-24 15:11] LABS: Estimated Average Glucose 105 mg/dL; Glycohemoglobin A1C 5.3 % (4.5-6.2)
== END 2025-03-24 14:45 | disposition home or self-care (01) ==
LOC: LAB 14:49
PROVIDERS: PCP Family Medicine; Visit Provider Family Medicine
DX: R73.09 Other abnormal glucose (principal)
CPT/HCPCS: 36415; 83036

== ENCOUNTER 2025-04-08 07:46 | Outpatient (RCR) | payer MEDICARE, SELFPAY ==
[2025-04-07 12:48] LABS: Calcium 9.7 mg/dL (8.5-10.1); Estimated GFR (African America >60 (>=60 mL/min/1.73m^2); Estimated GFR (Non-African Ame >60 (>=60 mL/min/1.73m^2)
[2025-04-08 10:40] VITALS: BP 145/62; PULSE 93; TEMP 36.6; O2SAT 98
[2025-04-08] MEDS: DENOSUMAB 60 MG/ML SYRINGE SUBQ (10:47)
== END 2025-04-19 09:49 | disposition home or self-care (01) ==
LOC: LAB 07:46
PROVIDERS: PCP Family Medicine; Visit Provider Family Medicine
DX: Z51.81 Encounter for therapeutic drug level monitoring (principal); M81.0 Age-related osteoporosis without current pathological fracture
CPT/HCPCS: 36415; 82310; 82565; 96372; J0897